=== PATIENT | female | born 1955 | race Caucasian/White ===

== ENCOUNTER 2016-06-11 08:56 | Inpatient (IN) | payer MEDICAID ==
[~2016-06-11] VITALS: Ht 165.1 cm; Wt 103.2 kg
[~2016-06-11 08:56] MED LIST: BENTYL10 MG PO; BIAXIN500 MG PO; BUTORPHANOL10 MG/M1 NAS; CALCIUM 500 +1 EAC3 PO; CELEXA20 MG; CELEXA20 MG PO; CELEXA40 MG PO; COPPERAS1 GRA PO; COUMADIN1 M1 PO; COUMADIN10 M1 PO; COUMADIN5 M1; COUMADIN5 M2 PO; COUMADIN6 M2 PO; Coumadin5 MG PO; DEPAKOTE250 MG PO; DILANTIN100 MG; DOCUSATE SODIU100 M3 PO; DOCUSATE SODIUM PO; DOXEPIN25 MG PO; DOXYCYCLINE HY100 M3 PO; FLOVENT DI50 MCG/ACT; FLUTICASON0.05 MG/AC NAS; FOSAMAX35 MG PO; FOSAMAX70 MG; IRON TABLETS325 MG; IRON325 M1 PO; KCL; KCL PO; LASIX40 MG; LASIX40 MG PO; LEVOTHYROXINE0.1 MG PO; MACROBID100 M1 PO; Mysoline50 MG; NADOLOL40 MG PO; NEBULIZER AEROS1 DEV; NEURONTIN800 MG PO; OSCAL/D,OYSTER250 MG; OXYCONTIN10 MG; OXYCONTIN20 MG PO; OYSTER CAL 500500 MG PO; OYSTER SHELL C1 EAC3 PO; PANTOPRAZOLE SO40 MG PO; POTASSIUM CHLO20 ME3 PO; PRED FORTE 10 M10 ML OP; PREVACID30 M1 PO; PRILOSEC20 M1; PROAIR HFA0.09 MG/AC; PROAIR HFA0.09 MG/AC INH; PROPRANOLOL1 MG/ML PO; REQUIP1 MG PO; RESTORIL15 MG PO; SENNA DOCUSATE1 TAB; SEROQUEL300 MG; SEROQUEL400 MG; SINGULAIR10 MG; SINGULAIR10 MG PO; STADOL NS10 MG/ML NS; SYNTHROID,LEVO50 MCG; SYNTHROID,LEVO50 MCG PO; TEMAZEPAM15 MG; TOPAMAX100 M1 PO; TOPAMAX100 MG; TOPAMAX100 MG PO; TRAZADONE HYDR100 MG; TRAZADONE HYDR100 MG PO; TRILEPTAL600 MG; TRILEPTAL600 MG PO; VALIUM10 MG; VALIUM5 MG PO; VICO75300 PO; VICODIN 5/500 505 MG; VICODIN 5/500 505 MG PO; VICODIN ES 7501 TA1 PO; VISTARIL50 MG; VITAMIN D50000 I2; XANAX2 MG; XANAX2 MG PO; ZOFRAN4 MG; ZOFRAN4 MG PO; [UNRECOGNIZED DRUG - OTHER]
[2016-06-11 09:19] LABS: BASO % 0.4 % (0.0-1.0); EOS # 0.2 10*3/uL (0.0-0.4); EOS % 2.2 % (1.0-4.0); HEMATOCRIT 36.3 % (37.0-47.0); HEMOGLOBIN 12.3 g/dl (12.0-16.0); LYMPH # 1.1 10*3/uL (1.3-4.4); LYMPH % 16.2 % (27.0-41.0); MEAN CELL VOLUME 87.1 fl (81.0-99.0); MEAN CORPUSCULAR HGB 29.5 pg (27.0-31.0); MEAN CORPUSCULAR HGB CONC 33.9 g/dl (33.0-37.0); MEAN PLATELET VOLUME 8.7 fl (9.6-12.3); MONO # 0.3 10*3/uL (0.1-1.0); MONO % 4.6 % (3.0-9.0); NEUT # 5.2 10*3/uL (2.3-7.9); NEUT % 76.3 % (47.0-73.0); PLATELET COUNT AUTOMATED 198 10*3/uL (130-400); RED BLOOD COUNT 4.17 10*6/uL (4.10-5.10); RED CELL DISTRI WIDTH 13.5 % (0-14.5); WHITE BLOOD COUNT 6.8 10*3/uL (4.8-10.8)
[2016-06-11 09:30] LABS: PROTHROMBIN TIME 11.1 SECONDS (9.0-12.4)
[2016-06-11 09:33] LABS: BUN 4 mg/dl (7-24); CARBON DIOXIDE 24 mmol/L (21-32); CHLORIDE 93 mmol/L (98-107); EST GLOM FILT AFRICAN AMERICAN > 60 ml/min; GLUCOSE 124 mg/dL (65-99); POTASSIUM 4.3 mmol/L (3.5-5.1); SODIUM 127 mmol/L (136-145)
[2016-06-11 18:12] LABS: CKMB 1.2 ng/ml (0.5-3.6)
[2016-06-11 18:18] LABS: TROPONIN I 0.052 ng/ml (<0.045)
[2016-06-12 01:23] LABS: CKMB 1.6 ng/ml (0.5-3.6); TROPONIN I 0.035 ng/ml (<0.045)
[2016-06-12 06:32] LABS: BASO % 0.2 % (0.0-1.0); EOS % 0.2 % (1.0-4.0); HEMATOCRIT 35.5 % (37.0-47.0); HEMOGLOBIN 12.1 g/dl (12.0-16.0); LYMPH # 1.2 10*3/uL (1.3-4.4); LYMPH % 28.6 % (27.0-41.0); MEAN CELL VOLUME 87.2 fl (81.0-99.0); MEAN CORPUSCULAR HGB 29.7 pg (27.0-31.0); MEAN CORPUSCULAR HGB CONC 34.1 g/dl (33.0-37.0); MEAN PLATELET VOLUME 8.7 fl (9.6-12.3); MONO # 0.4 10*3/uL (0.1-1.0); MONO % 9.1 % (3.0-9.0); NEUT # 2.6 10*3/uL (2.3-7.9); NEUT % 61.4 % (47.0-73.0); PLATELET COUNT AUTOMATED 205 10*3/uL (130-400); RED BLOOD COUNT 4.07 10*6/uL (4.10-5.10); RED CELL DISTRI WIDTH 13.8 % (0-14.5); WHITE BLOOD COUNT 4.3 10*3/uL (4.8-10.8)
[2016-06-12 06:49] LABS: CKMB 1.4 ng/ml (0.5-3.6); TROPONIN I 0.033 ng/ml (<0.045)
[2016-06-12 07:03] LABS: ALBUMIN 2.7 gm/dl (3.1-4.5); ALKALINE PHOSPHATASE 96 U/L (45-117); BILIRUBIN, TOTAL 0.4 mg/dl (0.2-1.0); BUN 3 mg/dl (7-24); CARBON DIOXIDE 25 mmol/L (21-32); CHLORIDE 102 mmol/L (98-107); CHOLESTEROL 131 mg/dL (<200); EST GLOM FILT AFRICAN AMERICAN > 60 ml/min; FREE T4 1.25 ng/dl (0.76-1.46); GLUCOSE 107 mg/dL (65-99); HDL CHOLESTEROL 61 mg/dl (40-60); LDL CHOLESTEROL 59 mg/dL (9-159); POTASSIUM 3.9 mmol/L (3.5-5.1); SGOT/AST 15 IU/L (3-35); SGPT/ALT 11 U/L (12-78); SODIUM 138 mmol/L (136-145); TOTAL PROTEIN 6.1 gm/dL (6.4-8.2); TRIGLYCERIDES 57 mg/dl (<150); VLDL CHOLESTEROL 11 mg/dL (6-40)
[2016-06-12 07:08] LABS: THYROID STIM HORMONE (HS) 0.008 uIU/ml (0.358-4.75)
[2016-06-12 07:09] LABS: INTERNATIONAL NORM RATIO 1.1 (2.0-3.5); PROTHROMBIN TIME 11.8 SECONDS (9.0-12.4)
[2016-06-12 07:44] LABS: HEMOGLOBIN A1c 5.1 % (4.8-5.6)
[2016-06-12 08:10] LABS: VITAMIN D, 25-HYDROXY 24.6 ng/mL (30-100)
[2016-06-12 08:11] LABS: FOLIC ACID 4.93 ng/mL (>5.38)
[2016-06-12] MEDS ORDERED: VESICARE5 MG PO (09:16)
[2016-06-12] MEDS ORDERED: PROAIR HFA8.5 GM INH (09:16)
[2016-06-12] MEDS ORDERED: AMBIEN10 M1 PO (09:18)
== END 2016-06-12 13:51 | disposition home or self-care (01) | DRG 304 ==
LOC: ED 08:56 → EDHOLD 12:34 → 4E 12:34
PROVIDERS: Emergency Medicine; Hospitalist
DX: I16.1 Hypertensive emergency (principal); E43 Unspecified severe protein-calorie malnutrition; N18.3 Chronic kidney disease, stage 3 (moderate); E87.1 Hypo-osmolality and hyponatremia; I12.9 Hypertensive chronic kidney disease with stage 1 through stage 4 chronic kidney disease, or unspecified chronic kidney disease; G43.101 Migraine with aura, not intractable, with status migrainosus; G89.29 Other chronic pain; E53.8 Deficiency of other specified B group vitamins; E03.9 Hypothyroidism, unspecified; G40.909 Epilepsy, unspecified, not intractable, without status epilepticus; J44.9 Chronic obstructive pulmonary disease, unspecified; E04.9 Nontoxic goiter, unspecified; D63.8 Anemia in other chronic diseases classified elsewhere; F17.200 Nicotine dependence, unspecified, uncomplicated; Z68.37 Body mass index [BMI] 37.0-37.9, adult; Z86.718 Personal history of other venous thrombosis and embolism; Z87.01 Personal history of pneumonia (recurrent); Z87.440 Personal history of urinary (tract) infections; Z83.3 Family history of diabetes mellitus; Z82.49 Family history of ischemic heart disease and other diseases of the circulatory system; Z82.3 Family history of stroke; Z79.899 Other long term (current) drug therapy; Z91.14 Patient's other noncompliance with medication regimen; Z71.6 Tobacco abuse counseling

== ENCOUNTER 2016-06-25 15:00 | Emergency (ER) | payer MEDICAID ==
[~2016-06-25] VITALS: Ht 170.1 cm; Wt 81.6 kg
--- NOTE | ~2016-06-25 | EKG ---
[place], [place] ELECTROCARDIOGRAM REPORT NAME: SCOTT KARIMI UNIT #: [id number] ROOM: DOCTOR: MAGDIEL SINGER MD BIRTHDATE: [birth year] DOS: 06/25/2016 TIME: 16:00. Sinus rhythm, probable left atrial enlargement, otherwise normal electrocardiogram. MAGDIEL SINGER MD CM:EKGRPT:ELECTROCARDIOGRAM REPORT [id number] MAGDIEL SINGER MD
[~2016-06-25 15:00] MED LIST changes: +AMBIEN10 M1 PO; +PROAIR HFA8.5 GM INH; +VESICARE5 MG PO
[2016-06-25 16:11] LABS: BASO # 0.1 10*3/uL (0.0-0.1); BASO % 0.5 % (0.0-1.0); EOS % 0.2 % (1.0-4.0); HEMATOCRIT 43.4 % (37.0-47.0); HEMOGLOBIN 14.7 g/dl (12.0-16.0); LYMPH # 1.9 10*3/uL (1.3-4.4); LYMPH % 20.4 % (27.0-41.0); MEAN CELL VOLUME 88.2 fl (81.0-99.0); MEAN CORPUSCULAR HGB 29.9 pg (27.0-31.0); MEAN CORPUSCULAR HGB CONC 33.9 g/dl (33.0-37.0); MEAN PLATELET VOLUME 8.8 fl (9.6-12.3); MONO # 0.7 10*3/uL (0.1-1.0); MONO % 7.6 % (3.0-9.0); NEUT # 6.5 10*3/uL (2.3-7.9); PLATELET COUNT AUTOMATED 258 10*3/uL (130-400); RED BLOOD COUNT 4.92 10*6/uL (4.10-5.10); RED CELL DISTRI WIDTH 14.5 % (0-14.5); WHITE BLOOD COUNT 9.1 10*3/uL (4.8-10.8)
[2016-06-25 16:27] LABS: ALBUMIN 3.2 gm/dl (3.1-4.5); ALKALINE PHOSPHATASE 116 U/L (45-117); BILIRUBIN, TOTAL 0.4 mg/dl (0.2-1.0); BUN 7 mg/dl (7-24); CARBON DIOXIDE 27 mmol/L (21-32); CHLORIDE 97 mmol/L (98-107); EST GLOM FILT AFRICAN AMERICAN > 60 ml/min; GLUCOSE 113 mg/dL (65-99); POTASSIUM 4.5 mmol/L (3.5-5.1); SGOT/AST 14 IU/L (3-35); SGPT/ALT 17 U/L (12-78); SODIUM 134 mmol/L (136-145); TOTAL PROTEIN 7.7 gm/dL (6.4-8.2)
[2016-06-25 16:29] LABS: TROPONIN I < 0.015 ng/ml (<0.045)
[2016-06-25 16:42] LABS: BILIRUBIN NEGATIVE (NEGATIVE); BLOOD 2+ (NEGATIVE); CLARITY CLEAR (CLEAR); COLOR YELLOW (YELLOW); GLUCOSE NEGATIVE (NEGATIVE); KETONE 1+ (NEGATIVE); LEUKO ESTERASE NEGATIVE (NEGATIVE); NITRITE NEGATIVE (NEGATIVE); PROTEIN 1+ (NEGATIVE); SPECIFIC GRAVITY 1.015 (1.005-1.030)
[2016-06-25 16:58] LABS: EPITHELIAL CELLS 30-35; MUCOUS 1+
[2016-06-25 16:58] LABS: INTERNATIONAL NORM RATIO 1.1 (2.0-3.5); PROTHROMBIN TIME 11.2 SECONDS (9.0-12.4)
[2016-06-25 16:59] LABS: BACTERIA TRACE; URINE REFLEX COMMENT YES (NO); YEAST TRACE
== END 2016-06-25 18:17 | disposition short-term general hospital (02) ==
LOC: ED 15:00
PROVIDERS: Family Medicine Adult Medicine
DX: R41.82 Altered mental status, unspecified (principal); F17.200 Nicotine dependence, unspecified, uncomplicated; D64.9 Anemia, unspecified; G89.29 Other chronic pain; J44.9 Chronic obstructive pulmonary disease, unspecified; I10 Essential (primary) hypertension; G43.909 Migraine, unspecified, not intractable, without status migrainosus; E03.9 Hypothyroidism, unspecified; F31.9 Bipolar disorder, unspecified; G40.909 Epilepsy, unspecified, not intractable, without status epilepticus; Z79.01 Long term (current) use of anticoagulants; Z90.49 Acquired absence of other specified parts of digestive tract; Z98.890 Other specified postprocedural states; Z86.718 Personal history of other venous thrombosis and embolism; Z79.899 Other long term (current) drug therapy

== ENCOUNTER 2016-07-06 15:54 | Emergency (ER) | payer MEDICAID ==
[~2016-07-06] VITALS: Ht 170.1 cm; Wt 117.0 kg
[2016-07-06 16:26] LABS: BASO % 0.3 % (0.0-1.0); EOS # 0.1 10*3/uL (0.0-0.4); EOS % 1.1 % (1.0-4.0); HEMATOCRIT 40.7 % (37.0-47.0); HEMOGLOBIN 13.3 g/dl (12.0-16.0); LYMPH # 1.5 10*3/uL (1.3-4.4); LYMPH % 15.9 % (27.0-41.0); MEAN CELL VOLUME 92.7 fl (81.0-99.0); MEAN CORPUSCULAR HGB 30.3 pg (27.0-31.0); MEAN CORPUSCULAR HGB CONC 32.7 g/dl (33.0-37.0); MEAN PLATELET VOLUME 8.8 fl (9.6-12.3); MONO # 0.7 10*3/uL (0.1-1.0); MONO % 7.4 % (3.0-9.0); NEUT # 6.9 10*3/uL (2.3-7.9); NEUT % 74.9 % (47.0-73.0); PLATELET COUNT AUTOMATED 289 10*3/uL (130-400); RED BLOOD COUNT 4.39 10*6/uL (4.10-5.10); RED CELL DISTRI WIDTH 14.9 % (0-14.5); WHITE BLOOD COUNT 9.2 10*3/uL (4.8-10.8)
[2016-07-06 16:45] LABS: ALBUMIN 3.3 gm/dl (3.1-4.5); BILIRUBIN, TOTAL 0.5 mg/dl (0.2-1.0); BUN 4 mg/dl (7-24); C-REACTIVE PROTEIN 1.68 MG/DL (0-0.3); CARBON DIOXIDE 26 mmol/L (21-32); CHLORIDE 105 mmol/L (98-107); EST GLOM FILT AFRICAN AMERICAN > 60 ml/min; GLUCOSE 135 mg/dL (65-99); MAGNESIUM 1.6 mg/dL (1.5-2.1); POTASSIUM 3.2 mmol/L (3.5-5.1); SGOT/AST 14 IU/L (3-35); SGPT/ALT 17 U/L (12-78); SODIUM 138 mmol/L (136-145); TOTAL PROTEIN 7.4 gm/dL (6.4-8.2)
[2016-07-06 16:46] LABS: ALKALINE PHOSPHATASE 103 U/L (45-117); CPK 50 U/L (26-192)
[2016-07-06 16:47] LABS: TROPONIN I < 0.015 ng/ml (<0.045)
[2016-07-06] MEDS ORDERED: MELATONIN1 M4 PO (17:47)
[2016-07-06 19:26] LABS: BILIRUBIN NEGATIVE (NEGATIVE); BLOOD 1+ (NEGATIVE); CLARITY CLOUDY (CLEAR); COLOR YELLOW (YELLOW); GLUCOSE NEGATIVE (NEGATIVE); KETONE NEGATIVE (NEGATIVE); LEUKO ESTERASE NEGATIVE (NEGATIVE); NITRITE NEGATIVE (NEGATIVE); PH 5.5 (5.0-9.0); PROTEIN TRACE (NEGATIVE); UROBILINOGEN 0.2 E.U./dl (0.2-1.0)
[2016-07-06 19:36] LABS: URINE AMPHETAMINES < 1000 (1000ng/ml); URINE BARBITURATES < 200 (200ng/ml); URINE COCAINE < 300 (300ng/ml)
[2016-07-06 19:38] LABS: BACTERIA 1+; EPITHELIAL CELLS TNTC; MUCOUS 1+; URINE REFLEX COMMENT YES (NO)
== END 2016-07-07 02:55 | disposition short-term general hospital (02) ==
LOC: ED 15:54
PROVIDERS: Student in an Organized Health Care Education/Training Program
DX: R56.9 Unspecified convulsions (principal); J44.9 Chronic obstructive pulmonary disease, unspecified; I10 Essential (primary) hypertension; E03.9 Hypothyroidism, unspecified; G89.29 Other chronic pain; G43.909 Migraine, unspecified, not intractable, without status migrainosus; G40.909 Epilepsy, unspecified, not intractable, without status epilepticus; F17.200 Nicotine dependence, unspecified, uncomplicated; Z79.899 Other long term (current) drug therapy

== ENCOUNTER → 2016-07-10 | Outpatient (CLI) | payer MEDICAID ==
[~2016-07-10] MED LIST changes: +MELATONIN1 M4 PO
== END | disposition home or self-care (01) ==
LOC: RAD 15:50
DX: M15.0 Primary generalized (osteo)arthritis (principal); M47.897 Other spondylosis, lumbosacral region

== ENCOUNTER 2016-07-31 03:12 | Inpatient (IN) | payer MEDICAID ==
[~2016-07-31] VITALS: Ht 165.1 cm; Wt 98.4 kg
--- NOTE | ~2016-07-31 | PR ---
[place], [place] PROGRESS NOTE NAME: SCOTT KARIMI UNIT #: [id number] ROOM: 310 DOCTOR: HANNAH SAVAGE MD BIRTHDATE: [birth year] DOS: 08/04/2016 INTERVAL NOTE CHIEF COMPLAINT: "Oh my goodness I slept so much better, I'm a new woman." SUMMARY OF THE VISIT: The patient was interviewed in the dining area as she walked down the chirinos into the dining area. She engaged readily in conversation and smiled and shook my hand. She reports that she slept well through the entire night and feels so much better from both a depression and anxiety standpoint. She reports no somnolence, lightheadedness or dizziness and is willing to maintain the current medication regimen to see if the symptom resolution persists. She is hopeful that if she has another good day today that she could be discharged then tomorrow. MENTAL STATUS: She is alert and oriented to person, place and very approximate to time. Mood is trending strongly towards euthymia. Affect is more appropriate. The anxiety level seems to have dissipated. There is no hypomania or greta. There are no overt auditory or visual hallucinations. No delusions, no paranoia. Memory is intact. PLAN: I will maintain the current psychotropic regimen, continue to engage in individual and arguelles milieu activity, monitor and support returning home when stable. HANNAH SAVAGE MD CM:PNTRANS [id number] HANNAH SAVAGE MD 08/05/16 0202 interface
--- NOTE | ~2016-07-31 | PR ---
[place], [place] PROGRESS NOTE NAME: SCOTT KARIMI UNIT #: [id number] ROOM: 309 DOCTOR: HANNAH SAVAGE MD BIRTHDATE: [birth year] DOS: 08/02/2016 CHIEF COMPLAINT: "I didn't sleep at all last night, it is because I am in pain and I don't have my Valium." SUMMARY OF THE VISIT: The patient was interviewed in her room. Prior to me entering the room, she was lying quietly in bed. As I approached, she began to sought hysterically stating that she did not sleep a wink last night. When questioned as to why she thought she did not sleep, she very quickly stated that she was taking Valium 10 mg 3 times a day at home as well as Vicodin. I did tell her that I would consider prescribing some form of Valium, but could not prescribe the pain meds and that I would not continue prescribing the benzodiazepines post-discharge. She did tell me that she had a prescription at home from Dr. Key already there. Nurses say that she is very medication seeking throughout the day and very attention seeking, overall the extreme psychotic behavior and mood lability does seem to have dissipated. MENTAL STATUS: She is alert and oriented to person, place and time. Mood does seem to be trending towards euthymia despite the tears this morning. There is no hypomania or greta. There are no auditory or visual hallucinations. Short term, long-term and intermediate memory is intact. PLAN: I will go ahead and start her on Valium 5 mg 3 times daily as a stopgap measure to prevent withdrawal if she truly was on this dosing at home. I will increase the trazodone to 150 mg at bedtime to further aid sleep. We will reach out to Ana Atkins, her outpatient counselor, for some insight on her behavior. We will engage in individual and arguelles milieu activity, returning home when stable. HANNAH SAVAGE MD CM:PNTRANS [id number] HANNAH SAVAGE MD 08/02/16 1554 interface
--- NOTE | ~2016-07-31 | PR ---
[place], [place] PROGRESS NOTE NAME: SCOTT KARIMI UNIT #: [id number] ROOM: 309 DOCTOR: HANNAH SAVAGE MD BIRTHDATE: [birth year] DOS: 08/03/2016 CHIEF COMPLAINT: "I need help. I did not sleep at all. I am so tired and depressed." SUMMARY OF THE VISIT: The patient was interviewed in the quiet room. 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 She reports that the anxiety also is very high, and that she is having a hard time functioning. She also focus somewhat on the pain, reporting multiple past injurious and issues that will lead to her having more pain. She convincingly denied any medication side effects and is willing to allow me to adjust the medicines accordingly. We did talk about her signing in and having this become a work together relationship, and she is willing to sign in, in order to attempt to get the help she needs. MENTAL STATUS: She is alert and oriented. Mood does still seem to be somewhat depressed with anxious overtones. There is no greta or hypomania. There are no voice delusions or paranoia. Memory is relatively intact. PLAN: I will go ahead and increase her trazodone from 150 mg at bedtime to 300 mg at bedtime in an effort to combat the depression as well as aiding sleep. I will increase Valium from 5 mg 3 times a day to 10 mg 3 times a day and augment it with Zanaflex 4 mg 3 times a day. I will also order Zostrix high potency cream to be given 3 times a day to see if this will help with some of the significant joint pain that she is having. We will engage her in individual and arguelles milieu activity. I have notified, Ana Atkins, her outpatient counselor of her admission and Ana as supposed to be by today to discuss her case, will return home when stable. HANNAH SAVAGE MD CM:PNTRANS 3 HANNAH SAVAGE MD 08/03/1625 interface
--- NOTE | ~2016-07-31 | WRIGHTHP ---
[place], [place] PATIENT HISTORY AND PHYSICAL EXAM NAME: SCOTT KARIMI UNIT #: [id number] ROOM: 309 DOCTOR: HANNAH SAVAGE MD BIRTHDATE: [birth year] DOS: 07/31/2016 CHIEF COMPLAINT: "I am here because a miracle happened that does not make sense to me." HISTORY OF PRESENT ILLNESS: This is a 61-year-old white female who was brought into the Emergency Room at [facility] by her daughter due to significant alteration in mental status. Apparently, the patient has a lengthy history of bipolar or schizoaffective disorder and has had multiple admissions in her life many, recently due to extreme mood lability. Daughter reported to the Emergency Room physicians that her mom woke her up in the middle of the night, screaming and yelling reporting that a miracle had happened and that Michael had come to her, she was very volatile and agitated and verbally and physically threatening upon admission into the Emergency Room. The patient continued these behaviors. She was religiously preoccupied, grossly manic and psychotic and verbally and physically aggressive. She required p.r.n. intervention in order to settle down. Given the severity of her mental status decline, it was felt that an inpatient stabilization was warranted and she was admitted to the [facility] to rule out further organic factors and to stabilize on medication. MENTAL STATUS: Upon admission, the patient is alert and oriented. She is grossly manic and psychotic. Thoughts are disjointed and fragmented and she jumps from topic to topic, oftentimes not completing a sentence. At times, she is nearly pressured, but she is interruptible at the present time. She is very religiously preoccupied and very delusional. She does believe that she has been visited by Michael and that everybody else who has not been baptized or evil and are on the side of the devil and needs to be punished. She stopped sort of saying that she will punish them and hurt anybody. After a short conversation with me, she became very guarded and suspicious and would not talk to me stating that she wanted to have breakfast lay down and would talk to me further later in the day. Memory for what I was able to test seems to be relatively intact. DIAGNOSIS: Schizoaffective disorder. PLAN: I will go ahead and start her on Invega 6 mg in the morning in case, I need to utilize Invega Sustenna to improve compliance. I will attempt to load her with Depakote 1750 mg orally now in an effort to break the greta, followed by 500 mg t.i.d. I have ordered both Geodon p.r.n. and Ativan p.r.n. in case if it is required to prevent harm to self and others. We will attempt to engage her in individual and arguelles milieu activity. Of note, the patient had an exceptionally low TSH of 0.007. I have ordered a T3U and a free T4 and will defer further evaluation and management to the hospitalist. [place], [place] PATIENT HISTORY AND PHYSICAL EXAM NAME: SCOTT KARIMI UNIT #: [id number] ROOM: 309 DOCTOR: HANNAH SAVAGE MD BIRTHDATE: [birth year] HANNAH SAVAGE MD CM:HISPHYS:PATIENT HISTORY AND PHYSICAL EXAMINATION [id number] HANNAH SAVAGE MD 07/31/16 0841 interface
--- NOTE | ~2016-07-31 | DS ---
[place], [place] DISCHARGE SUMMARY NAME: SCOTT KARIMI UNIT #: [id number] ROOM: 310 DOCTOR: LIBORIO WEAVER BIRTHDATE: [birth year] DOS: 08/05/2016 HISTORY OF PRESENT ILLNESS: A 61-year-old female brought to the Emergency Room at [facility] by her daughter due to significant altered mental status. The patient has a lengthy history of bipolar or schizoaffective disorder and has had multiple admissions in her life recently due to extreme mood lability. Daughter reported that her mother woke up in the middle of the night, screaming and yelling reporting that a miracle had happened and Michael had come to her. She was very volatile, agitated, verbally and physically threatening. In the Emergency Room, she continue these behaviors throughout her stay. Allegedly preoccupied, but grossly manic, psychotic, verbally and physically aggressive. Given her severity of her mental status decline, it was felt that inpatient stabilization was warranted. She was admitted to rule out organic factors and stabilize on medication. PAST MEDICAL HISTORY: Hypertension, brain aneurysm, chronic anemia, chronic pain, COPD, goiter, headaches, DVT, hypothyroidism, metabolic encephalopathy, seizures. DIAGNOSES: Acute psychosis secondary to bipolar and schizoaffective disorder. MENTAL STATUS: The patient is alert and oriented to person, place, approximate time. Mood euthymic. Affect is appropriate. There are no overt signs of auditory or visual hallucinations, delusions, paranoia, greta or hypomania. PLAN: The patient is being discharged to home in stable condition. She will be on Valium 10 mg t.i.d. She does get this from Dr. Key and has had it recently filled we will not be prescribing a script for this vitamin D. She is on Zanaflex, this will help with some of her anxiety. Trileptal helps with her depression and her migraines. Depakote for her mood lability, impulsivity, and Invega to help break her psychosis and keep her hallucinations away. The patient should follow up with her primary care doctor and psychiatrist for further management and stabilization. [place], [place] DISCHARGE SUMMARY NAME: SCOTT KARIMI UNIT #: [id number] ROOM: 310 DOCTOR: LIBORIO WEAVER BIRTHDATE: [birth year] MIKAEL WEAVER CNP CM:LATA 0 57 LIBORIO WEAVER 08/05/161957 interface
--- NOTE | ~2016-07-31 | PR ---
[place], [place] PROGRESS NOTE NAME: SCOTT KARIMI UNIT #: [id number] ROOM: 309 DOCTOR: HANNAH SAVAGE MD BIRTHDATE: [birth year] DOS: 08/01/2016 CHIEF COMPLAINT: "I feel so much better. All I need is my Trileptal." SUMMARY OF THE VISIT: The patient was interviewed as she rested in bed. She did seem to be more goal oriented in her thinking. She, however, did report she did not want to continue taking some of the meds that I prescribed, instead she wanted to be on Valium, Trileptal and she needed her pain meds back. There does seem to be some med seeking going on. She is as I stated earlier more goal directed in her thinking, still somewhat fragmented at times, but she arranged herself in. Nurses report she has at least taken her medicines and does seem to be tolerating them well and they do seem already to be benefiting her. MENTAL STATUS: She is alert and oriented to person, place, and approximate to time. Mood does seem to be more euthymic. Affect more appropriate. There is no hypomania or greta. There is no overt auditory or visual hallucinations. No delusions are voiced. Memory is intact. PLAN: Her vitamin D level is low at 24.2. The hospitalists have already started her on vitamin D supplementation. I will check a Trileptal level in the a.m. to ensure that it is therapeutic. I will have nursing notify, Ana Atkins as the patient requests to see her plus Ana can help enlist her into being more compliant with her current medications being ordered for her now. We will continue to engage her in individual and arguelles milieu activity with the plan to return home when stable. HANNAH SAVAGE MD CM:PNTRANS [id number] HANNAH SAVAGE MD 08/01/16 2333 interface
[2016-07-31 03:38] VITALS: BP 142/92
[2016-07-31] MEDS ORDERED: PRINIVIL20 M1 PO (03:40)
[2016-07-31] MEDS ORDERED: GEODON20 MG PO (03:49)
[2016-07-31] MEDS ORDERED: TRAZODONE100 MG PO (03:50)
[2016-07-31] MEDS ORDERED: AVPAK PRIMIDONE50 M1 PO (03:50)
[2016-07-31] MEDS ORDERED: PROTONIX40 MG PO (03:50)
[2016-07-31] MEDS ORDERED: SYNTHROID RP0.088 MG PO (03:50)
[2016-07-31 03:51] LABS: BASO % 0.7 % (0.0-1.0); EOS # 0.1 10*3/uL (0.0-0.4); EOS % 1.7 % (1.0-4.0); HEMATOCRIT 38.3 % (37.0-47.0); HEMOGLOBIN 12.9 g/dl (12.0-16.0); LYMPH # 1.4 10*3/uL (1.3-4.4); LYMPH % 23.3 % (27.0-41.0); MEAN CORPUSCULAR HGB 30.6 pg (27.0-31.0); MEAN CORPUSCULAR HGB CONC 33.7 g/dl (33.0-37.0); MEAN PLATELET VOLUME 8.3 fl (9.6-12.3); MONO # 0.6 10*3/uL (0.1-1.0); MONO % 9.6 % (3.0-9.0); NEUT # 3.9 10*3/uL (2.3-7.9); NEUT % 64.5 % (47.0-73.0); PLATELET COUNT AUTOMATED 253 10*3/uL (130-400); RED BLOOD COUNT 4.21 10*6/uL (4.10-5.10); RED CELL DISTRI WIDTH 14.5 % (0-14.5); WHITE BLOOD COUNT 6.1 10*3/uL (4.8-10.8)
[2016-07-31] MEDS ORDERED: VALIUM10 MG PO (03:51)
[2016-07-31] MEDS ORDERED: PEPCID20 MG PO (03:51)
[2016-07-31] MEDS ORDERED: LISINOPRIL20 MG PO (03:51)
[2016-07-31] MEDS ORDERED: CARDIZEM30 MG PO (03:51)
[2016-07-31] MEDS ORDERED: Fioricet 325 MG1 TAB PO (03:52)
[2016-07-31] MEDS ORDERED: MELATONIN1 M3 SL (03:52)
[2016-07-31] MEDS ORDERED: TRILEPTAL PO (03:52)
[2016-07-31 04:07] LABS: ALBUMIN 3.5 gm/dl (3.1-4.5); ALKALINE PHOSPHATASE 122 U/L (45-117); BILIRUBIN, TOTAL 0.4 mg/dl (0.2-1.0); BUN 4 mg/dl (7-24); CARBON DIOXIDE 24 mmol/L (21-32); CHLORIDE 98 mmol/L (98-107); EST GLOM FILT AFRICAN AMERICAN > 60 ml/min; GLUCOSE 113 mg/dL (65-99); POTASSIUM 4.8 mmol/L (3.5-5.1); SGOT/AST 22 IU/L (3-35); SGPT/ALT 16 U/L (12-78); SODIUM 132 mmol/L (136-145); TOTAL PROTEIN 7.6 gm/dL (6.4-8.2)
[2016-07-31 04:15] LABS: THYROID STIM HORMONE (HS) 0.007 uIU/ml (0.358-4.75)
[2016-07-31 05:12] LABS: BILIRUBIN NEGATIVE (NEGATIVE); BLOOD TRACE-INTACT (NEGATIVE); CLARITY CLEAR (CLEAR); COLOR YELLOW (YELLOW); GLUCOSE NEGATIVE (NEGATIVE); KETONE NEGATIVE (NEGATIVE); LEUKO ESTERASE NEGATIVE (NEGATIVE); NITRITE NEGATIVE (NEGATIVE); PROTEIN NEGATIVE (NEGATIVE)
[2016-07-31 05:13] LABS: URINE AMPHETAMINES < 1000 (1000ng/ml); URINE BARBITURATES > 200 (200ng/ml); URINE COCAINE < 300 (300ng/ml)
[2016-07-31 05:26] LABS: URINE REFLEX COMMENT NO (NO); WBC 0-2 wbc/hpf (0-5)
[2016-07-31 07:34] VITALS: BP 131/86
[2016-07-31 09:16] LABS: HEMOGLOBIN A1c 4.7 % (4.8-5.6)
[2016-07-31 09:29] LABS: FREE T4 1.19 ng/dl (0.76-1.46)
[2016-07-31 20:00] VITALS: BP 110/60
[2016-08-01 07:43] VITALS: BP 118/56
[2016-08-01 19:29] VITALS: BP 152/91
[2016-08-02 08:03] VITALS: BP 128/82
[2016-08-02 20:28] VITALS: BP 141/84
[2016-08-03 07:47] VITALS: BP 140/86
[2016-08-03 20:39] VITALS: BP 131/78
[2016-08-04 07:53] VITALS: BP 126/66
[2016-08-04 20:32] VITALS: BP 128/56
[2016-08-05 07:49] VITALS: BP 143/74
[2016-08-05] MEDS ORDERED: PALIPERIDONE ER6 MG PO (08:18)
[2016-08-05] MEDS ORDERED: TRAZODONE150 MG PO (08:18)
[2016-08-05] MEDS ORDERED: DIAZEPAM5 MG PO (08:18)
[2016-08-05] MEDS ORDERED: DIVALPROEX SOD500 MG PO (08:18)
[2016-08-05] MEDS ORDERED: TIZANIDINE HCL4 MG PO (08:18)
[2016-08-05] MEDS ORDERED: D-1000 185 MG-11 TAB PO (10:10)
== END 2016-08-05 17:58 | disposition home health service (06) | DRG 885 ==
LOC: ED 03:12 → 3N 05:45
PROVIDERS: Emergency Medicine; Psychiatry & Neurology Psychiatry
DX: F25.0 Schizoaffective disorder, bipolar type (principal); E43 Unspecified severe protein-calorie malnutrition; D64.9 Anemia, unspecified; J44.9 Chronic obstructive pulmonary disease, unspecified; G89.29 Other chronic pain; Z86.718 Personal history of other venous thrombosis and embolism; G43.909 Migraine, unspecified, not intractable, without status migrainosus; Z71.6 Tobacco abuse counseling; Z82.49 Family history of ischemic heart disease and other diseases of the circulatory system; Z68.36 Body mass index [BMI] 36.0-36.9, adult; G40.909 Epilepsy, unspecified, not intractable, without status epilepticus; E03.9 Hypothyroidism, unspecified; E55.9 Vitamin D deficiency, unspecified; E05.80 Other thyrotoxicosis without thyrotoxic crisis or storm

== ENCOUNTER 2016-08-21 16:17 | Emergency (ER) | payer MEDICAID ==
[~2016-08-21] VITALS: Ht 167.6 cm; Wt 98.4 kg
[~2016-08-21 16:17] MED LIST changes: +AVPAK PRIMIDONE50 M1 PO; +CARDIZEM30 MG PO; +D-1000 185 MG-11 TAB PO; +DIAZEPAM5 MG PO; +DIVALPROEX SOD500 MG PO; +Fioricet 325 MG1 TAB PO; +GEODON20 MG PO; +LISINOPRIL20 MG PO; +MELATONIN1 M3 SL; +PALIPERIDONE ER6 MG PO; +PEPCID20 MG PO; +PRINIVIL20 M1 PO; +PROTONIX40 MG PO; +SYNTHROID RP0.088 MG PO; +TIZANIDINE HCL4 MG PO; +TRAZODONE100 MG PO; +TRAZODONE150 MG PO; +TRILEPTAL PO; +VALIUM10 MG PO
[2016-08-21 17:56] LABS: BASO % 0.2 % (0.0-1.0); EOS % 0.5 % (1.0-4.0); HEMATOCRIT 37.3 % (37.0-47.0); HEMOGLOBIN 12.3 g/dl (12.0-16.0); IG # 0.1 10*3/uL (0.0-0.1); LYMPH % 11.3 % (27.0-41.0); MEAN CELL VOLUME 92.3 fl (81.0-99.0); MEAN CORPUSCULAR HGB 30.4 pg (27.0-31.0); MEAN PLATELET VOLUME 9.2 fl (9.6-12.3); MONO # 1.3 10*3/uL (0.1-1.0); MONO % 14.5 % (3.0-9.0); NEUT # 6.4 10*3/uL (2.3-7.9); NEUT % 72.9 % (47.0-73.0); PLATELET COUNT AUTOMATED 163 10*3/uL (130-400); RED BLOOD COUNT 4.04 10*6/uL (4.10-5.10); WHITE BLOOD COUNT 8.7 10*3/uL (4.8-10.8)
[2016-08-21 18:08] LABS: INTERNATIONAL NORM RATIO 1.1 (2.0-3.5); PROTHROMBIN TIME 11.5 SECONDS (9.0-12.4)
[2016-08-21 18:12] LABS: ALBUMIN 2.9 gm/dl (3.1-4.5); ALKALINE PHOSPHATASE 72 U/L (45-117); BILIRUBIN, TOTAL 0.3 mg/dl (0.2-1.0); BUN 9 mg/dl (7-24); CARBON DIOXIDE 22 mmol/L (21-32); CHLORIDE 99 mmol/L (98-107); EST GLOM FILT AFRICAN AMERICAN > 60 ml/min; GLUCOSE 107 mg/dL (65-99); POTASSIUM 3.9 mmol/L (3.5-5.1); SGOT/AST 9 IU/L (3-35); SGPT/ALT 10 U/L (12-78); SODIUM 135 mmol/L (136-145); TOTAL PROTEIN 7.1 gm/dL (6.4-8.2)
== END 2016-08-21 19:02 | disposition short-term general hospital (02) ==
LOC: ED 16:17
PROVIDERS: Nurse Practitioner Family
DX: S72.142A Displaced intertrochanteric fracture of left femur, initial encounter for closed fracture (principal); F17.200 Nicotine dependence, unspecified, uncomplicated; G89.29 Other chronic pain; J44.9 Chronic obstructive pulmonary disease, unspecified; I10 Essential (primary) hypertension; E03.9 Hypothyroidism, unspecified; G43.909 Migraine, unspecified, not intractable, without status migrainosus; G40.909 Epilepsy, unspecified, not intractable, without status epilepticus; E55.9 Vitamin D deficiency, unspecified; Z90.49 Acquired absence of other specified parts of digestive tract; Z98.890 Other specified postprocedural states; Z79.899 Other long term (current) drug therapy; X58.XXXA Exposure to other specified factors, initial encounter; Y93.89 Activity, other specified; Y92.89 Other specified places as the place of occurrence of the external cause; Y99.9 Unspecified external cause status

== ENCOUNTER 2016-09-06 16:02 | Emergency (ER) | payer MEDICAID ==
[~2016-09-06] VITALS: Wt 86.2 kg
== END 2016-09-06 17:01 | disposition home or self-care (01) ==
LOC: ED 16:02
DX: F31.9 Bipolar disorder, unspecified (principal); F17.200 Nicotine dependence, unspecified, uncomplicated; Z90.49 Acquired absence of other specified parts of digestive tract; I10 Essential (primary) hypertension; E03.9 Hypothyroidism, unspecified; Z86.718 Personal history of other venous thrombosis and embolism; J44.9 Chronic obstructive pulmonary disease, unspecified; Z79.899 Other long term (current) drug therapy

== ENCOUNTER → 2016-09-11 | Outpatient (CLI) | payer MEDICAID ==
[2016-09-11 10:30] LABS: BASO % 0.4 % (0.0-1.0); EOS # 0.2 10*3/uL (0.0-0.4); EOS % 4.4 % (1.0-4.0); HEMATOCRIT 32.2 % (37.0-47.0); HEMOGLOBIN 10.5 g/dl (12.0-16.0); LYMPH # 1.4 10*3/uL (1.3-4.4); LYMPH % 28.6 % (27.0-41.0); MEAN CELL VOLUME 93.3 fl (81.0-99.0); MEAN CORPUSCULAR HGB 30.4 pg (27.0-31.0); MEAN CORPUSCULAR HGB CONC 32.6 g/dl (33.0-37.0); MEAN PLATELET VOLUME 8.6 fl (9.6-12.3); MONO # 0.6 10*3/uL (0.1-1.0); MONO % 11.7 % (3.0-9.0); NEUT # 2.7 10*3/uL (2.3-7.9); NEUT % 54.5 % (47.0-73.0); PLATELET COUNT AUTOMATED 228 10*3/uL (130-400); RED BLOOD COUNT 3.45 10*6/uL (4.10-5.10); RED CELL DISTRI WIDTH 14.4 % (0-14.5)
[2016-09-11 11:00] LABS: ALBUMIN 2.7 gm/dl (3.1-4.5); ALKALINE PHOSPHATASE 83 U/L (45-117); BILIRUBIN, TOTAL 0.3 mg/dl (0.2-1.0); BUN 7 mg/dl (7-24); CARBON DIOXIDE 26 mmol/L (21-32); CHLORIDE 97 mmol/L (98-107); EST GLOM FILT AFRICAN AMERICAN > 60 ml/min; GLUCOSE 87 mg/dL (65-99); POTASSIUM 4.5 mmol/L (3.5-5.1); SGOT/AST 12 IU/L (3-35); SGPT/ALT 9 U/L (12-78); SODIUM 133 mmol/L (136-145); TOTAL PROTEIN 6.4 gm/dL (6.4-8.2)
[2016-09-11 11:10] LABS: THYROID STIM HORMONE (HS) 0.011 uIU/ml (0.358-4.75)
== END | disposition home or self-care (01) ==
LOC: LAB 10:13
PROVIDERS: Physician Assistant
DX: M79.89 Other specified soft tissue disorders (principal); S72.002D Fracture of unspecified part of neck of left femur, subsequent encounter for closed fracture with routine healing; Z79.899 Other long term (current) drug therapy; X58.XXXD Exposure to other specified factors, subsequent encounter

== ENCOUNTER → 2016-12-11 | Outpatient (CLI) | payer MEDICAID | END | disposition home or self-care (01) | LOC: ORTHO 02:49 | DX: M17.12 Unilateral primary osteoarthritis, left knee (principal); M25.762 Osteophyte, left knee; M81.0 Age-related osteoporosis without current pathological fracture ==

== ENCOUNTER → 2017-01-06 | Outpatient (CLI) | payer MEDICAID | END | disposition home or self-care (01) | LOC: RAD 13:00 | DX: M85.80 Other specified disorders of bone density and structure, unspecified site (principal); E55.9 Vitamin D deficiency, unspecified; E03.9 Hypothyroidism, unspecified; R29.890 Loss of height; Z78.0 Asymptomatic menopausal state; Z47.89 Encounter for other orthopedic aftercare ==

== ENCOUNTER → 2017-02-26 | Outpatient (CLI) | payer MEDICAID | END | disposition home or self-care (01) | LOC: CT 00:41 | DX: M19.072 Primary osteoarthritis, left ankle and foot (principal); M21.962 Unspecified acquired deformity of left lower leg; M25.472 Effusion, left ankle ==

== ENCOUNTER → 2017-03-17 | Outpatient (CLI) | payer MEDICAID ==
[2017-03-17 14:25] LABS: BASO # 0.1 10*3/uL (0.0-0.1); BASO % 0.9 % (0.0-1.0); EOS # 0.1 10*3/uL (0.0-0.4); EOS % 1.7 % (1.0-4.0); HEMATOCRIT 37.1 % (37.0-47.0); HEMOGLOBIN 12.9 g/dl (12.0-16.0); LYMPH # 2.1 10*3/uL (1.3-4.4); LYMPH % 36.9 % (27.0-41.0); MEAN CELL VOLUME 91.6 fl (81.0-99.0); MEAN CORPUSCULAR HGB 31.9 pg (27.0-31.0); MEAN CORPUSCULAR HGB CONC 34.8 g/dl (33.0-37.0); MEAN PLATELET VOLUME 8.7 fl (9.6-12.3); MONO # 0.5 10*3/uL (0.1-1.0); MONO % 8.9 % (3.0-9.0); NEUT # 2.9 10*3/uL (2.3-7.9); NEUT % 51.1 % (47.0-73.0); PLATELET COUNT AUTOMATED 203 10*3/uL (130-400); RED BLOOD COUNT 4.05 10*6/uL (4.10-5.10); RED CELL DISTRI WIDTH 12.7 % (0-14.5); WHITE BLOOD COUNT 5.7 10*3/uL (4.8-10.8)
[2017-03-17 14:56] LABS: ALKALINE PHOSPHATASE 82 U/L (45-117); BUN 8 mg/dl (7-24); CHLORIDE 91 mmol/L (98-107); CHOLESTEROL 135 mg/dL (<200); CREATININE 0.56 mg/dL (0.55-1.02); HDL CHOLESTEROL 48 mg/dl (40-60); LDL CHOLESTEROL 70 mg/dL (9-159); POTASSIUM 4.1 mmol/L (3.5-5.1); SGOT/AST 10 IU/L (3-35); SGPT/ALT 12 U/L (12-78); SODIUM 124 mmol/L (136-145); TOTAL PROTEIN 7.1 gm/dL (6.4-8.2); TRIGLYCERIDES 86 mg/dl (<150); VLDL CHOLESTEROL 17 mg/dL (6-40)
[2017-03-17 15:10] LABS: THYROID STIM HORMONE (HS) < 0.005 uIU/ml (0.358-4.75)
== END | disposition home or self-care (01) ==
LOC: LAB 01:12
PROVIDERS: Orthopaedic Surgery
DX: I10 Essential (primary) hypertension (principal); E03.9 Hypothyroidism, unspecified; N32.81 Overactive bladder; E66.01 Morbid (severe) obesity due to excess calories

== ENCOUNTER → 2017-05-04 | Outpatient (CLI) | payer MEDICAID ==
[2017-05-04 14:23] LABS: BASO % 0.5 % (0.0-1.0); EOS # 0.1 10*3/uL (0.0-0.4); EOS % 2.6 % (1.0-4.0); HEMATOCRIT 34.9 % (37.0-47.0); HEMOGLOBIN 12.1 g/dl (12.0-16.0); LYMPH # 1.6 10*3/uL (1.3-4.4); LYMPH % 37.4 % (27.0-41.0); MEAN CELL VOLUME 91.4 fl (81.0-99.0); MEAN CORPUSCULAR HGB 31.7 pg (27.0-31.0); MEAN CORPUSCULAR HGB CONC 34.7 g/dl (33.0-37.0); MEAN PLATELET VOLUME 8.2 fl (9.6-12.3); MONO # 0.5 10*3/uL (0.1-1.0); MONO % 12.6 % (3.0-9.0); NEUT % 46.4 % (47.0-73.0); PLATELET COUNT AUTOMATED 218 10*3/uL (130-400); RED BLOOD COUNT 3.82 10*6/uL (4.10-5.10); RED CELL DISTRI WIDTH 12.7 % (0-14.5); WHITE BLOOD COUNT 4.3 10*3/uL (4.8-10.8)
[2017-05-04 14:52] LABS: ALKALINE PHOSPHATASE 75 U/L (45-117); BUN 10 mg/dl (7-24); CHLORIDE 92 mmol/L (98-107); CREATININE 0.57 mg/dL (0.55-1.02); POTASSIUM 4.3 mmol/L (3.5-5.1); SGOT/AST 10 IU/L (3-35); SGPT/ALT 13 U/L (12-78); SODIUM 125 mmol/L (136-145); VALPROIC ACID (DEPAKENE) 57.6 ug/ml (50-100)
[2017-05-04 15:04] LABS: THYROID STIM HORMONE (HS) < 0.005 uIU/ml (0.358-4.75)
== END | disposition home or self-care (01) ==
LOC: LAB 00:30
PROVIDERS: Physician Assistant
DX: Z51.81 Encounter for therapeutic drug level monitoring (principal); Z79.899 Other long term (current) drug therapy

== ENCOUNTER 2017-05-06 14:36 | Emergency (ER) | payer MEDICAID ==
[~2017-05-06] VITALS: Ht 167.6 cm; Wt 104.3 kg
[2017-05-06 15:55] LABS: BASO % 0.5 % (0.0-1.0); EOS # 0.1 10*3/uL (0.0-0.4); EOS % 2.1 % (1.0-4.0); HEMATOCRIT 35.2 % (37.0-47.0); HEMOGLOBIN 12.1 g/dl (12.0-16.0); LYMPH % 35.1 % (27.0-41.0); MEAN CORPUSCULAR HGB 31.3 pg (27.0-31.0); MEAN CORPUSCULAR HGB CONC 34.4 g/dl (33.0-37.0); MEAN PLATELET VOLUME 8.3 fl (9.6-12.3); MONO # 0.6 10*3/uL (0.1-1.0); MONO % 9.5 % (3.0-9.0); NEUT % 52.3 % (47.0-73.0); PLATELET COUNT AUTOMATED 213 10*3/uL (130-400); RED BLOOD COUNT 3.87 10*6/uL (4.10-5.10); RED CELL DISTRI WIDTH 12.6 % (0-14.5); WHITE BLOOD COUNT 5.8 10*3/uL (4.8-10.8)
[2017-05-06 16:10] LABS: ALKALINE PHOSPHATASE 70 U/L (45-117); BUN 10 mg/dl (7-24); CHLORIDE 91 mmol/L (98-107); CREATININE 0.51 mg/dL (0.55-1.02); POTASSIUM 4.7 mmol/L (3.5-5.1); SGOT/AST 10 IU/L (3-35); SGPT/ALT 14 U/L (12-78); SODIUM 127 mmol/L (136-145); TOTAL PROTEIN 6.8 gm/dL (6.4-8.2)
== END 2017-05-06 18:45 | disposition home or self-care (01) ==
LOC: ED 14:36
PROVIDERS: Emergency Medicine
DX: R60.0 Localized edema (principal); F17.200 Nicotine dependence, unspecified, uncomplicated; G89.29 Other chronic pain; J44.9 Chronic obstructive pulmonary disease, unspecified; I10 Essential (primary) hypertension; E03.9 Hypothyroidism, unspecified; G43.909 Migraine, unspecified, not intractable, without status migrainosus; G40.909 Epilepsy, unspecified, not intractable, without status epilepticus; Z90.49 Acquired absence of other specified parts of digestive tract; Z98.890 Other specified postprocedural states; Z86.718 Personal history of other venous thrombosis and embolism; Z79.899 Other long term (current) drug therapy

== ENCOUNTER → 2017-05-18 | Outpatient (CLI) | payer MEDICAID ==
[2017-05-18 16:04] LABS: BUN 14 mg/dl (7-24); CHLORIDE 92 mmol/L (98-107); CREATININE 0.68 mg/dL (0.55-1.02); POTASSIUM 3.7 mmol/L (3.5-5.1); SODIUM 128 mmol/L (136-145)
== END | disposition home or self-care (01) ==
LOC: LAB 13:38
PROVIDERS: Internal Medicine
DX: E03.9 Hypothyroidism, unspecified (principal); I72.9 Aneurysm of unspecified site

== ENCOUNTER → 2017-05-21 | Outpatient (CLI) | payer MEDICAID | END | disposition home or self-care (01) | LOC: CARD 05-20 14:00 | DX: I07.1 Rheumatic tricuspid insufficiency (principal); M17.12 Unilateral primary osteoarthritis, left knee; I10 Essential (primary) hypertension ==

== ENCOUNTER → 2017-05-25 | Outpatient (CLI) | payer MEDICAID ==
[~2017-05-25] MED LIST changes: +ALENDRONATE SOD70 M1 PO; +CYMBALTA60 MG PO; +DEPAKOTE ER500 MG PO; +DIAZEPAM10 M1 PO; +Ipratropium Brom3 ML INH; +LEVOTHYROXINE50 MCG PO; +OXYBUTYNIN5 MG PO; +Oscal,Oyster S500 MG PO; +TESSALON PERLE100 MG PO; +TRAMADOL HCL50 MG PO
[2017-05-25 16:43] LABS: BUN 6 mg/dl (7-24); CHLORIDE 83 mmol/L (98-107); CREATININE 0.62 mg/dL (0.55-1.02); POTASSIUM 3.9 mmol/L (3.5-5.1)
[2017-05-25 17:01] LABS: SODIUM 118 mmol/L (136-145); THYROID STIM HORMONE (HS) < 0.005 uIU/ml (0.358-4.75)
== END | disposition home or self-care (01) ==
LOC: LAB 15:47
PROVIDERS: Internal Medicine
DX: J45.909 Unspecified asthma, uncomplicated (principal); R09.89 Other specified symptoms and signs involving the circulatory and respiratory systems; M81.0 Age-related osteoporosis without current pathological fracture; I50.33 Acute on chronic diastolic (congestive) heart failure; E03.9 Hypothyroidism, unspecified; J43.9 Emphysema, unspecified

== ENCOUNTER 2017-05-26 11:24 | Inpatient (IN) | payer MEDICAID ==
[~2017-05-26] VITALS: Ht 167.6 cm; Wt 116.6 kg
[2017-05-26] VITALS (7 sets, daily range): BP systolic 106–128; BP diastolic 46–90
--- NOTE | ~2017-05-26 | CON ---
[place], [place] REPORT OF CONSULTATION NAME: SCOTT KARIMI UNIT #: [id number] ROOM: 408 DOCTOR: WILLIAM LUNSFORD MD BIRTHDATE: [birth year] DOS: 05/27/2017 REASON FOR CONSULTATION: Hyponatremia. HISTORY OF PRESENT ILLNESS: The patient is a 62-year-old female that is seen in renal consultation for hyponatremia. Upon review of laboratories, it looks like she has had acute on chronic hyponatremia for quite some time with levels as low as the 120 range. She came to the Emergency Department after outpatient labs showed a sodium level of 118 yesterday. She had been previously taken off of her Lasix after a long hospitalization and rehabilitation after postoperative pelvic fracture and hip replacement and subsequent recuperative therapy. She states that she was inadvertently taken off of Lasix during that period of time and was restarted on this on 05/11/2017 at 40 mg daily. In the interim, at that time when that lab had been done, May 06 labs showed sodium of 127 and May 18 labs showed a sodium of 128. Then May 25 labs showed the level of 118 and she came to the Emergency Department and subsequent labs yesterday and today showed an improvement to 123 and then 130. She was initially diuresed with IV Lasix because of increased fluid overload symptoms. She did not report use of thiazides. She had been prescribed metolazone per her report, but has not picked it up. Upon review of laboratories, she has also had what appears to be persistent primary hypothyroidism. It is as yet unclear as to what the diagnosis is. It appears back in 2007, she had some MRI testing of the brain as well as pituitary by Dr. Green. Her most recent free T4 levels are low at 0.74. She does report otherwise being compliant with her medications. Her prolactin levels when checked were within normal range as was her FSH and LH. Her cortisol and ACTH were normal this year. She has normal serum creatinine level at 0.71. Her A1c is normal. She has normal white count, no significant anemia and her urinalysis was done on the after being on Lasix. Electrolytes were not checked. She has been changed to a lower dose of Lasix, now 20 mg. She continues on lisinopril as well as tizanidine. She is not on opioids, but does take Ultram. She is on trazodone, Mysoline, oxybutynin, Cymbalta, Trileptal, carbamazepine, doxepin, Depakote, Zofran among others. She is reporting some exertional dyspnea, but no chest pains. She has been followed by the Cardiology team and it is felt that she is not in a state of significant cardiac dysfunction. She had a lower extremity Doppler done, which was negative for a DVT and a chest radiograph on the was unremarkable. REVIEW OF SYSTEMS: As per the HPI, otherwise all systems reviewed and negative. PAST MEDICAL, FAMILY AND SOCIAL HISTORY: Reviewed from the H and P, and otherwise unchanged. PHYSICAL EXAMINATION: VITAL SIGNS: Blood pressures in the 80s to the 100s/50s to 70s, afebrile, pulse in the 80s-90s, respiratory rate 18-24, pulse ox 92% on room air. GENERAL: The patient is age appropriate, obese female. She does use traditional cigarettes, has not done it recently when in the hospital. She is well developed and well-nourished otherwise. HEENT: In regard to her aneurysm clipping, she does not recall any history of hypothalamus or pituitary resection. Otherwise, normocephalic and atraumatic. [place], [place] REPORT OF CONSULTATION NAME: SCOTT KARIMI UNIT #: [id number] ROOM: [facility] DOCTOR: WILLIAM LUNSFORD MD BIRTHDATE: [birth year] NECK: Supple, without JVD or lymphadenopathy or bruit. CARDIOVASCULAR: Rate is controlled. No audible rub. No palpable lift or heave. LUNGS: Decreased bilaterally and distant secondary to habitus as well as air entry. No audible wheezing. Mild crackles, perhaps in the mid to lower lung miller. ABDOMEN: Obese, soft, nontender, no rebound, no guarding. SKIN: Without diffuse rashes or breakdowns or nodules. NEUROLOGIC: Without asterixis. Normal gross sensation and motor function. LABORATORIES AND DIAGNOSTICS: White blood cell count 5.1, hemoglobin 12.5, platelet count 256. INR normal. Coags normal. Sodium 130, up from 123 and 118; potassium 4.4; chloride 92; bicarbonate 31; BUN 10; creatinine 0.71; glucose 123. A1c 5, calcium 8.4, phosphorus 4.5, magnesium 2.3. LFTs unremarkable. TSH 0.007 and low, free T4 0.74 and low. Again recent ACTH and cortisol levels were unremarkable. Imaging was reviewed as above. ASSESSMENT AND PLAN: Hyponatremia. The etiology is unclear. The patient certainly had some mild polydipsia. She is on multiple medications, which may induce elevated inappropriate antidiuretic hormone levels in addition to recent pelvic fracture and surgery, which can induce inappropriate antidiuretic hormone level secondary to pain. For now, she seems to be improving with a loop diuretic as well as fluid restriction. Continue to monitor her on a moderate sodium intake and regular diet for now, but keep her the as noted 1500 mL fluid restriction. I would be interested to know what history of endocrinological workup she has had done for her pituitary and her what appears to be secondary hypothyroidism and low TSH. Continue replacement and continue low-dose loop diuretic for edema and continue to follow serial chemistries. The rate of change while somewhat abrupt is still within acceptable limits over the last 48 hours. Thank you very much for the kind consultation. WILLIAM LUNSFORD MD CM:CONSTR:REPORT OF CONSULTATION 01 05/27/172143 interface
--- NOTE | ~2017-05-26 | CON ---
[place], [place] REPORT OF CONSULTATION NAME: SCOTT KARIMI UNIT #: [id number] ROOM: 408 DOCTOR: MAGDIEL SINGER MD BIRTHDATE: [birth year] DOS: 05/26/2017 REASON FOR CONSULTATION: Dyspnea and fluid retention. HISTORY OF PRESENT ILLNESS: The patient is a 62-year-old woman who has a history of anxiety, bipolar disorder and chronic pain as well as ongoing cigarette abuse and obstructive lung disease. She states that recently she has noticed an increase in her fluid retention. She believes that she is gaining weight and that she is developing swelling of her hands and feet. In addition, laboratory studies done as an outpatient by her primary physician, Dr. Ortiz, indicated hyponatremia with a sodium level of 118. She presented to the Emergency Room where repeat sodium level was 123. She was admitted to the hospital for further evaluation. The patient does note that she had recently had her furosemide increased. Previously, she had been taking 20 mg daily, but it was recently increased to 40. She also admits that she consumes a large amount of fluid and even brings water to [facility] with her, so she can drink during the service. She denies lightheadedness or syncope. She denies orthopnea. She has not had any seizures. PAST MEDICAL HISTORY: Includes 1. Bipolar disorder with anxiety and depression. 2. History of "brain aneurysm," details not available. 3. Chronic pain syndrome. 4. Cigarette abuse with COPD. 5. History of goiter with hypothyroidism, on replacement. 6. History of left lower extremity deep venous thrombosis. 7. Essential hypertension. 8. Morbid obesity with BMI over 40. 9. History of cholecystectomy. 10. Left hip replacement. 11. Pelvic surgery. 12. Appendectomy. 13. Foot surgery. 14. Cerebral aneurysm repair. MEDICATIONS: Prior to admission included albuterol by metered dose inhaler p.r.n., DuoNeb q.i.d. p.r.n., alendronate 70 mg weekly, Tessalon Perles 100 mg t.i.d., calcium carbonate b.i.d., cholecalciferol 2000 units daily, diazepam 10 mg t.i.d. p.r.n., diltiazem 30 mg q.i.d., divalproex 500 mg t.i.d., doxepin 25 mg at bedtime, duloxetine 60 mg at bedtime, famotidine 20 mg daily, levothyroxine 50 mcg daily, lisinopril 20 mg daily, Trileptal 600 mg b.i.d., oxybutynin 5 mg b.i.d., paliperidone ER 6 mg daily, pantoprazole 40 mg daily, primidone 50 mg b.i.d., tizanidine 4 mg t.i.d., tramadol 50 mg q. 6 hours and trazodone 150 mg 2 tablets at bedtime. ALLERGIES: The patient has no known drug allergies. FAMILY HISTORY: Both the parents had heart attacks in their mid 50s. [place], [place] REPORT OF CONSULTATION NAME: SCOTT KARIMI UNIT #: [id number] ROOM: [facility] DOCTOR: MAGDIEL SINGER MD BIRTHDATE: [birth year] REVIEW OF SYSTEMS: The patient denies diplopia or loss of vision. She denies focal weakness. She denies lightheadedness or syncope. She does have dyspnea with exertion and fatigue. She denies nausea or vomiting. She denies hemoptysis or hematemesis. She denies orthopnea or PND. She denies chest pain, but she has been dyspneic. She denies change in bowel or bladder habits. She denies blood in her urine or stools. She states that her legs have been swollen, especially on the left. Remainder of the review of systems is negative except as noted above. SOCIAL HISTORY: The patient does not consume alcohol or illicit drugs, but she does smoke a half pack of cigarettes a day. PHYSICAL EXAMINATION: GENERAL: Reveals an overweight white female who is awake, alert and oriented. VITAL SIGNS: Pulse is 101 and regular, blood pressure is 106/54. She is afebrile. She weighs 116.6 kg and has a body mass index of 41.5. HEENT: Normocephalic and atraumatic. Extraocular muscles are intact. Sclerae are clear. Pupils are equal, round and react to light. The oral mucosa is moist. Tongue is midline. NECK: Supple. She had no jugular distention or hepatojugular reflux. Carotids were full. I heard no bruits. She had no neck or supraclavicular masses and no thyromegaly. LUNGS: Respirations are unlabored. She has decreased breath sounds at the bases, but no wheezes or rales. She has no presacral edema or chest wall tenderness. CARDIOVASCULAR: Her heart has a regular rhythm. She has no murmurs, rubs or gallops. The PMI is not displaced. There is no precordial heave, lift or thrill. ABDOMEN: Obese, but otherwise benign, without masses, organomegaly or bruits. EXTREMITIES: Showed trace edema on the right, 1+ edema on the left. Pedal pulses are easily palpated bilaterally. LABORATORY DATA: The patient's electrocardiogram showed sinus rhythm and was a normal tracing. Chest x-ray showed no acute pulmonary disease or cardiomegaly. A lower extremity venous ultrasound showed no evidence for DVT in either lower extremity. Hemoglobin is 12.2, hematocrit 35.0. There are 6400 white cells and 226,000 platelets present. Sodium is 123, potassium 4.3, chloride 89, CO2 of 27, BUN 9, creatinine 0.55, sugar is 109. Serial troponin levels have been negative. ProBNP level is minimally elevated at 308. Her urine specific gravity is less than 1.005. She does have evidence for urinary tract infection. An echocardiogram was done on 05/21/2017 and showed normal left ventricular size, wall thickness, regional wall motion and systolic function with an estimated ejection fraction of 65%. There was evidence for delayed left ventricular relaxation (stage 1 diastolic dysfunction). The right ventricular size and function were normal. The atrial dimensions were normal. No abnormality of valve structure or function was seen. IMPRESSION: [place], [place] REPORT OF CONSULTATION NAME: SCOTT KARIMI UNIT #: [id number] ROOM: 408 DOCTOR: MAGDIEL SINGER MD BIRTHDATE: [birth year] 1. Total body fluid overload with hyponatremia. Differential diagnosis includes drug induced syndrome of inappropriate antidiuretic hormone or psychogenic water drinking. 2. No evidence for significant cardiac dysfunction. 3. Bipolar disorder. 4. History of hypertension. 5. History of deep venous thrombosis. The patient shows no signs of deep venous thrombosis at this time. 6. Hypothyroidism, under replacement. 7. long-term and ongoing tobacco abuse. PLAN: At this point, no other cardiac workup is planned. I will initiate a fluid restriction until the patient has been seen by Nephrology. I think in the long run that will be most beneficial. I would rather not diurese her further at this time, but restrict how much fluid is going in the first place. We will continue to follow the patient with her other physicians and I thank the hospitalist physicians for asking our advice regarding her care. MAGDIEL SINGER MD CM:CONSTR:REPORT OF CONSULTATION 1846 05/26/17 2233 interface
[~2017-05-26 11:24] MED LIST changes: -ALENDRONATE SOD70 M1 PO; -CYMBALTA60 MG PO; -DEPAKOTE ER500 MG PO; -DIAZEPAM10 M1 PO; -Ipratropium Brom3 ML INH; -LEVOTHYROXINE50 MCG PO; -OXYBUTYNIN5 MG PO; -Oscal,Oyster S500 MG PO; -TESSALON PERLE100 MG PO; -TRAMADOL HCL50 MG PO
[2017-05-26] MEDS ORDERED: Ipratropium Brom3 ML INH (11:36)
[2017-05-26] MEDS ORDERED: LEVOTHYROXINE50 MCG PO ×2 (11:37→20:07)
[2017-05-26] MEDS ORDERED: PROAIR HFA8.5 GM INH (11:38)
[2017-05-26] MEDS ORDERED: Oscal,Oyster S500 MG PO (11:40)
[2017-05-26] MEDS ORDERED: ALENDRONATE SOD70 M1 PO (11:41)
[2017-05-26] MEDS ORDERED: OXYBUTYNIN5 MG PO (11:42)
[2017-05-26] MEDS ORDERED: TESSALON PERLE100 MG PO (11:45)
[2017-05-26] MEDS ORDERED: TRAMADOL HCL50 MG PO (11:46)
[2017-05-26 12:18] LABS: BASO % 0.3 % (0.0-1.0); EOS # 0.1 10*3/uL (0.0-0.4); EOS % 1.9 % (1.0-4.0); HEMOGLOBIN 12.2 g/dl (12.0-16.0); LYMPH # 1.2 10*3/uL (1.3-4.4); LYMPH % 18.8 % (27.0-41.0); MEAN CELL VOLUME 88.8 fl (81.0-99.0); MEAN CORPUSCULAR HGB CONC 34.9 g/dl (33.0-37.0); MEAN PLATELET VOLUME 8.1 fl (9.6-12.3); MONO # 0.7 10*3/uL (0.1-1.0); MONO % 10.6 % (3.0-9.0); NEUT # 4.4 10*3/uL (2.3-7.9); NEUT % 67.9 % (47.0-73.0); PLATELET COUNT AUTOMATED 226 10*3/uL (130-400); RED BLOOD COUNT 3.94 10*6/uL (4.10-5.10); RED CELL DISTRI WIDTH 12.5 % (0-14.5); WHITE BLOOD COUNT 6.4 10*3/uL (4.8-10.8)
[2017-05-26 12:32] LABS: ACT PARTIAL THROMBO TIME 26.1 SECONDS (20.8-31.5)
[2017-05-26 12:37] LABS: ALBUMIN 3.1 gm/dl (3.1-4.5); ALKALINE PHOSPHATASE 81 U/L (45-117); BUN 9 mg/dl (7-24); CHLORIDE 89 mmol/L (98-107); CREATININE 0.55 mg/dL (0.55-1.02); LIPASE 214 U/L (73-393); POTASSIUM 4.3 mmol/L (3.5-5.1); SGOT/AST 13 IU/L (3-35); SGPT/ALT 15 U/L (12-78); SODIUM 123 mmol/L (136-145); TOTAL PROTEIN 7.3 gm/dL (6.4-8.2); TROPONIN I < 0.015 ng/ml (<0.045); VALPROIC ACID (DEPAKENE) 28.9 ug/ml (50-100)
[2017-05-26 12:38] LABS: BILIRUBIN NEGATIVE (NEGATIVE); BLOOD 1+ (NEGATIVE); CLARITY CLOUDY (CLEAR); COLOR YELLOW (YELLOW); GLUCOSE NEGATIVE (NEGATIVE); KETONE NEGATIVE (NEGATIVE); LEUKO ESTERASE 3+ (NEGATIVE); NITRITE POSITIVE (NEGATIVE); PH 5.5 (5.0-9.0); SPECIFIC GRAVITY <= 1.005 (1.005-1.030)
[2017-05-26 12:49] LABS: BACTERIA 3+; EPITHELIAL CELLS 16-20; RBC 0-2 rbc/hpf (0-2); WBC TNTC wbc/hpf (0-5)
[2017-05-26] MEDS ORDERED: DOXEPIN25 MG PO (15:27)
[2017-05-26] MEDS ORDERED: CYMBALTA60 MG PO (15:29)
[2017-05-26] MEDS ORDERED: VALIUM10 MG PO (20:06)
[2017-05-26] MEDS ORDERED: DEPAKOTE ER500 MG PO (20:06)
[2017-05-26] MEDS ORDERED: DIAZEPAM10 M1 PO (20:12)
[2017-05-27 00:01] VITALS: BP 107/60
[2017-05-27 07:24] LABS: BASO % 0.6 % (0.0-1.0); EOS # 0.1 10*3/uL (0.0-0.4); EOS % 2.4 % (1.0-4.0); HEMATOCRIT 36.8 % (37.0-47.0); HEMOGLOBIN 12.5 g/dl (12.0-16.0); LYMPH # 1.5 10*3/uL (1.3-4.4); LYMPH % 29.5 % (27.0-41.0); MEAN CORPUSCULAR HGB 31.4 pg (27.0-31.0); MEAN PLATELET VOLUME 8.6 fl (9.6-12.3); MONO # 0.7 10*3/uL (0.1-1.0); MONO % 13.1 % (3.0-9.0); NEUT # 2.7 10*3/uL (2.3-7.9); NEUT % 53.8 % (47.0-73.0); PLATELET COUNT AUTOMATED 256 10*3/uL (130-400); RED BLOOD COUNT 3.98 10*6/uL (4.10-5.10); RED CELL DISTRI WIDTH 12.9 % (0-14.5); WHITE BLOOD COUNT 5.1 10*3/uL (4.8-10.8)
[2017-05-27 07:26] LABS: MEAN CELL VOLUME 92.5 fl (81.0-99.0)
[2017-05-27 07:27] LABS: ACT PARTIAL THROMBO TIME 25.9 SECONDS (20.8-31.5)
[2017-05-27 07:49] LABS: ALBUMIN 3.3 gm/dl (3.1-4.5); ALKALINE PHOSPHATASE 77 U/L (45-117); BUN 10 mg/dl (7-24); CHLORIDE 92 mmol/L (98-107); CREATININE 0.71 mg/dL (0.55-1.02); FREE T4 0.74 ng/dl (0.76-1.46); PHOSPHOROUS 4.5 mg/dL (2.5-4.9); POTASSIUM 4.4 mmol/L (3.5-5.1); SGOT/AST 12 IU/L (3-35); SGPT/ALT 14 U/L (12-78); SODIUM 130 mmol/L (136-145); TOTAL PROTEIN 7.3 gm/dL (6.4-8.2)
[2017-05-27 07:53] LABS: THYROID STIM HORMONE (HS) 0.007 uIU/ml (0.358-4.75)
[2017-05-27 08:00] VITALS: BP 115/78
[2017-05-27 12:00] VITALS: BP 90/58
[2017-05-27 16:00] VITALS: BP 88/52
[2017-05-27 20:00] VITALS: BP 100/49
[2017-05-28] VITALS: BP 100/52
[2017-05-28 07:02] LABS: BASO # 0.1 10*3/uL (0.0-0.1); BASO % 1.1 % (0.0-1.0); EOS # 0.2 10*3/uL (0.0-0.4); EOS % 3.8 % (1.0-4.0); HEMATOCRIT 35.6 % (37.0-47.0); HEMOGLOBIN 12.1 g/dl (12.0-16.0); LYMPH # 1.8 10*3/uL (1.3-4.4); LYMPH % 37.2 % (27.0-41.0); MEAN CELL VOLUME 92.2 fl (81.0-99.0); MEAN CORPUSCULAR HGB 31.3 pg (27.0-31.0); MEAN PLATELET VOLUME 8.8 fl (9.6-12.3); MONO # 0.8 10*3/uL (0.1-1.0); NEUT % 41.3 % (47.0-73.0); PLATELET COUNT AUTOMATED 237 10*3/uL (130-400); RED BLOOD COUNT 3.86 10*6/uL (4.10-5.10); WHITE BLOOD COUNT 4.8 10*3/uL (4.8-10.8)
[2017-05-28 07:19] LABS: BUN 14 mg/dl (7-24); CHLORIDE 95 mmol/L (98-107); POTASSIUM 4.4 mmol/L (3.5-5.1); SODIUM 129 mmol/L (136-145)
[2017-05-28 08:00] VITALS: BP 100/50
[2017-05-28 12:00] VITALS: BP 112/59
[2017-05-28 16:00] VITALS: BP 123/65
[2017-05-28 20:00] VITALS: BP 113/59
[2017-05-29] VITALS: BP 103/58
[2017-05-29 05:55] LABS: ALKALINE PHOSPHATASE 68 U/L (45-117); BUN 16 mg/dl (7-24); CHLORIDE 94 mmol/L (98-107); CREATININE 0.67 mg/dL (0.55-1.02); POTASSIUM 4.5 mmol/L (3.5-5.1); SGOT/AST 8 IU/L (3-35); SGPT/ALT 14 U/L (12-78); SODIUM 130 mmol/L (136-145)
[2017-05-29 06:13] LABS: BASO % 0.3 % (0.0-1.0); EOS % 0.3 % (1.0-4.0); HEMATOCRIT 35.7 % (37.0-47.0); LYMPH % 30.3 % (27.0-41.0); MEAN CORPUSCULAR HGB 30.9 pg (27.0-31.0); MEAN CORPUSCULAR HGB CONC 33.6 g/dl (33.0-37.0); MEAN PLATELET VOLUME 8.4 fl (9.6-12.3); MONO # 0.7 10*3/uL (0.1-1.0); MONO % 10.3 % (3.0-9.0); NEUT # 3.8 10*3/uL (2.3-7.9); NEUT % 58.3 % (47.0-73.0); PLATELET COUNT AUTOMATED 269 10*3/uL (130-400); RED BLOOD COUNT 3.88 10*6/uL (4.10-5.10); RED CELL DISTRI WIDTH 12.7 % (0-14.5); WHITE BLOOD COUNT 6.5 10*3/uL (4.8-10.8)
[2017-05-29 08:00] VITALS: BP 108/60
[2017-05-29 12:00] VITALS: BP 108/60
[2017-05-29] MEDS ORDERED: LISINOPRIL10 M1 PO (12:45)
[2017-05-29] MEDS ORDERED: PREDNISONE10 MG PO (12:45)
[2017-05-29] MEDS ORDERED: FUROSEMIDE40 MG PO (12:47)
== END 2017-05-29 13:45 | disposition home health service (06) | DRG 292 ==
LOC: ED 11:24 → EDHOLD 13:14 → 4E 13:14
PROVIDERS: Emergency Medicine; Internal Medicine
DX: I50.33 Acute on chronic diastolic (congestive) heart failure (principal); E87.1 Hypo-osmolality and hyponatremia; E44.0 Moderate protein-calorie malnutrition; E66.01 Morbid (severe) obesity due to excess calories; E87.8 Other disorders of electrolyte and fluid balance, not elsewhere classified; N39.0 Urinary tract infection, site not specified; Z68.41 Body mass index [BMI] 40.0-44.9, adult; I11.0 Hypertensive heart disease with heart failure; E87.70 Fluid overload, unspecified; R73.9 Hyperglycemia, unspecified; J44.9 Chronic obstructive pulmonary disease, unspecified; G40.909 Epilepsy, unspecified, not intractable, without status epilepticus; F41.9 Anxiety disorder, unspecified; F31.9 Bipolar disorder, unspecified; R32 Unspecified urinary incontinence; D64.9 Anemia, unspecified; Z96.642 Presence of left artificial hip joint; E53.8 Deficiency of other specified B group vitamins; E55.9 Vitamin D deficiency, unspecified; G89.4 Chronic pain syndrome; F17.210 Nicotine dependence, cigarettes, uncomplicated; R82.71 Bacteriuria; E03.9 Hypothyroidism, unspecified; G43.909 Migraine, unspecified, not intractable, without status migrainosus; Z90.49 Acquired absence of other specified parts of digestive tract; Z90.89 Acquired absence of other organs; Z86.718 Personal history of other venous thrombosis and embolism; Z82.49 Family history of ischemic heart disease and other diseases of the circulatory system; Z79.899 Other long term (current) drug therapy; Z83.3 Family history of diabetes mellitus; Z82.3 Family history of stroke; Z71.6 Tobacco abuse counseling

== ENCOUNTER 2017-06-07 12:23 | Inpatient (IN) | payer MEDICAID ==
[~2017-06-07] VITALS: Ht 167.6 cm; Wt 114.3 kg
--- NOTE | ~2017-06-07 | PR ---
[place], [place] PROGRESS NOTE NAME: SCOTT KARIMI UNIT #: [id number] ROOM: 511 DOCTOR: LAUREN URENA MD,COLTON BIRTHDATE: [birth year] DOS: 06/11/2017 PULMONARY PROGRESS NOTE SUBJECTIVE: The patient was noted comfortable at this time, resting on the bed without any acute distress. She has not been noted any symptoms of chest pain. There was no cough noted. OBJECTIVE: VITAL SIGNS: Normal temperature, respiratory rate 18, heart rate 87, blood pressure 112/71. Pulse oxygen saturation recorded on room air 92% saturation at rest. HEENT: Chronic obesity. NECK: Supple. CARDIOVASCULAR: S1, S2 is audible. LUNGS: Noted without any wheeze or crackles. ABDOMEN: Soft, nontender. LABORATORY DATA: BMP today, sodium 121, chloride of 83. Normal BUN and creatinine. IMPRESSION: 1. Persistent severe hyponatremia. 2. The patient with resolving chronic obstructive pulmonary disease. PLAN OF THERAPY: No changes in the plan of management at this time. Continue the patient's current plan of management and care, other therapies. Usual medical management. COLTON AGUILAR MD CM:JN [id number] COLTON URENA MD 06/21/17 0843 interface
--- NOTE | ~2017-06-07 | PR ---
[place], [place] PROGRESS NOTE NAME: SCOTT AKRIMI UNIT #: [id number] ROOM: 511 DOCTOR: LAUREN URENA MD,COLTON BIRTHDATE: [birth year] DOS: 06/13/2017 SUBJECTIVE: The patient was noted comfortably resting, still noted general weakness and fatigue. Denies symptoms of chest pain, coughing or sputum expectoration, ____ of abdominal pain. The patient does have mild cough, but there was no sputum expectoration. OBJECTIVE: VITAL SIGNS: Normal temperature, respiratory rate 18, heart rate 77, blood pressure 105/77. Pulse oxygen saturation on room air 95% saturation. HEENT: Shows head was atraumatic. Eyes nonicterus. NECK: Supple. CARDIOVASCULAR: S1, S2 audible. LUNGS: Noted with [id number]-[id number] decreased breath sounds bilaterally. ABDOMEN: Soft, nontender. EXTREMITIES: Without any acute edema. LABORATORY DATA: The blood culture shows no bacterial growth. The BMP this morning was noted with normal BUN and creatinine. Sodium is improving gradually to 126 today noted. CBC of the patient this morning, hemoglobin 11.8, WBC count and platelet count normal. Culture of the sputum was noted as light growth of Klebsiella pneumoniae. IMPRESSION: Acute bronchitis with exacerbation of chronic obstructive pulmonary disease, hyponatremia. Chronic obesity. SIADH. PLAN OF MANAGEMENT: Current plan of management as in progress. Usual care, other supportive care. COLTON AGUILAR MD CM:PNTRANS [id number] COLTON URENA MD 06/14/17 0342 interface
--- NOTE | ~2017-06-07 | CON ---
[place], [place] REPORT OF CONSULTATION NAME: SCOTT KARIMI UNIT #: [id number] ROOM: 511 DOCTOR: COLTON ARITA MD BIRTHDATE: [birth year] DOS: 06/08/2017 PULMONARY CONSULTATION EVALUATION. REASON FOR CONSULTATION: Assessment of COPD. HISTORY OF PRESENT ILLNESS: This is a 62-year-old white female who has been admitted to the hospital under the care of the hospitalist service on 06/07/2017. The patient has been known with history of chronic tobacco use. The patient came into the Emergency Room complaining of pain in the lower back. The patient was also noted with a past history of recent hospitalization with hyponatremia as well as diastolic congestive heart failure at that time and discharged from the hospital. Coughing has been noted increasingly worse and for this patient to remain nonproductive excessive chest congestion. Denies symptoms of hemoptysis or any chest pain. Shortness of breath was noted occurring with exertion. The wheezing was also reported intermittently. REVIEW OF SYSTEMS: CONSTITUTIONAL: She does complain of fatigue and tiredness. Denies symptoms of fever or chills. EYES: Denies burning, redness, tenderness, discharge. EAR, NOSE, THROAT SYMPTOMS: Denies sore throat, hoarseness, otalgia, postnasal drainage, or epistaxis. CARDIOVASCULAR: Denies angina pain, edema, pain in lower extremities or palpitations. GASTROINTESTINAL: The patient reported upper abdominal pain on this admission, mild to moderate this time without radiation. On admission as well, she seemed to be better this morning. She denies symptoms of hematemesis, melena, hematochezia, nausea, vomiting or diarrhea. Denies symptoms of dysphagia. GENITOURINARY: No dysuria, suprapubic pain, or hematuria. MUSCULOSKELETAL: No acute joint pain, redness, or tenderness. The patient did fell at home complaining of some pain in the tailbone after that. SKIN: Denies abnormal lesions or rashes. CENTRAL NERVOUS SYSTEM: Generalized weakness reported. The patient without any symptoms of dizziness, headache, diplopia, syncopal episodes. Remaining systems were reviewed with the patient, they were noted all negative. PAST MEDICAL HISTORY: 1. The patient was noted with a history of chronic back pain. The patient with intervertebral disk disease. 2. COPD. 3. Depression. 4. History of congestive heart failure, diastolic dysfunction. 5. Hypothyroidism. 6. Migrainous headache. 7. Obesity. 8. Vitamin D deficiency. PAST SURGICAL HISTORY: [place], [place] REPORT OF CONSULTATION NAME: SCOTT KARIMI UNIT #: [id number] ROOM: [facility] DOCTOR: COLTON ARITA MD BIRTHDATE: [birth year] 1. Cerebral aneurysm repair for this patient. 2. Cholecystectomy. 3. Left hip replacement. 4. Pelvic surgery. 5. Appendectomy. 6. Surgery of the foot. SOCIAL HISTORY: The patient is , has 2 children lived at home. Denies any history of alcohol use or any illicit drug. Tobacco use noted for the patient since early teens for this patient and smoking a pack of cigarettes per day. Denies history of illicit drug use. FAMILY HISTORY: The patient's father at 56 of myocardial infarction. Mother at the age of 56 of myocardial infarction as well. HOME MEDICATIONS: Listed as use of ProAir HFA inhaler, Fosamax, Tessalon Perles, calcium with vitamin D, diazepam, Cardizem, Depakote, doxepin, Cymbalta, famotidine, Lasix, gabapentin, DuoNeb, levothyroxine, lisinopril, Zaroxolyn, Invega, Protonix, primidone, tizanidine, trazodone, tramadol, and other p.r.n. medications administration. DRUG ALLERGIES: The patient reported as no known drug allergies. PHYSICAL EXAMINATION: GENERAL: This is a 62-year-old white female currently comfortably resting. The patient lying in the bed. VITAL SIGNS: Height of 5 feet 6 inches, weight of 246 pounds, BMI of 39.7. Vital signs as a normal temperature noted since admission, respiratory rate range between 28-18, heart rate 81-85, blood pressure 100/46-102/54. Pulse oxygen saturation on 2 liters nasal cannula 93% saturation recorded. HEENT: Examination shows head was atraumatic. Eyes nonicterus. Decreased posterior pharyngeal space. CARDIOVASCULAR: S1, S2 was audible. LUNGS: The patient was noted with general reduction in breath sounds. There were no crackles. Scattered expiratory wheezing. ABDOMEN: Noted with severe obesity. Bowel sounds present without tenderness. EXTREMITIES: The patient was noted chronic obesity without any edema. MUSCULOSKELETAL: Noted without any acute deformities. Visible skin, no lesions or rashes. MUSCULOSKELETAL: Without any acute deformities. LABORATORY DATA: Which were reviewed for this consultation, BMP of 06/02/2017, sodium 126, otherwise normal. CBC of 06/07/2017, for patient was noted essentially normal CBC. Lactic acid 2.2 on admission. Followup lactic acid 2.0. Arterial blood gas for the patient that was done yesterday at 1.5 liter nasal cannula, pH of 7.49, pCO2 of 37, pO2 of 82. CBC of this morning for the patient essentially remains the same. CMP for the patient that was done this morning shows sodium 120, CO2 of 30. Chloride of 82. Albumin 2.9. Remaining LFTs normal. Review of the 1 view chest x-ray of the patient that was done on this admission was noted with COPD changes without any acute visible cross [place], [place] REPORT OF CONSULTATION NAME: SCOTT KARIMI UNIT #: [id number] ROOM: [facility] DOCTOR: LAUREN URENA MD,[facility] BIRTHDATE: [birth year] pulmonary infiltration or pulmonary nodules. Changes of COPD and emphysema noted in the upper lung. The radiologist stated in the report as finding of UIP. I do not see any findings consistent with UIP in this patient on the current chest CT scan. IMPRESSION: 1. The patient will be admitted to the hospital noted with recurrence of acute exacerbation of chronic obstructive pulmonary disease at the present time with recurrent Hyponatremia. 2. The patient with chronic nicotine dependence. 3. Severe obesity. Suspicion of obstructive sleep apnea disorder. 4. Etiology of hyponatremia remains unclear. Reported with past history of congestive heart failure, diastolic dysfunction, but other etiologies of the hyponatremia should be assessed for the patient including for SIADH for this patient. Intravascular volume depletion or other salt losing nephropathies. The patient was also noted with multiple psychiatric medications use that could also result in SIADH secondarily because of those as well. PLAN OF TREATMENT: Addition of Solu-Medrol 40 mg b.i.d. dosing. The patient's medical and acute exacerbation of COPD. Bronchodilators to be continued every 4 hours. Continue current antibiotics. The patient is also getting multiple diuretic, which has been assessed by the Cardiology Services as well for adjustment of the medication because of hyponatremia, etiology for this patient and assessment would be advised from the Nephrology services for comprehensive assessment to exclude other etiologies of hyponatremia for this patient, which may not be related to diuretics and others. Other supportive therapy, plan of management and care. Usual treatment. Nicotine replacement patches will be ordered. Any additional treatment changes necessary will be ordered based on progression of the illness. Obtain a sputum for Gram stain and culture as well. COLTON AGUILAR MD CM:CONSTR:REPORT OF CONSULTATION 1250 06/08/17 1943 interface
--- NOTE | ~2017-06-07 | PR ---
[place], [place] PROGRESS NOTE NAME: SCOTT KARIMI UNIT #: [id number] ROOM: 511 DOCTOR: LAUREN URENA MD,COLTON BIRTHDATE: [birth year] DOS: 06/14/2017 SUBJECTIVE: The patient seen and examined on 06/14/2017. She has been noted comfortable at this time, resting on the bed, sleeping at this time, has not reported any symptoms of cough. Shortness of breath for the patient was described to be improving by the nursing staff. She continued fluid restriction as well. OBJECTIVE: VITAL SIGNS: Normal temperature, respiratory rate 18, heart rate 71, blood pressure 118/57-114/70. Pulse oxygen saturation of the patient recorded, room air 96% saturation. HEENT: Examination shows head was atraumatic. Eyes nonicterus. NECK: Supple. CARDIOVASCULAR: S1, S2 audible. LUNGS: Mild to moderate decreased breath sounds bilaterally. There are no wheezes or crackles. ABDOMEN: Noted soft and obese. EXTREMITIES: Without any acute edema. LABORATORY DATA: The culture of the sputum of the patient noted light growth of Klebsiella pneumoniae. IMPRESSION: 1. Resolving acute exacerbation of chronic obstructive pulmonary disease, gradual improvement of the hyponatremia noted, sodium today was noted as 125. 2. Syndrome of inappropriate antidiuretic hormone secretion. PLAN OF THERAPY: No changes in the plan for this patient at this time. Continuation of the current plan of the patient at the present time. Usual care, other supportive plan of care and management. COLTON AGUILAR MD CM:PNTRANS [phone] COLTON URENA MD 06/15/17 1430 interface
--- NOTE | ~2017-06-07 | PR ---
[place], [place] PROGRESS NOTE NAME: SCOTT KARIMI UNIT #: [id number] ROOM: 511 DOCTOR: LAUREN URENA MD,COLTON BIRTHDATE: [birth year] DOS: 06/15/2017 PULMONARY PROGRESS NOTE SUBJECTIVE: The patient was noted comfortable at this time, resting on the bed. She was denying any symptoms of chest pain. Coughing has been noted, almost improved. There was no shortness of breath at rest reported. General weakness persisted. The patient mostly noted bedbound. OBJECTIVE: VITAL SIGNS: This morning, normal temperature, respiratory rate 20, heart rate 80, blood pressure of 104/60 to 116/56. Intake of 940, outputs were not documented. The pulse oxygen saturation on room air at rest 97% saturation. HEENT: Head was atraumatic. Eyes nonicterus. NECK: Supple. CARDIOVASCULAR: S1, S2 is audible. LUNGS: Without any wheeze or crackles. ABDOMEN: Soft, nontender with chronic obesity. Bowel sounds are present. EXTREMITIES: Without any acute edema. LABORATORY DATA: Renal function panel today, sodium 128, chloride 94. IMPRESSION: 1. Gradual improvement of the syndrome of inappropriate antidiuretic hormone secretion with hyponatremia, currently treated with fluid restriction, salt tablets. 2. The patient with chronic obesity. 3. Resolving acute bronchitis and chronic obstructive pulmonary disease. PLAN OF MANAGEMENT: No changes from the pulmonary standpoint for the patient at this time. Continuation of current therapy and plan of management. Usual care. Other supportive plan of treatment as previously. COLTON AGUILAR MD CM:PNTRANS [id number] COLTON URENA MD 06/15/17 1404 interface
--- NOTE | ~2017-06-07 | PR ---
[place], [place] PROGRESS NOTE NAME: SCOTT KARIMI UNIT #: [id number] ROOM: 511 DOCTOR: LAUREN URENA MD,COLTON BIRTHDATE: [birth year] DOS: 06/09/2017 SUBJECTIVE: The patient was still noted cough that was thought to be moderate to severe, nonproductive. Denies symptoms of chest pain. Denies symptoms of wheezing. Denies symptoms of hemoptysis. Denies any nausea, vomiting, diarrhea, or any abdominal pain. OBJECTIVE: VITAL SIGNS: Showed normal temperature, respiratory rate 16, heart rate 78, blood pressure 150/50-118/69. Pulse oxygen saturation on 2 liters nasal cannula is 98% saturation. HEENT: No acute change. NECK: Supple. CARDIOVASCULAR: S1, S2 audible. LUNGS: The patient was noted without any wheezing or crackle. Breaths are noted mildly decreased bilaterally. ABDOMEN: Soft and obese. EXTREMITIES: Without edema. LABORATORY DATA: BMP today, sodium was decreased at 115, chloride of 78. IMPRESSION: 1. The patient with severe hyponatremia, which is worse in the last 24 hours with possibility of syndrome of inappropriate antidiuretic hormone secretion, currently being assessed and managed by the nephrology services. 2. Exacerbation of chronic obstructive pulmonary disease with nonproductive cough, suspected mucus impaction. PLAN OF TREATMENT: The patient was suggested fiberoptic bronchoscopy, but the patient does not wish to do that. In the meantime, continue conservative treatment, bronchodilators, oxygen and other therapies. Usual care. COLTON AGULIAR MD CM:PNTRANS [id number] COLTON URENA MD 06/09/17 1300 interface
--- NOTE | ~2017-06-07 | PR ---
[place], [place] PROGRESS NOTE NAME: SCOTT KARIMI UNIT #: [id number] ROOM: 511 DOCTOR: ELI CAPONEJUNE BIRTHDATE: [birth year] DOS: 06/12/2017 SUBJECTIVE: The patient is a 62-year-old female we are following for urine culture that had 25,000 colonies of ESBL E. coli. Her blood cultures are negative. Sputum culture only had oral corrine. Her Merrem was stopped yesterday. She is alert, fairly oriented. Denies any nausea, vomiting or diarrhea. No cough or shortness of breath. Denies any pain. No dysuria or frequency. LABORATORY DATA: Shows her last WBCs were normal 2 days ago. Labs show BUN 22, creatinine 0.73, albumin 2.9. She has good appetite. CURRENT MEDICATIONS: Include Dulcolax, Sinequan, Fosamax, Zostrix, Synthroid, Lasix, Nicoderm, vitamin D, Pepcid, Lovenox, Os-Rishabh, Protonix, Mysoline, Trileptal, Depakote, Desyrel, Zanaflex, Ditropan, Cardizem, DuoNeb, Tylenol, Valium and Ultram. PHYSICAL EXAMINATION: VITAL SIGNS: Temperature 98.0, pulse 78, respirations 18, BP 96/58. She has had no fevers overnight. GENERAL: A 62-year-old female with flat affect. HEAD, EYES, EARS, NOSE AND THROAT: Normocephalic. No thrush. LUNGS: Few rales in the bilateral bases. Respirations even and unlabored. HEART: Regular rhythm. No murmur appreciated. ABDOMEN: Soft, nontender. EXTREMITIES: +1 to 2 edema, bilateral lower extremities. SKIN: Warm, dry, free of rashes. ASSESSMENT: Asymptomatic bacteriuria with extended-spectrum beta-lactamase Escherichia coli. PLAN: No antibiotics are indicated. She is to remain in contact isolation while she is hospitalized despite the fact that the urine culture reflects colonization. At this point in time, we will see her in followup p.r.n. Case discussed with Dr. Eliseo Mueller. JUNE LIBORIO BENITEZ [place], [place] PROGRESS NOTE NAME: SCOTT KARIMI UNIT #: [id number] ROOM: 511 DOCTOR: ELI CAPONEJUNE BIRTHDATE: [birth year] ELISEO MUELLER MD CM:PNBETSY [id number] [phone] ELI CAPONE 06/12/17 8288 interface
--- NOTE | ~2017-06-07 | EKG ---
[place], [place] ELECTROCARDIOGRAM REPORT NAME: SCOTT KAIRMI UNIT #: [id number] ROOM: 511 DOCTOR: LAUREN URENA MD,COLTON BIRTHDATE: [birth year] DOS: 06/07/2017 Electrocardiogram done for the patient on 06/07/2017, at 01:12 p.m. Sinus tachycardia noted, heart rate 100 beats per minute. No other abnormalities noted on the electrocardiogram. COLTON AGUILAR MD CM:EKGRPT:ELECTROCARDIOGRAM REPORT [id number] COLTON URENA MD
--- NOTE | ~2017-06-07 | PR ---
[place], [place] PROGRESS NOTE NAME: SCOTT KARIMI UNIT #: [id number] ROOM: 511 DOCTOR: LAUREN URENA MD,COLTON BIRTHDATE: [birth year] DOS: 06/10/2017 SUBJECTIVE: The patient stated reduction of the symptoms of cough. Denies any sputum expectoration. Shortness of breath of the patient has been decreasing. There were no symptoms of chest pain reported by the patient. OBJECTIVE: VITAL SIGNS: For the patient which has been recorded shows the temperature patient noted as normal, respiratory rate 18, heart rate 95, blood pressure 90/50-102/62. The pulse oxygen saturation of the patient noted as 98% saturation of oxygen. HEENT: Showed no acute change. NECK: Supple. CARDIOVASCULAR: S1, S2 audible. LUNGS: Noted with scattered wheezing. No crackles. ABDOMEN: Soft, nontender. LABORATORY DATA: Sodium still noted decreased at 121. IMPRESSION: 1. The patient with resolving respiratory symptoms. The patient with exacerbation of chronic obstructive pulmonary disease gradually. 2. Hyponatremia, still treated for this patient and remains low with slow improvement. PLAN OF MANAGEMENT: Continuation of the current plan of therapy. The patient is in progress with conservative therapies. Usual care and other supportive plan of management and care. COTLON AGUILAR MD CM:PNTRANS [phone] COLTON URENA MD 06/10/17 2158 interface
--- NOTE | ~2017-06-07 | CON ---
[place], [place] REPORT OF CONSULTATION NAME: SCOTT KARIMI UNIT #: [id number] ROOM: 511 DOCTOR: HANNAH SAVAGE MD BIRTHDATE: [birth year] DOS: 06/10/2017 CHIEF COMPLAINT: "I have a lot of pain and depression." HISTORY OF PRESENT ILLNESS: This is a 62-year-old white female who was admitted due to complaints of significant back pain after a recent fall. The patient had previously been hospitalized at [facility] for similar issues on May 29 when she was diagnosed with hyponatremia and diastolic heart failure. Upon readmission now for these complaints, the patient was found to be hyponatremic again and she was admitted to rule out further organic factors. Of note, psychiatrically is the patient is prescribed Cymbalta 60 mg a day along with doxepin 25 mg at bedtime. The patient reports seeing Dr. Key for depression and pain. The pain is significant for her and oftentimes keeps her up. She has been on these medicines for sometime and is willing, however, to consider adjusting her medications. PAST MEDICAL HISTORY: Remarkable for COPD; major depression, recurrent; history of a brain aneurysm; hyponatremia and chronic pain issues. MENTAL STATUS: Currently, the patient is alert and oriented. Mood does seem to be somewhat depressed and despondent, although she interacts quite well and was somewhat spontaneous at times. There was no symptom suggestive of hypomania or greta. Likewise, there were no psychotic symptoms such as auditory or visual hallucinations, delusions or paranoia. For the most part, her memory is intact. DIAGNOSIS: Major depression, recurrent. PLAN: I have discussed with her discontinuation of her Cymbalta as that is more than likely one of the culprits behind her hyponatremia. Instead, I will go ahead and push the doxepin, up from 25 mg at bedtime to 75 mg at bedtime that should combat depression, aid sleep and also help with chronic pain. I will also order Zostrix high potency cream local application to the affected area t.i.d. to also attack the pain without using opiates or other analgesics. Should you require further intervention, please feel free to contact me at any time. HANNAH SAVAGE MD CM:CONSTR:REPORT OF CONSULTATION 1014 06/10/17 1026 interface
--- NOTE | ~2017-06-07 | PR ---
[place], [place] PROGRESS NOTE NAME: SCOTT KARIMI UNIT #: [id number] ROOM: 511 DOCTOR: LAUREN URENA MD,COLTON BIRTHDATE: [birth year] DOS: 06/07/2017 SUBJECTIVE: The patient was noted comfortable at this time, resting on the bed. She has not been noted any acute new complaints. The coughing has been improving significantly. Denies symptoms of chest pain. Acute shortness of breath was reported by the patient. OBJECTIVE: VITAL SIGNS: Normal temperature, respiratory rate 18, heart rate 72, blood pressure 114/70. The pulse oxygen saturation on room air 94% saturation. HEENT: Mild to moderate obese. Head was atraumatic. CARDIOVASCULAR: S1, S2 is audible. LUNGS: Noted without any wheeze or crackles. ABDOMEN: Noted moderate obesity, bowel sounds present. EXTREMITIES: Without any new changes. LABORATORY DATA: BMP today, sodium was 125, chloride of 91. IMPRESSION: 1. Syndrome of inappropriate antidiuretic hormone secretion with the patient's severe hyponatremia, gradual improvement. 2. Acute tracheobronchitis. 3. Chronic obstructive pulmonary disease. PLAN OF TREATMENT: Continuation of the bronchodilators, oxygen supplement, medical management of hyponatremia, antibiotic for acute bronchitis management. Supportive therapy, plan of management and care. COLTON AGUILAR MD CM:PNTRANS [phone] COLTON URENA MD 06/14/17 1824 interface
--- NOTE | ~2017-06-07 | PR ---
[place], [place] PROGRESS NOTE NAME: SCOTT KARIMI UNIT #: [id number] ROOM: 511 DOCTOR: AMI MCKEON,ELISEO Ramey BIRTHDATE: [birth year] DOS: ADDENDUM After reviewing the chart, labs and radiographs, I agree with the above plans as described. We will follow patient up clinically and adjust accordingly. ELISEO MUELLER MD CM:PNTRANS [phone] ELISEO MUELLER MD 06/14/17 0904 interface
--- NOTE | ~2017-06-07 | PR ---
[place], [place] PROGRESS NOTE NAME: SCOTT KARIMI UNIT #: [id number] ROOM: 511 DOCTOR: AMI MCKEON,ELISEO Ramey BIRTHDATE: [birth year] DOS: ADDENDUM I agree with the above plans as described. We will follow the patient up clinically and adjust accordingly. ELISEO MUELLER MD CM:PNTRANS [phone] ELISEO MUELLER MD 06/14/17 0904 interface
--- NOTE | ~2017-06-07 | PR ---
[place], [place] PROGRESS NOTE NAME: SCOTT KARIMI UNIT #: [id number] ROOM: 511 DOCTOR: LAUREN URENA MD,COLTON BIRTHDATE: [birth year] DOS: 06/12/2017 SUBJECTIVE: She has been noted comfortable at this time, remains on fluid restriction. The patient for SIADH management. The patient getting 1000 mL of fluid. The cough has been noted intermittent small amount of expectoration. The sputum sample was sent to the lab on 06/10/2016 with a showing normal corrine isolation. The final culture results were pending. OBJECTIVE: VITAL SIGNS: Showed normal temperature, respiratory rate 20, heart rate 82, blood pressure 108/72-103/63, pulse oxygen saturation on room air 98% saturation. HEENT: No acute change. NECK: Supple. CARDIOVASCULAR: S1, S2 audible. LUNGS: Noted without any . IMPRESSION: 1. The patient who has been noted with resolving exacerbation of chronic obstructive pulmonary disease, acute tracheobronchitis. 2. Syndrome of inappropriate antidiuretic hormone as well. PLAN OF TREATMENT: No changes in the management plan from the pulmonary standpoint, the patient will be continued on current plan of therapy, bronchodilators, oxygen supplementation. Continue medical management with hyponatremia and SIADH management as well. Monitor cultures of the sputum. COLTON AGUILAR MD CM:PNTRANS [phone] COLTON URENA MD 06/12/17 2219 interface
[~2017-06-07 12:23] MED LIST changes: +ALENDRONATE SOD70 M1 PO; +CYMBALTA60 MG PO; +DEPAKOTE ER500 MG PO; +DIAZEPAM10 M1 PO; +FUROSEMIDE40 MG PO; +Ipratropium Brom3 ML INH; +LEVOTHYROXINE50 MCG PO; +LISINOPRIL10 M1 PO; +OXYBUTYNIN5 MG PO; +Oscal,Oyster S500 MG PO; +PREDNISONE10 MG PO; +TESSALON PERLE100 MG PO; +TRAMADOL HCL50 MG PO
[2017-06-07 12:35] VITALS: BP 100/46
[2017-06-07 13:24] LABS: BASO # 0.1 10*3/uL (0.0-0.1); BASO % 0.7 % (0.0-1.0); EOS # 0.2 10*3/uL (0.0-0.4); EOS % 2.5 % (1.0-4.0); HEMATOCRIT 36.1 % (37.0-47.0); HEMOGLOBIN 12.4 g/dl (12.0-16.0); LYMPH # 1.3 10*3/uL (1.3-4.4); LYMPH % 18.6 % (27.0-41.0); MEAN CELL VOLUME 90.9 fl (81.0-99.0); MEAN CORPUSCULAR HGB 31.2 pg (27.0-31.0); MEAN CORPUSCULAR HGB CONC 34.3 g/dl (33.0-37.0); MEAN PLATELET VOLUME 8.1 fl (9.6-12.3); MONO # 0.9 10*3/uL (0.1-1.0); MONO % 12.8 % (3.0-9.0); NEUT # 4.4 10*3/uL (2.3-7.9); NEUT % 64.7 % (47.0-73.0); PLATELET COUNT AUTOMATED 176 10*3/uL (130-400); RED BLOOD COUNT 3.97 10*6/uL (4.10-5.10); WHITE BLOOD COUNT 6.8 10*3/uL (4.8-10.8)
[2017-06-07 13:33] LABS: ACT PARTIAL THROMBO TIME 23.2 SECONDS (20.8-31.5)
[2017-06-07 13:41] LABS: ALBUMIN 3.1 gm/dl (3.1-4.5); ALKALINE PHOSPHATASE 71 U/L (45-117); BUN 16 mg/dl (7-24); CHLORIDE 85 mmol/L (98-107); CREATININE 0.96 mg/dL (0.55-1.02); POTASSIUM 3.7 mmol/L (3.5-5.1); SGOT/AST 11 IU/L (3-35); SGPT/ALT 17 U/L (12-78); SODIUM 123 mmol/L (136-145); TOTAL PROTEIN 6.9 gm/dL (6.4-8.2)
[2017-06-07 13:43] LABS: TROPONIN I < 0.015 ng/ml (<0.045)
[2017-06-07 13:52] VITALS: BP 106/63
[2017-06-07 14:00] VITALS: BP 107/54
[2017-06-07 14:14] LABS: BILIRUBIN NEGATIVE (NEGATIVE); BLOOD TRACE-INTACT (NEGATIVE); CLARITY SL CLOUDY (CLEAR); COLOR YELLOW (YELLOW); GLUCOSE NEGATIVE (NEGATIVE); KETONE NEGATIVE (NEGATIVE); LEUKO ESTERASE NEGATIVE (NEGATIVE); NITRITE NEGATIVE (NEGATIVE)
[2017-06-07 14:24] LABS: BACTERIA 3+; EPITHELIAL CELLS 16-20
[2017-06-07 15:17] LABS: ABG BASE EXCESS 5.1 mmol/L (-2.0-2.0); ABG HCO3 28.4 mmol/l (22-26); ABG O2 SATURATION 96.6 % (95-97); ARTERIAL BLOOD GAS PCO2 37.4 mmHg (35-45); ARTERIAL BLOOD GAS PH 7.491 (7.35-7.45)
[2017-06-07] MEDS ORDERED: LEVOTHYROXINE75 MCG PO (15:26)
[2017-06-07] MEDS ORDERED: OYSTER SHELL 51 EACH PO (15:27)
[2017-06-07] MEDS ORDERED: NEURONTIN100 MG PO (15:27)
[2017-06-07] MEDS ORDERED: LISINOPRIL20 MG PO (15:30)
[2017-06-07] MEDS ORDERED: DIAZEPAM5 MG PO (15:32)
[2017-06-07] MEDS ORDERED: TESSALON PERLE100 MG PO (15:32)
[2017-06-07] MEDS ORDERED: TRAMADOL HCL50 MG PO (15:35)
[2017-06-07] MEDS ORDERED: INVEGA SUSTENN234 MG IM (15:36)
[2017-06-07] MEDS ORDERED: Kenalog 0.5% Oi15 GM T (15:38)
[2017-06-07] MEDS ORDERED: METOLAZONE2.5 MG PO (15:39)
[2017-06-07 16:00] VITALS: BP 112/65
[2017-06-07 20:00] VITALS: BP 104/58
[2017-06-08] VITALS: BP 90/48
[2017-06-08 06:50] LABS: BASO % 0.5 % (0.0-1.0); EOS # 0.2 10*3/uL (0.0-0.4); EOS % 2.6 % (1.0-4.0); HEMATOCRIT 34.7 % (37.0-47.0); HEMOGLOBIN 12.4 g/dl (12.0-16.0); MEAN CELL VOLUME 89.7 fl (81.0-99.0); MEAN CORPUSCULAR HGB CONC 35.7 g/dl (33.0-37.0); MEAN PLATELET VOLUME 8.7 fl (9.6-12.3); MONO # 1.1 10*3/uL (0.1-1.0); MONO % 14.8 % (3.0-9.0); NEUT # 4.2 10*3/uL (2.3-7.9); NEUT % 55.1 % (47.0-73.0); PLATELET COUNT AUTOMATED 190 10*3/uL (130-400); RED BLOOD COUNT 3.87 10*6/uL (4.10-5.10); WHITE BLOOD COUNT 7.7 10*3/uL (4.8-10.8)
[2017-06-08 07:09] LABS: ALBUMIN 2.9 gm/dl (3.1-4.5); BUN 17 mg/dl (7-24); CHLORIDE 82 mmol/L (98-107); POTASSIUM 4.1 mmol/L (3.5-5.1); SGOT/AST 10 IU/L (3-35); SGPT/ALT 16 U/L (12-78); SODIUM 120 mmol/L (136-145)
[2017-06-08 07:10] LABS: ALKALINE PHOSPHATASE 66 U/L (45-117); CREATININE 0.73 mg/dL (0.55-1.02); PHOSPHOROUS 3.3 mg/dL (2.5-4.9); TOTAL PROTEIN 6.9 gm/dL (6.4-8.2); VALPROIC ACID (DEPAKENE) 57.1 ug/ml (50-100)
[2017-06-08 08:00] VITALS: BP 102/54
[2017-06-08 12:00] VITALS: BP 90/50
[2017-06-08 16:00] VITALS: BP 85/57
[2017-06-08 20:00] VITALS: BP 120/62
[2017-06-09] VITALS: BP 118/69
[2017-06-09 07:27] LABS: ALBUMIN 2.9 gm/dl (3.1-4.5); BUN 22 mg/dl (7-24); CHLORIDE 78 mmol/L (98-107); CREATININE 0.87 mg/dL (0.55-1.02); POTASSIUM 4.4 mmol/L (3.5-5.1)
[2017-06-09 07:31] LABS: SODIUM 115 mmol/L (136-145)
[2017-06-09 08:00] VITALS: BP 150/50
[2017-06-09 12:00] VITALS: BP 105/67
[2017-06-09 12:21] LABS: BUN 25 mg/dl (7-24); CHLORIDE 76 mmol/L (98-107); CREATININE 0.86 mg/dL (0.55-1.02); POTASSIUM 4.4 mmol/L (3.5-5.1)
[2017-06-09 12:27] LABS: SODIUM 114 mmol/L (136-145)
[2017-06-09 16:00] VITALS: BP 77/47
[2017-06-09 20:00] VITALS: BP 90/50
[2017-06-10] VITALS: BP 102/62; BP 97/43
[2017-06-10 06:55] LABS: BASO % 0.5 % (0.0-1.0); EOS # 0.1 10*3/uL (0.0-0.4); EOS % 1.1 % (1.0-4.0); HEMATOCRIT 33.8 % (37.0-47.0); HEMOGLOBIN 12.2 g/dl (12.0-16.0); LYMPH # 2.3 10*3/uL (1.3-4.4); LYMPH % 25.6 % (27.0-41.0); MEAN CORPUSCULAR HGB 31.8 pg (27.0-31.0); MEAN CORPUSCULAR HGB CONC 36.1 g/dl (33.0-37.0); MEAN PLATELET VOLUME 8.2 fl (9.6-12.3); MONO # 1.2 10*3/uL (0.1-1.0); MONO % 13.7 % (3.0-9.0); NEUT # 5.1 10*3/uL (2.3-7.9); PLATELET COUNT AUTOMATED 200 10*3/uL (130-400); RED BLOOD COUNT 3.84 10*6/uL (4.10-5.10); RED CELL DISTRI WIDTH 12.9 % (0-14.5); WHITE BLOOD COUNT 8.9 10*3/uL (4.8-10.8)
[2017-06-10 07:11] LABS: ALBUMIN 3.1 gm/dl (3.1-4.5); BUN 29 mg/dl (7-24); CHLORIDE 79 mmol/L (98-107); CREATININE 0.74 mg/dL (0.55-1.02); FREE T4 0.87 ng/dl (0.76-1.46); PHOSPHOROUS 4.3 mg/dL (2.5-4.9); SODIUM 121 mmol/L (136-145)
[2017-06-10 08:00] VITALS: BP 90/50
[2017-06-10 12:00] VITALS: BP 91/52
[2017-06-10 16:00] VITALS: BP 86/46
[2017-06-10 18:13] VITALS: BP 94/56
[2017-06-11] VITALS: BP 103/58
[2017-06-11 07:12] LABS: ALBUMIN 2.9 gm/dl (3.1-4.5); BUN 27 mg/dl (7-24); CHLORIDE 83 mmol/L (98-107); CREATININE 0.72 mg/dL (0.55-1.02); PHOSPHOROUS 3.4 mg/dL (2.5-4.9); POTASSIUM 4.1 mmol/L (3.5-5.1); SODIUM 121 mmol/L (136-145)
[2017-06-11 08:00] VITALS: BP 112/70
[2017-06-11 12:00] VITALS: BP 100/55
[2017-06-11 16:00] VITALS: BP 89/61
[2017-06-11 20:00] VITALS: BP 88/57
[2017-06-11 21:30] VITALS: BP 90/60
[2017-06-12] VITALS: BP 94/62
[2017-06-12 03:55] VITALS: BP 103/63
[2017-06-12 06:51] LABS: ALBUMIN 2.9 gm/dl (3.1-4.5); BUN 22 mg/dl (7-24); CHLORIDE 84 mmol/L (98-107); CREATININE 0.73 mg/dL (0.55-1.02); POTASSIUM 3.4 mmol/L (3.5-5.1); SODIUM 124 mmol/L (136-145)
[2017-06-12 08:00] VITALS: BP 108/72
[2017-06-12 12:00] VITALS: BP 93/52
[2017-06-12 16:00] VITALS: BP 96/58
[2017-06-12 20:00] VITALS: BP 105/51
[2017-06-13] VITALS (7 sets, daily range): BP systolic 93–117; BP diastolic 42–77
[2017-06-13 06:42] LABS: BASO # 0.1 10*3/uL (0.0-0.1); BASO % 0.9 % (0.0-1.0); EOS # 0.2 10*3/uL (0.0-0.4); HEMATOCRIT 32.8 % (37.0-47.0); HEMOGLOBIN 11.8 g/dl (12.0-16.0); LYMPH # 1.6 10*3/uL (1.3-4.4); LYMPH % 28.8 % (27.0-41.0); MEAN CELL VOLUME 89.9 fl (81.0-99.0); MEAN CORPUSCULAR HGB 32.3 pg (27.0-31.0); MEAN PLATELET VOLUME 8.5 fl (9.6-12.3); MONO # 0.9 10*3/uL (0.1-1.0); MONO % 16.1 % (3.0-9.0); NEUT # 2.7 10*3/uL (2.3-7.9); NEUT % 49.3 % (47.0-73.0); PLATELET COUNT AUTOMATED 203 10*3/uL (130-400); RED BLOOD COUNT 3.65 10*6/uL (4.10-5.10); RED CELL DISTRI WIDTH 12.9 % (0-14.5); WHITE BLOOD COUNT 5.5 10*3/uL (4.8-10.8)
[2017-06-13 07:03] LABS: ALBUMIN 2.8 gm/dl (3.1-4.5); BUN 18 mg/dl (7-24); CHLORIDE 89 mmol/L (98-107); CREATININE 0.67 mg/dL (0.55-1.02); POTASSIUM 3.7 mmol/L (3.5-5.1); SODIUM 126 mmol/L (136-145)
[2017-06-14] VITALS: BP 104/56
[2017-06-14 06:24] LABS: ALBUMIN 2.8 gm/dl (3.1-4.5); BUN 18 mg/dl (7-24); CHLORIDE 91 mmol/L (98-107); CREATININE 0.62 mg/dL (0.55-1.02); PHOSPHOROUS 2.9 mg/dL (2.5-4.9); POTASSIUM 3.9 mmol/L (3.5-5.1); SODIUM 125 mmol/L (136-145)
[2017-06-14 08:00] VITALS: BP 114/70
[2017-06-14 12:00] VITALS: BP 92/53
[2017-06-14 16:00] VITALS: BP 118/57
[2017-06-14 20:00] VITALS: BP 109/60
[2017-06-15] VITALS: BP 108/78; BP 133/68
[2017-06-15 05:58] VITALS: BP 116/56
[2017-06-15 07:00] LABS: ALBUMIN 2.8 gm/dl (3.1-4.5); BUN 15 mg/dl (7-24); CHLORIDE 94 mmol/L (98-107); CREATININE 0.66 mg/dL (0.55-1.02); PHOSPHOROUS 2.8 mg/dL (2.5-4.9); POTASSIUM 3.8 mmol/L (3.5-5.1); SODIUM 128 mmol/L (136-145)
[2017-06-15 08:00] VITALS: BP 104/60
[2017-06-15 12:00] VITALS: BP 110/71
[2017-06-15] MEDS ORDERED: SODIUM CHLORIDE1 GM PO (14:37)
== END 2017-06-15 15:50 | disposition home health service (06) | DRG 871 ==
LOC: ED 12:23 → 5E 13:54 → EDHOLD 13:54 → 5E 14:11
PROVIDERS: Emergency Medicine; Hospitalist; Internal Medicine; Internal Medicine Hospice and Palliative Medicine; Internal Medicine Nephrology; Registered Nurse; Student in an Organized Health Care Education/Training Program
DX: A41.9 Sepsis, unspecified organism (principal); I50.33 Acute on chronic diastolic (congestive) heart failure; J96.01 Acute respiratory failure with hypoxia; E44.0 Moderate protein-calorie malnutrition; J18.9 Pneumonia, unspecified organism; E87.2 Acidosis; E22.2 Syndrome of inappropriate secretion of antidiuretic hormone; E87.8 Other disorders of electrolyte and fluid balance, not elsewhere classified; I11.0 Hypertensive heart disease with heart failure; E66.01 Morbid (severe) obesity due to excess calories; I95.9 Hypotension, unspecified; J44.1 Chronic obstructive pulmonary disease with (acute) exacerbation; J44.0 Chronic obstructive pulmonary disease with (acute) lower respiratory infection; F33.9 Major depressive disorder, recurrent, unspecified; J84.10 Pulmonary fibrosis, unspecified; R26.2 Difficulty in walking, not elsewhere classified; E83.51 Hypocalcemia; R65.20 Severe sepsis without septic shock; R73.9 Hyperglycemia, unspecified; M54.9 Dorsalgia, unspecified; R82.71 Bacteriuria; Z16.12 Extended spectrum beta lactamase (ESBL) resistance; F41.9 Anxiety disorder, unspecified; G89.29 Other chronic pain; G40.909 Epilepsy, unspecified, not intractable, without status epilepticus; G43.909 Migraine, unspecified, not intractable, without status migrainosus; E03.9 Hypothyroidism, unspecified; Z96.642 Presence of left artificial hip joint; F17.200 Nicotine dependence, unspecified, uncomplicated; D64.9 Anemia, unspecified; J20.9 Acute bronchitis, unspecified; B96.20 Unspecified Escherichia coli [E. coli] as the cause of diseases classified elsewhere; G47.33 Obstructive sleep apnea (adult) (pediatric); W18.39XA Other fall on same level, initial encounter; Y93.89 Activity, other specified; Y92.89 Other specified places as the place of occurrence of the external cause; Y99.8 Other external cause status; Z79.899 Other long term (current) drug therapy; Z86.718 Personal history of other venous thrombosis and embolism; Z90.49 Acquired absence of other specified parts of digestive tract; Z82.49 Family history of ischemic heart disease and other diseases of the circulatory system; Z83.3 Family history of diabetes mellitus; Z82.3 Family history of stroke; Z71.6 Tobacco abuse counseling; Z68.39 Body mass index [BMI] 39.0-39.9, adult

== ENCOUNTER 2017-08-10 14:33 | Inpatient (IN) | payer MEDICAID ==
[2017-08-10] VITALS (7 sets, daily range): BP systolic 110–128; BP diastolic 62–75
[~2017-08-10] VITALS: Ht 165.1 cm; Wt 116.6 kg
--- NOTE | ~2017-08-10 | PR ---
[place], [place] PROGRESS NOTE NAME: SCOTT KARIMI UNIT #: [id number] ROOM: 508 DOCTOR: BRIDGETTE DIEHL DO BIRTHDATE: [birth year] DOS: 08/13/2017 SUBJECTIVE. The patient states she is feeling well today. She notes her appetite is good. Denies nausea, vomiting. Denies orthopnea, PND or dyspnea. PHYSICAL EXAMINATION: VITAL SIGNS: Blood pressure is 121/57, pulse 65, respirations 18, temperature 98.5 degrees Fahrenheit. GENERAL APPEARANCE: A well-appearing female, awake, alert and oriented x 3. HEENT AND NECK: There is no JVD appreciated. LUNGS: Clear to auscultation and percussion. HEART: Regular rhythm without an S4, S3 gallop, rub, murmur or heave noted. ABDOMEN: Soft, positive bowel sounds x 4. EXTREMITIES: No clubbing, cyanosis, no edema noted. LABORATORY DATA: Today, WBC is 4.0, hemoglobin 13.5, hematocrit 39.4, platelets are 227,000. Cortrosyn stimulation test is pending. Renal panel was not obtained as of yet. ASSESSMENT AND PLAN: 1. Hyponatremia, improving today with a sodium of 127 last evening and felt to be most likely due to SIADH. Evaluation for her underlying adrenal insufficiency is in progress. a.m. labs are pending. She is being managed with fluid restrictions and sodium chloride tablets. 2. Hypokalemia, again a.m. labs are pending. 3. Question urinary tract infection. Repeat urine cultures are pending. Yesterday's urinalysis showed too numerous to count wbc's. It was a clean catch specimen. The patient await today's a.m. chemistries as well as results of Cortrosyn stimulation test. Further management pending above studies. BRIDGETTE DIEHL DO CM:PNTRANS [id number] BRIDGETTE DIEHL DO 08/13/17 1435 interface
--- NOTE | ~2017-08-10 | PR ---
[place], [place] PROGRESS NOTE NAME: SCOTT KARIMI UNIT #: [id number] ROOM: 508 DOCTOR: SHANITA DURANDBRIDGETTE BIRTHDATE: [birth year] DOS: 08/12/2017 SUBJECTIVE: The patient offers no complaints. She notes her appetite is good. Denies any nausea or vomiting. She does have a water picture at the bedside as well as 2 kavitha, but states she is compliant with her fluid restrictions. PHYSICAL EXAMINATION: VITAL SIGNS: Blood pressure is 112/57, pulse 71, respiration 20, temperature 97.3 degrees Fahrenheit. GENERAL APPEARANCE: A well-appearing female, awake, alert and oriented x 3. HEAD AND NECK: There is no JVD appreciated. LUNGS: Clear to auscultation and percussion. HEART: Regular, without S4, S3 gallop, rub, murmur or heave noted. ABDOMEN: Soft, positive bowel sounds x 4. EXTREMITIES: No clubbing, cyanosis or edema noted. Pulses +2 bilateral radial. LABORATORY DATA: Today, sodium is , potassium 3.4, chloride 84, CO2 29, BUN 6, creatinine 0.56, glucose 95, phosphorus 3.3, magnesium is 1.7, calcium is 8.1, albumin of 2.9, corrected calcium is 9.1. A.m. cortisol level today is 5.05. From 08/11, urine sodium is 45, urine potassium is 20.4, urine osmolality is 202. Urine culture from 08/10 is growing ESBL. Corresponding urinalysis had many epithelial cells. ASSESSMENT AND PLAN: 1. Hyponatremia, slow improvement in her symptoms. Her workup is suggestive of SIADH. I do note a low a.m. cortisol level. It does suggest that there could be an underlying adrenal insufficiency present. Volume status is satisfactory. Electrolytes with the exception of the low potassium is satisfactory. Her potassium has been supplemented already by the house staff despite my request that all electrolytes be handled through the Nephrology service. 2. Hypokalemia, may be more reflection of her poor oral intake. Previous admission, magnesium satisfactory and this has been supplemented. 3. Question urinary tract infection. However, the specimen was contaminated. Repeat urinalysis and culture is pending, but she has been started on empiric antibiotic therapy. RECOMMENDATIONS: A repeat BMP is pending. Await these results with further adjustment to therapy pending the above. She does remain on normal saline IV and if the sodium is unchanged, normal improved, would discontinue her saline, especially in light of the fact that she is eating well. Will increase of sodium chloride tablets to t.i.d. Given the question underlying adrenal insufficiency, we will order cortisol stimulation test. Again, I requested all electrolytes be corrected through the Nephrology service only. [place], [place] PROGRESS NOTE NAME: SCOTT KARIMI UNIT #: [id number] ROOM: 508 DOCTOR: BRIDGETTE DIEHL DO BIRTHDATE: [birth year] BRIDGETTE DIEHL DO CM:JN [phone] BRIDGETTE DIEHL DO 08/12/17 2336 interface
--- NOTE | ~2017-08-10 | CON ---
[place], [place] REPORT OF CONSULTATION NAME: SCOTT KARIMI UNIT #: [id number] ROOM: 508 DOCTOR: BRIDGETTE DIEHL DO BIRTHDATE: [birth year] DOS: 08/11/2017 REASON FOR CONSULTATION: Hyponatremia. HISTORY OF PRESENT ILLNESS: The patient is a 62-year-old female who has a prior history of COPD, depression, reported diastolic heart failure, goiter with thyroid disease being closely monitored by endocrinology, hypertension, migraine headaches, history of anxiety, bipolar disorder, a previous brain aneurysm for which she has undergone repair, details on this are not clear to me at present. She does have a history of hyponatremia for which she has been evaluated by our service in the past and most recently she has been seen in the office by Dr. Uribe for the above, at which time she was noted to have a sodium of 137, which has improved considerably from when she had been evaluated by our service earlier in the month of May, at which time she was thought to have SIADH in the setting of pneumonia with thiazide-type diuretics also felt to be contributing as well as untreated hypothyroidism. Reviewing past evaluations of this patient I note that she did have a cortisol checked when admitted to the hospital in 04/2017, it was a p.m. cortisol level; however, thought it was at a satisfactory level of 11.6. It was noted when she was recently seen by Dr. Uribe that she had 2+ edema, had recently been placed back on metolazone, reporting a dose of 2.5 mg b.i.d., was continued on her sodium chloride tablets 2 grams b.i.d. and was also using Lasix 40 mg every day. The patient herself is unaware of her medications, states her daughter administers all of her medications to her. She underwent routine lab work yesterday as a followup to her labs that were performed on 07/06/2017. Labs that were performed yesterday showed her sodium has once again dropped down to 117. Labs were also notable for potassium of 3.4, calcium was 8.3 that corrected to normal value based upon albumin of 3.2. She was thus referred to the hospital for further evaluation of the above. Had a urinalysis performed yesterday. It showed specific gravity 1.015 with too numerous to count wbc's, but with also many epithelial cells. She had urine chemistries performed with her outpatient labs on the that showed a sodium of 153, potassium of ____ and urine osmolality of 487. She had given a history of poor oral intake recently though without any additional GI complaints, was thought to be potentially volume depleted and was started on normal saline at 40 mL an hour. Her outpatient dosage of diuretics were not reordered on admission, appears sodium chloride tablets were reordered, but this did not occur until today. She was also given a liter bolus of saline yesterday. Apparently, she was somewhat weak and lethargic yesterday. Mentation apparently has improved considerably as of today. Fortunately, followup lab work from this morning shows her sodium was improved normally with a sodium now of 118, potassium is now increased to 3.2, which has been supplemented. Magnesium was noted to be low at 1.4. It does not appear that this has been supplemented as of yet. She has been afebrile and hemodynamically stable, unfortunately, appetite remains suboptimal. She denies use of NSAIDs. Again, is otherwise not familiar with her medications. Denies orthopnea, PND, dyspnea, nausea, vomiting, diarrhea, fever, chills, rigors, diaphoresis or difficulties voiding. She notes edema, which is chronic, has considerably improved. PAST MEDICAL HISTORY: As above. [place], [place] REPORT OF CONSULTATION NAME: SCOTT KARIMI UNIT #: [id number] ROOM: 508 DOCTOR: BRIDGETTE DIEHL DO BIRTHDATE: [birth year] ALLERGIES: She is unaware of allergies. CURRENT MEDICATIONS: Sinequan 25 mg at bedtime, trazodone 300 mg at bedtime, diltiazem 30 mg q. 6 hours, sodium chloride tablets 1 gram b.i.d., vitamin D 2000 IU every day, triamcinolone cream topically b.i.d., primidone 50 mg b.i.d., oxybutynin 5 mg b.i.d., Trileptal 400 mg q. 12 hours, levothyroxine 25 mcg every day, gabapentin 100 mg q.i.d., Pepcid 20 mg daily, Lovenox 40 mg subcutaneously every day, Depakote 500 mg b.i.d., calcium carbonate 500 mg b.i.d., Colace 100 mg b.i.d. p.r.n., Rocephin 1 gram IV every day and normal saline IV at 40 mL an hour, now discontinued. SOCIAL HISTORY: She resides at home. FAMILY HISTORY: Noncontributory. REVIEW OF SYSTEMS: Please see HPI. A full 10-point review of system was performed and was unremarkable except as noted in HPI. PHYSICAL EXAMINATION: VITAL SIGNS: Blood pressure is 120/70, pulse 70, respiration 14, temperature is 98 degrees Fahrenheit. GENERAL APPEARANCE: An obese female, awake, oriented x 3, currently in no apparent distress, was ____. HEENT: Conjunctivae pink and moist. Oral mucosa pink and moist. NECK: There is no carotid bruit, thyromegaly, adenopathy or JVD appreciated. LUNGS: Clear to auscultation and percussion. HEART: Regular, without S4, S3 gallop, rub, murmur or heave. ABDOMEN: Soft, positive bowel sounds x 4, nontender, without CVA tenderness. No rebound, guarding, or rigidity noted. No flank bruits. NEUROLOGIC: The patient was anxious, grossly nonfocal. EXTREMITIES: No clubbing, cyanosis or edema. Pulses +2 ____. SKIN: Dry without rash, ulcers, lesions, or petechiae appreciated. LABORATORY DATA: From today, WBC is 4.5, hemoglobin 12.6, hematocrit 35.2, platelets [id number]. Sodium is 119, potassium 3.2, chloride of 83, CO2 25, BUN of 5, creatinine 0.47, glucose of 90, albumin is 2.8, calcium 7.5. Corrected calcium was 9.5, phosphorus 3.7, magnesium 1.4. ALT is 11, AST is 11, alkaline phosphatase is 59, total protein is 6.6, total bilirubin 0.4 and ____ 0.01. IMPRESSION: 1. Hyponatremia, recurrent in nature, current etiology is not clear but this may be more related to volume depletion given the lack of edema and recent addition of metolazone, comes in with poor oral intake. However, she has been consistent with overall fluid intake, but then she is only ingesting 1000 mL per day. Her urine chemistries from admission, which seems to suggest that may be fluid excess contributing to her hyponatremia. Given the urine to serum creatinine ratio greater than 1; however, and as such fluid restriction seemed to be unlikely to help; however, these may have been affected by her having received a bolus of saline yesterday as well as having been on diuretics, all of [place], [place] REPORT OF CONSULTATION NAME: SCOTT KARIMI UNIT #: [id number] ROOM: 508 DOCTOR: BRIDGETTE DIEHL DO BIRTHDATE: [birth year] which as noted have since been held. 2. Hypokalemia, presumably as a consequence of poor oral intake, use of diuretics as well as hypomagnesemia. This has been supplemented. 3. Hypomagnesemia, mild in nature. RECOMMENDATIONS: We will recheck chemistries now to reassess her sodium balance in response to current therapy. We will recheck urine chemistries as well now and we will adjust therapy accordingly. We requested all laboratory corrections be done through the Nephrology service only. Thank you for allowing us to participate in the care of this patient. BRIDGETTE DIEHL DO CM:LEONRO:REPORT OF CONSULTATION 1210 08/12/17 6066 interface
[~2017-08-10 14:33] MED LIST changes: -CYCLOBENZAPRINE5 M3 PO; -DULCOLAX STOOL100 M1 PO; -HYDROCODONE-AC1 EAC1 PO
[2017-08-10] MEDS ORDERED: HYDROCODONE-AC1 EAC1 PO (14:50)
[2017-08-10 16:47] LABS: BILIRUBIN NEGATIVE (NEGATIVE); BLOOD 2+ (NEGATIVE); CLARITY CLOUDY (CLEAR); COLOR YELLOW (YELLOW); GLUCOSE NEGATIVE (NEGATIVE); KETONE NEGATIVE (NEGATIVE); LEUKO ESTERASE 3+ (NEGATIVE); NITRITE POSITIVE (NEGATIVE); PH 6.5 (5.0-9.0); SPECIFIC GRAVITY 1.015 (1.005-1.030); UROBILINOGEN 0.2 E.U./dl (0.2-1.0)
[2017-08-10 17:30] LABS: BACTERIA 4+; WBC TNTC wbc/hpf (0-5)
[2017-08-11] VITALS: BP 104/57
[2017-08-11 05:55] LABS: BASO % 0.7 % (0.0-1.0); EOS # 0.2 10*3/uL (0.0-0.4); EOS % 4.3 % (1.0-4.0); HEMATOCRIT 35.2 % (37.0-47.0); HEMOGLOBIN 12.6 g/dl (12.0-16.0); LYMPH # 1.9 10*3/uL (1.3-4.4); LYMPH % 42.4 % (27.0-41.0); MEAN CELL VOLUME 85.2 fl (81.0-99.0); MEAN CORPUSCULAR HGB 30.5 pg (27.0-31.0); MEAN CORPUSCULAR HGB CONC 35.8 g/dl (33.0-37.0); MEAN PLATELET VOLUME 8.7 fl (9.6-12.3); MONO # 0.7 10*3/uL (0.1-1.0); MONO % 14.6 % (3.0-9.0); NEUT # 1.7 10*3/uL (2.3-7.9); NEUT % 37.3 % (47.0-73.0); PLATELET COUNT AUTOMATED 219 10*3/uL (130-400); RED BLOOD COUNT 4.13 10*6/uL (4.10-5.10); RED CELL DISTRI WIDTH 12.3 % (0-14.5); WHITE BLOOD COUNT 4.5 10*3/uL (4.8-10.8)
[2017-08-11 06:02] LABS: ALBUMIN 2.8 gm/dl (3.1-4.5); BUN 5 mg/dl (7-24); CHLORIDE 83 mmol/L (98-107); CHOLESTEROL 135 mg/dL (<200); CREATININE 0.47 mg/dL (0.55-1.02); PHOSPHOROUS 3.7 mg/dL (2.5-4.9); POTASSIUM 3.2 mmol/L (3.5-5.1); SGOT/AST 11 IU/L (3-35); SGPT/ALT 11 U/L (12-78); TOTAL PROTEIN 6.6 gm/dL (6.4-8.2)
[2017-08-11 06:09] LABS: ALKALINE PHOSPHATASE 59 U/L (45-117); HDL CHOLESTEROL 41 mg/dl (40-60); LDL CHOLESTEROL 73 mg/dL (9-159); THYROID STIM HORMONE (HS) 0.008 uIU/ml (0.358-4.75); TRIGLYCERIDES 105 mg/dl (<150); VLDL CHOLESTEROL 21 mg/dL (6-40)
[2017-08-11 06:36] LABS: SODIUM 118 mmol/L (136-145)
[2017-08-11] MEDS ORDERED: DULCOLAX STOOL100 M1 PO (06:48)
[2017-08-11] MEDS ORDERED: METOLAZONE2.5 MG PO (06:50)
[2017-08-11 08:00] VITALS: BP 120/70
[2017-08-11 09:37] LABS: VITAMIN D, 25-HYDROXY 18.8 ng/mL (30-100)
[2017-08-11 12:00] VITALS: BP 113/53
[2017-08-11 12:50] LABS: BUN 6 mg/dl (7-24); CHLORIDE 80 mmol/L (98-107); CREATININE 0.61 mg/dL (0.55-1.02); POTASSIUM 3.5 mmol/L (3.5-5.1); SODIUM 121 mmol/L (136-145)
[2017-08-11 16:00] VITALS: BP 116/70
[2017-08-11 18:20] LABS: BUN 6 mg/dl (7-24); CHLORIDE 84 mmol/L (98-107); CREATININE 0.68 mg/dL (0.55-1.02); POTASSIUM 3.8 mmol/L (3.5-5.1); SODIUM 121 mmol/L (136-145)
[2017-08-11] MEDS ORDERED: CYCLOBENZAPRINE5 M3 PO (19:45)
[2017-08-11 20:00] VITALS: BP 114/66
[2017-08-12] VITALS: BP 122/63
[2017-08-12 06:04] LABS: ALBUMIN 2.9 gm/dl (3.1-4.5); BUN 6 mg/dl (7-24); CHLORIDE 84 mmol/L (98-107); CREATININE 0.56 mg/dL (0.55-1.02); PHOSPHOROUS 3.3 mg/dL (2.5-4.9); POTASSIUM 3.4 mmol/L (3.5-5.1); SODIUM 123 mmol/L (136-145)
[2017-08-12 08:00] VITALS: BP 108/66
[2017-08-12 12:00] VITALS: BP 112/57
[2017-08-12 13:43] LABS: BUN 4 mg/dl (7-24); CHLORIDE 89 mmol/L (98-107); CREATININE 0.69 mg/dL (0.55-1.02); POTASSIUM 3.4 mmol/L (3.5-5.1); SODIUM 125 mmol/L (136-145)
[2017-08-12 16:00] VITALS: BP 109/56
[2017-08-12 17:42] LABS: BILIRUBIN NEGATIVE (NEGATIVE); BLOOD 2+ (NEGATIVE); CLARITY CLOUDY (CLEAR); COLOR YELLOW (YELLOW); GLUCOSE NEGATIVE (NEGATIVE); KETONE NEGATIVE (NEGATIVE); PH 6.5 (5.0-9.0)
[2017-08-12 17:43] LABS: LEUKO ESTERASE 3+ (NEGATIVE); NITRITE POSITIVE (NEGATIVE); UROBILINOGEN 0.2 E.U./dl (0.2-1.0); WBC TNTC wbc/hpf (0-5)
[2017-08-12 20:00] VITALS: BP 102/49
[2017-08-12 20:45] LABS: BUN 7 mg/dl (7-24); CHLORIDE 93 mmol/L (98-107); CREATININE 0.71 mg/dL (0.55-1.02); SODIUM 127 mmol/L (136-145)
[2017-08-12 20:46] LABS: POTASSIUM 4.4 mmol/L (3.5-5.1)
[2017-08-13] VITALS: BP 116/56
[2017-08-13 08:00] VITALS: BP 121/57
[2017-08-13 10:15] LABS: EOS # 0.1 10*3/uL (0.0-0.4); EOS % 2.5 % (1.0-4.0); HEMATOCRIT 39.4 % (37.0-47.0); HEMOGLOBIN 13.5 g/dl (12.0-16.0); LYMPH # 1.6 10*3/uL (1.3-4.4); LYMPH % 39.1 % (27.0-41.0); MEAN CELL VOLUME 90.2 fl (81.0-99.0); MEAN CORPUSCULAR HGB 30.9 pg (27.0-31.0); MEAN CORPUSCULAR HGB CONC 34.3 g/dl (33.0-37.0); MEAN PLATELET VOLUME 8.7 fl (9.6-12.3); MONO # 0.5 10*3/uL (0.1-1.0); MONO % 13.6 % (3.0-9.0); NEUT # 1.7 10*3/uL (2.3-7.9); PLATELET COUNT AUTOMATED 227 10*3/uL (130-400); RED BLOOD COUNT 4.37 10*6/uL (4.10-5.10); RED CELL DISTRI WIDTH 12.5 % (0-14.5)
[2017-08-13 11:25] LABS: ALBUMIN 2.9 gm/dl (3.1-4.5); BUN 8 mg/dl (7-24); CHLORIDE 96 mmol/L (98-107); CREATININE 0.66 mg/dL (0.55-1.02); PHOSPHOROUS 3.1 mg/dL (2.5-4.9); POTASSIUM 4.1 mmol/L (3.5-5.1); SODIUM 129 mmol/L (136-145)
[2017-08-13 12:00] VITALS: BP 122/64
[2017-08-13] MEDS ORDERED: SODIUM CHLORIDE1 GM PO (13:25)
[2017-08-14 19:05] LABS: CORTISOL #2 23.8 ug/dL (Not Estab.); CORTISOL #3 26.1 ug/dL (Not Estab.); CORTISOL BASELINE 18.7 ug/dL (.)
== END 2017-08-13 15:30 | disposition home or self-care (01) | DRG 643 ==
LOC: ED 14:33 → EDHOLD 16:09 → 5E 16:09
PROVIDERS: Internal Medicine; Internal Medicine Nephrology; Nurse Practitioner Family
DX: E22.2 Syndrome of inappropriate secretion of antidiuretic hormone (principal); G93.41 Metabolic encephalopathy; I50.30 Unspecified diastolic (congestive) heart failure; I11.0 Hypertensive heart disease with heart failure; E44.1 Mild protein-calorie malnutrition; E27.40 Unspecified adrenocortical insufficiency; E87.8 Other disorders of electrolyte and fluid balance, not elsewhere classified; N39.0 Urinary tract infection, site not specified; Z68.41 Body mass index [BMI] 40.0-44.9, adult; J84.10 Pulmonary fibrosis, unspecified; E66.01 Morbid (severe) obesity due to excess calories; E87.6 Hypokalemia; E03.9 Hypothyroidism, unspecified; E04.9 Nontoxic goiter, unspecified; J44.9 Chronic obstructive pulmonary disease, unspecified; I10 Essential (primary) hypertension; F31.9 Bipolar disorder, unspecified; F41.9 Anxiety disorder, unspecified; D64.9 Anemia, unspecified; B96.20 Unspecified Escherichia coli [E. coli] as the cause of diseases classified elsewhere; Z16.30 Resistance to unspecified antimicrobial drugs; Z96.642 Presence of left artificial hip joint; G40.909 Epilepsy, unspecified, not intractable, without status epilepticus; E83.42 Hypomagnesemia; R82.71 Bacteriuria; B96.1 Klebsiella pneumoniae [K. pneumoniae] as the cause of diseases classified elsewhere; G43.909 Migraine, unspecified, not intractable, without status migrainosus; Z90.49 Acquired absence of other specified parts of digestive tract; Z90.89 Acquired absence of other organs; Z82.49 Family history of ischemic heart disease and other diseases of the circulatory system; Z79.899 Other long term (current) drug therapy; Z87.01 Personal history of pneumonia (recurrent); Z83.3 Family history of diabetes mellitus; Z72.0 Tobacco use; Z91.81 History of falling; Z86.718 Personal history of other venous thrombosis and embolism; Z82.3 Family history of stroke

== ENCOUNTER → 2017-08-10 | Outpatient (CLI) | payer MEDICAID ==
[~2017-08-10] MED LIST changes: +CYCLOBENZAPRINE5 M3 PO; +DULCOLAX STOOL100 M1 PO; +HYDROCODONE-AC1 EAC1 PO; +INVEGA SUSTENN234 MG IM; +Kenalog 0.5% Oi15 GM T; +LEVOTHYROXINE75 MCG PO; +METOLAZONE2.5 MG PO; +NEURONTIN100 MG PO; +OYSTER SHELL 51 EACH PO; +SODIUM CHLORIDE1 GM PO; +SYNTHROID,LEVO88 MCG PO; -TRILEPTAL PO; +TRILEPTAL300 MG PO
[2017-08-10 12:59] LABS: ALBUMIN 3.2 gm/dl (3.1-4.5); BUN 5 mg/dl (7-24); CHLORIDE 78 mmol/L (98-107); POTASSIUM 3.4 mmol/L (3.5-5.1)
[2017-08-10 13:01] LABS: CREATININE 0.62 mg/dL (0.55-1.02); PHOSPHOROUS 3.3 mg/dL (2.5-4.9)
[2017-08-10 13:09] LABS: FREE T4 1.09 ng/dl (0.76-1.46); THYROID STIM HORMONE (HS) 0.013 uIU/ml (0.358-4.75)
[2017-08-10 13:16] LABS: SODIUM 117 mmol/L (136-145)
== END | disposition home or self-care (01) ==
LOC: LAB 11:59
PROVIDERS: Internal Medicine Endocrinology, Diabetes & Metabolism; Internal Medicine Nephrology
DX: E03.8 Other specified hypothyroidism (principal); E04.2 Nontoxic multinodular goiter; E87.1 Hypo-osmolality and hyponatremia

== ENCOUNTER 2017-09-01 12:29 | Inpatient (IN) | payer MEDICAID ==
[~2017-09-01] VITALS: Ht 165.1 cm; Wt 67.6 kg
[~2017-09-01 12:29] MED LIST changes: +CYCLOBENZAPRINE5 M3 PO; +DULCOLAX STOOL100 M1 PO; +HYDROCODONE-AC1 EAC1 PO
[2017-09-01 12:31] VITALS: BP 121/79
[2017-09-01 12:57] LABS: BASO % 0.9 % (0.0-1.0); EOS # 0.1 10*3/uL (0.0-0.4); EOS % 2.3 % (1.0-4.0); HEMATOCRIT 39.7 % (37.0-47.0); HEMOGLOBIN 14.3 g/dl (12.0-16.0); LYMPH # 1.6 10*3/uL (1.3-4.4); MEAN CELL VOLUME 86.1 fl (81.0-99.0); MEAN PLATELET VOLUME 8.9 fl (9.6-12.3); MONO # 0.6 10*3/uL (0.1-1.0); MONO % 13.7 % (3.0-9.0); NEUT % 46.9 % (47.0-73.0); PLATELET COUNT AUTOMATED 199 10*3/uL (130-400); RED BLOOD COUNT 4.61 10*6/uL (4.10-5.10); WHITE BLOOD COUNT 4.3 10*3/uL (4.8-10.8)
[2017-09-01 13:05] LABS: ACT PARTIAL THROMBO TIME 25.1 SECONDS (20.8-31.5)
[2017-09-01 13:14] LABS: CHLORIDE 80 mmol/L (98-107); POTASSIUM 2.8 mmol/L (3.5-5.1); SODIUM 123 mmol/L (136-145)
[2017-09-01 13:21] LABS: BUN 7 mg/dl (7-24); CREATININE 0.75 mg/dL (0.55-1.02)
[2017-09-01 13:30] VITALS: BP 103/67
[2017-09-01 13:34] LABS: VALPROIC ACID (DEPAKENE) 99.2 ug/ml (50-100)
[2017-09-01 13:45] VITALS: BP 111/72
[2017-09-01] MEDS ORDERED: NICODERM CQ1 EAC2 TD (14:03)
[2017-09-01] MEDS ORDERED: OYSTER SHELL 51 EACH PO (14:05)
[2017-09-01] MEDS ORDERED: GLYCOLAX119 GM PO (14:08)
[2017-09-01 14:34] LABS: BILIRUBIN NEGATIVE (NEGATIVE); BLOOD 1+ (NEGATIVE); CLARITY SL CLOUDY (CLEAR); COLOR YELLOW (YELLOW); GLUCOSE NEGATIVE (NEGATIVE); KETONE NEGATIVE (NEGATIVE); LEUKO ESTERASE 3+ (NEGATIVE); NITRITE NEGATIVE (NEGATIVE); PH 6.5 (5.0-9.0)
[2017-09-01 14:46] LABS: BACTERIA 3+; EPITHELIAL CELLS 0-2; WBC 41-50 wbc/hpf (0-5)
[2017-09-01 16:00] VITALS: BP 116/68
[2017-09-01] MEDS ORDERED: NORCO 5-325 TA1 EACH PO (17:05)
[2017-09-01 20:00] VITALS: BP 112/62
[2017-09-02] VITALS: BP 119/72
[2017-09-02 06:04] LABS: ALKALINE PHOSPHATASE 64 U/L (45-117); BUN 9 mg/dl (7-24); CHLORIDE 85 mmol/L (98-107); CHOLESTEROL 143 mg/dL (<200); CREATININE 0.62 mg/dL (0.55-1.02); HDL CHOLESTEROL 53 mg/dl (40-60); LDL CHOLESTEROL 75 mg/dL (9-159); PHOSPHOROUS 3.1 mg/dL (2.5-4.9); POTASSIUM 3.3 mmol/L (3.5-5.1); SGOT/AST 11 IU/L (3-35); SGPT/ALT 10 U/L (12-78); SODIUM 126 mmol/L (136-145); TOTAL PROTEIN 6.7 gm/dL (6.4-8.2); TRIGLYCERIDES 77 mg/dl (<150); VLDL CHOLESTEROL 15 mg/dL (6-40)
[2017-09-02 06:09] LABS: FREE T4 0.93 ng/dl (0.76-1.46); THYROID STIM HORMONE (HS) 0.021 uIU/ml (0.358-4.75)
[2017-09-02 06:14] LABS: BASO % 0.9 % (0.0-1.0); EOS # 0.1 10*3/uL (0.0-0.4); EOS % 3.2 % (1.0-4.0); HEMATOCRIT 38.5 % (37.0-47.0); HEMOGLOBIN 13.1 g/dl (12.0-16.0); LYMPH # 2.1 10*3/uL (1.3-4.4); LYMPH % 46.7 % (27.0-41.0); MEAN CELL VOLUME 88.3 fl (81.0-99.0); MEAN PLATELET VOLUME 9.3 fl (9.6-12.3); MONO # 0.6 10*3/uL (0.1-1.0); MONO % 14.5 % (3.0-9.0); NEUT # 1.5 10*3/uL (2.3-7.9); NEUT % 34.2 % (47.0-73.0); PLATELET COUNT AUTOMATED 196 10*3/uL (130-400); RED BLOOD COUNT 4.36 10*6/uL (4.10-5.10); RED CELL DISTRI WIDTH 12.2 % (0-14.5); WHITE BLOOD COUNT 4.4 10*3/uL (4.8-10.8)
[2017-09-02 07:25] LABS: VITAMIN D, 25-HYDROXY 27.1 ng/mL (30-100)
[2017-09-02 08:00] VITALS: BP 112/63
[2017-09-02 12:00] VITALS: BP 117/74
[2017-09-02 16:00] VITALS: BP 111/73
[2017-09-02 19:02] LABS: BUN 10 mg/dl (7-24); CHLORIDE 85 mmol/L (98-107); CREATININE 0.75 mg/dL (0.55-1.02); POTASSIUM 3.7 mmol/L (3.5-5.1); SODIUM 125 mmol/L (136-145)
[2017-09-02 20:00] VITALS: BP 102/63
[2017-09-03] VITALS: BP 122/69
[2017-09-03 08:00] VITALS: BP 116/73
[2017-09-03 08:35] LABS: ALBUMIN 3.3 gm/dl (3.1-4.5); BUN 13 mg/dl (7-24); CHLORIDE 89 mmol/L (98-107); CREATININE 0.81 mg/dL (0.55-1.02); POTASSIUM 3.8 mmol/L (3.5-5.1); SODIUM 128 mmol/L (136-145)
[2017-09-03 08:36] LABS: PHOSPHOROUS 3.7 mg/dL (2.5-4.9)
[2017-09-03 12:00] VITALS: BP 119/80
[2017-09-03] MEDS ORDERED: SODIUM CHLORIDE1 GM PO (15:00)
[2017-09-03] MEDS ORDERED: FUROSEMIDE40 MG PO (15:01)
[2017-09-03] MEDS ORDERED: KLOR-CON M2020 ME1 PO (15:07)
== END 2017-09-03 15:30 | disposition home or self-care (01) | DRG 641 ==
LOC: ED 12:29 → EDHOLD 12:50 → 5E 12:50
PROVIDERS: Emergency Medicine; Internal Medicine; Registered Nurse
DX: E87.1 Hypo-osmolality and hyponatremia (principal); I50.32 Chronic diastolic (congestive) heart failure; E66.01 Morbid (severe) obesity due to excess calories; J84.10 Pulmonary fibrosis, unspecified; I11.0 Hypertensive heart disease with heart failure; J44.9 Chronic obstructive pulmonary disease, unspecified; E87.8 Other disorders of electrolyte and fluid balance, not elsewhere classified; E87.6 Hypokalemia; F41.9 Anxiety disorder, unspecified; G40.909 Epilepsy, unspecified, not intractable, without status epilepticus; Z96.642 Presence of left artificial hip joint; G43.909 Migraine, unspecified, not intractable, without status migrainosus; G89.29 Other chronic pain; E03.9 Hypothyroidism, unspecified; R32 Unspecified urinary incontinence; F31.9 Bipolar disorder, unspecified; R82.71 Bacteriuria; Z79.899 Other long term (current) drug therapy; Z86.718 Personal history of other venous thrombosis and embolism; Z72.0 Tobacco use; Z90.49 Acquired absence of other specified parts of digestive tract; Z82.49 Family history of ischemic heart disease and other diseases of the circulatory system; Z83.3 Family history of diabetes mellitus; Z82.3 Family history of stroke; Z68.24 Body mass index [BMI] 24.0-24.9, adult

== ENCOUNTER → 2017-09-13 | Outpatient (CLI) | payer MEDICAID ==
[~2017-09-13] MED LIST changes: +GLYCOLAX119 GM PO; +KLOR-CON M2020 ME1 PO; +NICODERM CQ1 EAC2 TD; +NORCO 5-325 TA1 EACH PO
[2017-09-13 12:46] LABS: ALBUMIN 3.4 gm/dl (3.1-4.5); BUN 10 mg/dl (7-24); CHLORIDE 94 mmol/L (98-107); CREATININE 0.62 mg/dL (0.55-1.02); PHOSPHOROUS 3.7 mg/dL (2.5-4.9); POTASSIUM 4.8 mmol/L (3.5-5.1); SODIUM 130 mmol/L (136-145)
[2017-09-13 12:51] LABS: FREE T4 1.06 ng/dl (0.76-1.46)
[2017-09-13 12:57] LABS: THYROID STIM HORMONE (HS) 0.006 uIU/ml (0.358-4.75)
== END | disposition home or self-care (01) ==
LOC: LAB 11:53
PROVIDERS: Internal Medicine Endocrinology, Diabetes & Metabolism; Internal Medicine Nephrology
DX: E03.9 Hypothyroidism, unspecified (principal); E04.2 Nontoxic multinodular goiter; E87.1 Hypo-osmolality and hyponatremia

== ENCOUNTER → 2017-11-03 | Outpatient (CLI) | payer MEDICAID ==
[2017-11-03 16:11] LABS: HEMATOCRIT 40.2 % (37.0-47.0); HEMOGLOBIN 13.7 g/dl (12.0-16.0); MEAN CELL VOLUME 90.5 fl (81.0-99.0); MEAN CORPUSCULAR HGB 30.9 pg (27.0-31.0); MEAN CORPUSCULAR HGB CONC 34.1 g/dl (33.0-37.0); MEAN PLATELET VOLUME 8.8 fl (9.6-12.3); RED BLOOD COUNT 4.44 10*6/uL (4.10-5.10); RED CELL DISTRI WIDTH 13.7 % (0-14.5); WHITE BLOOD COUNT 5.3 10*3/uL (4.8-10.8)
[2017-11-03 16:27] LABS: ALBUMIN 3.2 gm/dl (3.1-4.5); ALKALINE PHOSPHATASE 73 U/L (45-117); BUN 12 mg/dl (7-24); CHLORIDE 94 mmol/L (98-107); CHOLESTEROL 142 mg/dL (<200); CREATININE 0.77 mg/dL (0.55-1.02); HDL CHOLESTEROL 48 mg/dl (40-60); LDL CHOLESTEROL 69 mg/dL (9-159); SGOT/AST 9 IU/L (3-35); SGPT/ALT 11 U/L (12-78); SODIUM 129 mmol/L (136-145); TOTAL PROTEIN 7.4 gm/dL (6.4-8.2); TRIGLYCERIDES 124 mg/dl (<150); VLDL CHOLESTEROL 25 mg/dL (6-40)
[2017-11-03 16:29] LABS: FREE T4 0.93 ng/dl (0.76-1.46)
[2017-11-03 16:33] LABS: THYROID STIM HORMONE (HS) 0.008 uIU/ml (0.358-4.75)
[2017-11-04 07:04] LABS: FREE T3 010389 2.8 pg/mL (2.0-4.4)
[2017-11-04 09:05] LABS: RHEUMATOID ARTHRITIS FACTOR 10.2 IU/mL (0.0-13.9)
== END | disposition home or self-care (01) ==
LOC: LAB 15:55
PROVIDERS: Family Medicine
DX: E78.00 Pure hypercholesterolemia, unspecified (principal); E55.9 Vitamin D deficiency, unspecified; E03.9 Hypothyroidism, unspecified; M19.90 Unspecified osteoarthritis, unspecified site

== ENCOUNTER → 2017-12-13 | Outpatient (CLI) | payer MEDICAID ==
[2017-12-13 16:39] LABS: ALBUMIN 3.4 gm/dl (3.1-4.5); BUN 15 mg/dl (7-24); CHLORIDE 98 mmol/L (98-107); CREATININE 0.82 mg/dL (0.55-1.02); POTASSIUM 4.4 mmol/L (3.5-5.1); SODIUM 133 mmol/L (136-145); URIC ACID 5.6 mg/dL (2.6-6.0)
[2017-12-13 17:02] LABS: FREE T4 1.16 ng/dl (0.76-1.46)
== END | disposition home or self-care (01) ==
LOC: LAB 15:29
PROVIDERS: Internal Medicine Nephrology
DX: E87.1 Hypo-osmolality and hyponatremia (principal)

== ENCOUNTER → 2018-01-07 | Outpatient (CLI) | payer MEDICAID | END | disposition home or self-care (01) | LOC: RAD 15:30 | DX: J44.9 Chronic obstructive pulmonary disease, unspecified (principal); I50.9 Heart failure, unspecified ==

== ENCOUNTER → 2018-03-11 | Outpatient (CLI) | payer MEDICAID ==
[2018-03-11 13:43] LABS: ALKALINE PHOSPHATASE 72 U/L (45-117); BUN 11 mg/dl (7-24); CHLORIDE 99 mmol/L (98-107); CHOLESTEROL 128 mg/dL (<200); FREE T4 1.22 ng/dl (0.76-1.46); HDL CHOLESTEROL 39 mg/dl (40-60); LDL CHOLESTEROL 66 mg/dL (9-159); POTASSIUM 3.8 mmol/L (3.5-5.1); SGOT/AST 6 IU/L (3-35); SGPT/ALT 10 U/L (12-78); SODIUM 133 mmol/L (136-145); TOTAL PROTEIN 7.6 gm/dL (6.4-8.2); TRIGLYCERIDES 115 mg/dl (<150); VLDL CHOLESTEROL 23 mg/dL (6-40)
[2018-03-11 13:45] LABS: HEMATOCRIT 42.6 % (37.0-47.0); HEMOGLOBIN 13.9 g/dl (12.0-16.0); MEAN CELL VOLUME 91.6 fl (81.0-99.0); MEAN CORPUSCULAR HGB 29.9 pg (27.0-31.0); MEAN CORPUSCULAR HGB CONC 32.6 g/dl (33.0-37.0); MEAN PLATELET VOLUME 9.6 fl (9.6-12.3); RED BLOOD COUNT 4.65 10*6/uL (4.10-5.10); RED CELL DISTRI WIDTH 12.7 % (0-14.5); WHITE BLOOD COUNT 5.8 10*3/uL (4.8-10.8)
[2018-03-11 13:48] LABS: THYROID STIM HORMONE (HS) 0.006 uIU/ml (0.358-4.75)
[2018-03-11 17:15] LABS: VITAMIN D, 25-HYDROXY 34.8 ng/mL (30-100)
== END | disposition home or self-care (01) ==
LOC: LAB 12:47
PROVIDERS: Family Medicine; Internal Medicine Endocrinology, Diabetes & Metabolism
DX: E03.8 Other specified hypothyroidism (principal); R53.83 Other fatigue; R25.2 Cramp and spasm; E74.00 Glycogen storage disease, unspecified; F41.1 Generalized anxiety disorder

== ENCOUNTER → 2018-05-02 | Outpatient (CLI) | payer MEDICAID ==
[2018-05-02 09:24] LABS: BASO # 0.1 10*3/uL (0.0-0.1); EOS # 0.2 10*3/uL (0.0-0.4); EOS % 3.3 % (1.0-4.0); HEMATOCRIT 42.9 % (37.0-47.0); HEMOGLOBIN 14.6 g/dl (12.0-16.0); LYMPH # 2.2 10*3/uL (1.3-4.4); LYMPH % 42.1 % (27.0-41.0); MEAN CELL VOLUME 89.9 fl (81.0-99.0); MEAN CORPUSCULAR HGB 30.6 pg (27.0-31.0); MEAN PLATELET VOLUME 9.2 fl (9.6-12.3); MONO # 0.6 10*3/uL (0.1-1.0); NEUT # 2.1 10*3/uL (2.3-7.9); NEUT % 41.2 % (47.0-73.0); PLATELET COUNT AUTOMATED 217 10*3/uL (130-400); RED BLOOD COUNT 4.77 10*6/uL (4.10-5.10); RED CELL DISTRI WIDTH 13.4 % (0-14.5); WHITE BLOOD COUNT 5.2 10*3/uL (4.8-10.8)
[2018-05-02 09:27] LABS: ALBUMIN 3.2 gm/dl (3.1-4.5); BUN 15 mg/dl (7-24); CHLORIDE 93 mmol/L (98-107); CREATININE 0.86 mg/dL (0.55-1.02); POTASSIUM 3.6 mmol/L (3.5-5.1); SGOT/AST 6 IU/L (3-35); SGPT/ALT 11 U/L (12-78); SODIUM 129 mmol/L (136-145)
[2018-05-02 09:36] LABS: ALKALINE PHOSPHATASE 76 U/L (45-117); TOTAL PROTEIN 7.7 gm/dL (6.4-8.2); VALPROIC ACID (DEPAKENE) 56.4 ug/ml (50-100)
[2018-05-02 09:39] LABS: THYROID STIM HORMONE (HS) < 0.005 uIU/ml (0.358-4.75)
[2018-05-02 10:31] LABS: VITAMIN D, 25-HYDROXY 41.2 ng/mL (30-100)
[2018-05-03 08:11] LABS: PROLACTIN 004465 85.9 ng/mL (4.8-23.3)
== END | disposition home or self-care (01) ==
LOC: LAB 08:17
PROVIDERS: Registered Nurse
DX: Z79.899 Other long term (current) drug therapy (principal)

== ENCOUNTER → 2018-05-11 | Outpatient (CLI) | payer MEDICAID ==
[2018-05-11 12:14] LABS: HEMATOCRIT 43.8 % (37.0-47.0); HEMOGLOBIN 14.3 g/dl (12.0-16.0); MEAN CELL VOLUME 92.6 fl (81.0-99.0); MEAN CORPUSCULAR HGB 30.2 pg (27.0-31.0); MEAN CORPUSCULAR HGB CONC 32.6 g/dl (33.0-37.0); MEAN PLATELET VOLUME 8.8 fl (9.6-12.3); RED BLOOD COUNT 4.73 10*6/uL (4.10-5.10); RED CELL DISTRI WIDTH 13.5 % (0-14.5); WHITE BLOOD COUNT 6.2 10*3/uL (4.8-10.8)
[2018-05-11 12:48] LABS: ALBUMIN 3.3 gm/dl (3.1-4.5); ALKALINE PHOSPHATASE 80 U/L (45-117); BUN 12 mg/dl (7-24); CHLORIDE 100 mmol/L (98-107); CREATININE 0.85 mg/dL (0.55-1.02); SGOT/AST 6 IU/L (3-35); SGPT/ALT 11 U/L (12-78); SODIUM 134 mmol/L (136-145)
[2018-05-11 12:58] LABS: THYROID STIM HORMONE (HS) < 0.005 uIU/ml (0.358-4.75)
== END | disposition home or self-care (01) ==
LOC: LAB 11:50
PROVIDERS: Family Medicine
DX: E03.9 Hypothyroidism, unspecified (principal); F41.1 Generalized anxiety disorder; E74.00 Glycogen storage disease, unspecified; R53.83 Other fatigue; E87.6 Hypokalemia

== ENCOUNTER → 2018-06-03 | Outpatient (CLI) | payer MEDICAID ==
[2018-06-03 15:20] LABS: FREE T4 1.05 ng/dl (0.76-1.46)
[2018-06-03 15:26] LABS: THYROID STIM HORMONE (HS) 0.006 uIU/ml (0.358-4.75)
[2018-06-04 07:06] LABS: RHEUMATOID ARTHRITIS FACTOR 12.9 IU/mL (0.0-13.9)
== END | disposition home or self-care (01) ==
LOC: LAB 14:11
PROVIDERS: Family Medicine
DX: E03.9 Hypothyroidism, unspecified (principal); M79.10 Myalgia, unspecified site; M25.50 Pain in unspecified joint

== ENCOUNTER → 2018-06-16 | Outpatient (CLI) | payer MEDICAID ==
[2018-06-16 16:05] LABS: ALBUMIN 3.5 gm/dl (3.1-4.5); BUN 9 mg/dl (7-24); CHLORIDE 98 mmol/L (98-107); CREATININE 0.88 mg/dL (0.55-1.02); PHOSPHOROUS 3.6 mg/dL (2.5-4.9); POTASSIUM 3.9 mmol/L (3.5-5.1); SODIUM 136 mmol/L (136-145)
== END | disposition home or self-care (01) ==
LOC: LAB 14:52
PROVIDERS: Internal Medicine Nephrology
DX: E87.1 Hypo-osmolality and hyponatremia (principal); R25.2 Cramp and spasm; R76.0 Raised antibody titer

== ENCOUNTER → 2018-08-03 | Outpatient (CLI) | payer MEDICAID ==
[2018-08-03 10:27] LABS: ALBUMIN 3.6 gm/dl (3.1-4.5); ALKALINE PHOSPHATASE 78 U/L (45-117); BUN 11 mg/dl (7-24); CHLORIDE 99 mmol/L (98-107); CREATININE 0.97 mg/dL (0.55-1.02); POTASSIUM 3.6 mmol/L (3.5-5.1); SGOT/AST 8 IU/L (3-35); SGPT/ALT 10 U/L (12-78); SODIUM 137 mmol/L (136-145)
== END | disposition home or self-care (01) ==
LOC: LAB 09:07
PROVIDERS: Family Medicine
DX: R60.0 Localized edema (principal)

== ENCOUNTER → 2018-09-06 | Outpatient (CLI) | payer MEDICAID ==
[2018-09-06 09:06] LABS: FREE T4 1.33 ng/dl (0.76-1.46)
[2018-09-06 09:11] LABS: THYROID STIM HORMONE (HS) < 0.005 uIU/ml (0.358-4.75)
== END | disposition home or self-care (01) ==
LOC: LAB 08:02
PROVIDERS: Internal Medicine Endocrinology, Diabetes & Metabolism
DX: E03.8 Other specified hypothyroidism (principal)

== ENCOUNTER → 2018-12-26 | Outpatient (CLI) | payer MEDICAID | END | disposition home or self-care (01) | LOC: RAD 00:50 | DX: M81.0 Age-related osteoporosis without current pathological fracture (principal); E55.9 Vitamin D deficiency, unspecified; M19.90 Unspecified osteoarthritis, unspecified site; M41.80 Other forms of scoliosis, site unspecified; Z78.0 Asymptomatic menopausal state ==

== ENCOUNTER → 2019-01-11 | Outpatient (CLI) | payer MEDICAID | END | disposition home or self-care (01) | LOC: US 02:43 | DX: M79.604 Pain in right leg (principal); R60.0 Localized edema; Z86.718 Personal history of other venous thrombosis and embolism ==

== ENCOUNTER → 2019-01-24 | Outpatient (CLI) | payer MEDICAID ==
[2019-01-24 11:50] LABS: ALBUMIN 3.6 gm/dl (3.1-4.5); BUN 10 mg/dl (7-24); CHLORIDE 95 mmol/L (98-107); PHOSPHOROUS 3.4 mg/dL (2.5-4.9); POTASSIUM 3.7 mmol/L (3.5-5.1); SODIUM 129 mmol/L (136-145); URIC ACID 6.5 mg/dL (2.6-6.0)
== END | disposition home or self-care (01) ==
LOC: LAB 10:55
PROVIDERS: Internal Medicine Nephrology
DX: E87.1 Hypo-osmolality and hyponatremia (principal); E78.1 Pure hyperglyceridemia

== ENCOUNTER → 2019-03-01 | Outpatient (CLI) | payer MEDICAID ==
[2019-03-01 11:59] LABS: ALBUMIN 3.5 gm/dl (3.1-4.5); BUN 11 mg/dl (7-24); CHLORIDE 100 mmol/L (98-107); POTASSIUM 3.7 mmol/L (3.5-5.1); SODIUM 136 mmol/L (136-145)
== END | disposition home or self-care (01) ==
LOC: LAB 11:10
PROVIDERS: Internal Medicine Nephrology
DX: E87.1 Hypo-osmolality and hyponatremia (principal)

== ENCOUNTER → 2019-04-12 | Outpatient (CLI) | payer MEDICAID ==
[2019-04-12 11:25] LABS: ALBUMIN 3.5 gm/dl (3.1-4.5); BUN 9 mg/dl (7-24); CHLORIDE 92 mmol/L (98-107); CREATININE 0.96 mg/dL (0.55-1.02); PHOSPHOROUS 2.9 mg/dL (2.5-4.9); POTASSIUM 3.6 mmol/L (3.5-5.1); SODIUM 131 mmol/L (136-145)
== END | disposition home or self-care (01) ==
LOC: LAB 10:50
PROVIDERS: Internal Medicine Nephrology
DX: E87.1 Hypo-osmolality and hyponatremia (principal)

== ENCOUNTER → 2019-05-01 | Outpatient (CLI) | payer MEDICAID | END | disposition home or self-care (01) | LOC: RAD 08:30 | DX: J98.4 Other disorders of lung (principal) ==

== ENCOUNTER → 2019-05-17 | Outpatient (CLI) | payer MEDICAID ==
[2019-05-17 12:21] LABS: ALBUMIN 3.4 gm/dl (3.1-4.5); BUN 9 mg/dl (7-24); CHLORIDE 97 mmol/L (98-107); CREATININE 0.87 mg/dL (0.55-1.02); POTASSIUM 3.6 mmol/L (3.5-5.1); SODIUM 133 mmol/L (136-145); URIC ACID 6.1 mg/dL (2.6-6.0)
== END | disposition home or self-care (01) ==
LOC: LAB 11:06
PROVIDERS: Internal Medicine Nephrology
DX: E87.1 Hypo-osmolality and hyponatremia (principal)

== ENCOUNTER → 2019-06-12 | Outpatient (CLI) | payer MEDICAID ==
[2019-06-12 10:42] LABS: ALBUMIN 3.6 gm/dl (3.1-4.5); BUN 13 mg/dl (7-24); CHLORIDE 90 mmol/L (98-107); CREATININE 0.96 mg/dL (0.55-1.02); SODIUM 128 mmol/L (136-145); URIC ACID 6.8 mg/dL (2.6-6.0)
== END | disposition home or self-care (01) ==
LOC: LAB 09:22
PROVIDERS: Internal Medicine Nephrology
DX: Z51.81 Encounter for therapeutic drug level monitoring (principal); E87.1 Hypo-osmolality and hyponatremia; Z79.899 Other long term (current) drug therapy

== ENCOUNTER → 2019-06-22 | Outpatient (CLI) | payer MEDICAID ==
[2019-06-22 09:26] LABS: ALBUMIN 3.4 gm/dl (3.1-4.5); ALKALINE PHOSPHATASE 72 U/L (45-117); BUN 19 mg/dl (7-24); CHLORIDE 98 mmol/L (98-107); CREATININE 0.95 mg/dL (0.55-1.02); POTASSIUM 4.6 mmol/L (3.5-5.1); SGOT/AST 8 IU/L (3-35); SGPT/ALT 13 U/L (12-78); SODIUM 133 mmol/L (136-145); TOTAL PROTEIN 7.4 gm/dL (6.4-8.2)
== END | disposition home or self-care (01) ==
LOC: LAB 07:56
PROVIDERS: Family Medicine
DX: E87.1 Hypo-osmolality and hyponatremia (principal)

== ENCOUNTER → 2019-08-07 | Outpatient (CLI) | payer MEDICAID ==
[2019-08-07 10:58] LABS: ALBUMIN 3.4 gm/dl (3.1-4.5); ALKALINE PHOSPHATASE 70 U/L (45-117); BUN 13 mg/dl (7-24); CHLORIDE 99 mmol/L (98-107); CREATININE 0.81 mg/dL (0.55-1.02); SGOT/AST 7 IU/L (3-35); SGPT/ALT 16 U/L (12-78); SODIUM 135 mmol/L (136-145); TOTAL PROTEIN 7.3 gm/dL (6.4-8.2)
== END | disposition home or self-care (01) ==
LOC: LAB 09:38
PROVIDERS: Family Medicine
DX: E78.1 Pure hyperglyceridemia (principal)

== ENCOUNTER → 2019-09-05 | Outpatient (CLI) | payer MEDICAID ==
[2019-09-05 08:34] LABS: ALBUMIN 3.5 gm/dl (3.1-4.5); BUN 13 mg/dl (7-24); CHLORIDE 98 mmol/L (98-107); CREATININE 0.89 mg/dL (0.55-1.02); POTASSIUM 4.4 mmol/L (3.5-5.1); SODIUM 131 mmol/L (136-145); URIC ACID 5.3 mg/dL (2.6-6.0)
[2019-09-05 08:38] LABS: FREE T4 1.36 ng/dl (0.76-1.46)
[2019-09-05 08:45] LABS: THYROID STIM HORMONE (HS) < 0.005 uIU/ml (0.358-4.75)
== END | disposition home or self-care (01) ==
LOC: LAB 07:47
PROVIDERS: Internal Medicine Endocrinology, Diabetes & Metabolism; Internal Medicine Nephrology
DX: E03.8 Other specified hypothyroidism (principal); E87.1 Hypo-osmolality and hyponatremia

== ENCOUNTER → 2019-09-14 | Outpatient (CLI) | payer MEDICAID | END | disposition home or self-care (01) | LOC: CT 01:05 | DX: I67.82 Cerebral ischemia (principal); Z98.890 Other specified postprocedural states ==

== ENCOUNTER → 2019-12-25 | Outpatient (CLI) | payer MEDICAID ==
[2019-12-25 10:44] LABS: BASO # 0.1 10*3/uL (0.0-0.1); EOS # 0.1 10*3/uL (0.0-0.4); EOS % 2.2 % (1.0-4.0); HEMATOCRIT 39.7 % (37.0-47.0); LYMPH # 1.8 10*3/uL (1.3-4.4); LYMPH % 30.7 % (27.0-41.0); MEAN CELL VOLUME 88.2 fl (81.0-99.0); MEAN CORPUSCULAR HGB 28.7 pg (27.0-31.0); MEAN CORPUSCULAR HGB CONC 32.5 g/dl (33.0-37.0); MEAN PLATELET VOLUME 8.5 fl (9.6-12.3); MONO # 0.7 10*3/uL (0.1-1.0); MONO % 11.7 % (3.0-9.0); NEUT # 3.2 10*3/uL (2.3-7.9); NEUT % 54.1 % (47.0-73.0); PLATELET COUNT AUTOMATED 244 10*3/uL (130-400); RED CELL DISTRI WIDTH 12.6 % (0-14.5); WHITE BLOOD COUNT 5.9 10*3/uL (4.8-10.8)
[2019-12-25 11:11] LABS: ALBUMIN 3.1 gm/dl (3.1-4.5); BUN 11 mg/dl (7-24); CHLORIDE 99 mmol/L (98-107); CREATININE 0.77 mg/dL (0.55-1.02); POTASSIUM 4.7 mmol/L (3.5-5.1); SODIUM 129 mmol/L (136-145)
[2019-12-25 14:37] LABS: BILIRUBIN Negative; CLARITY Turbid (Clear); COLOR Yellow (Yellow); GLUCOSE Negative; KETONE Negative
[2019-12-25 14:38] LABS: LEUKO ESTERASE 3+ (Negative); NITRITE Negative (Negative); PH 5.5 (4.5-8.0)
[2019-12-25 14:39] LABS: BLOOD Trace-Lysed (Negative)
[2019-12-25 15:09] LABS: WBC 51-100 wbc/hpf (0-5)
[2019-12-25 15:10] LABS: BACTERIA 4+
[2019-12-25 15:12] LABS: FINE GRANULAR CAST 0-2
== END | disposition home or self-care (01) ==
LOC: RAD 09:33 → LAB 09:33
PROVIDERS: Internal Medicine Nephrology; ATTEND Family Medicine
DX: M51.37 Other intervertebral disc degeneration, lumbosacral region (principal); M48.07 Spinal stenosis, lumbosacral region; J44.9 Chronic obstructive pulmonary disease, unspecified; I11.0 Hypertensive heart disease with heart failure; I50.9 Heart failure, unspecified; M47.816 Spondylosis without myelopathy or radiculopathy, lumbar region; M47.817 Spondylosis without myelopathy or radiculopathy, lumbosacral region; E87.1 Hypo-osmolality and hyponatremia

== ENCOUNTER → 2020-01-08 | Outpatient (CLI) | payer MEDICAID | END | disposition home or self-care (01) | LOC: LAB 15:51 | DX: Z51.81 Encounter for therapeutic drug level monitoring (principal); Z79.899 Other long term (current) drug therapy ==

== ENCOUNTER 2020-01-31 17:33 | Inpatient (IN) | payer MEDICAID ==
[~2020-01-31] VITALS: Ht 165.1 cm; Wt 125.6 kg
[2020-01-31 17:44] VITALS: BP 117/56
[2020-01-31 18:23] LABS: BASO # 0.1 10*3/uL (0.0-0.1); BASO % 0.7 % (0.0-1.0); EOS # 0.2 10*3/uL (0.0-0.4); EOS % 2.3 % (1.0-4.0); HEMATOCRIT 39.6 % (37.0-47.0); LYMPH # 2.3 10*3/uL (1.3-4.4); LYMPH % 32.9 % (27.0-41.0); MEAN CELL VOLUME 86.3 fl (81.0-99.0); MEAN CORPUSCULAR HGB 28.5 pg (27.0-31.0); MEAN CORPUSCULAR HGB CONC 33.1 g/dl (33.0-37.0); MEAN PLATELET VOLUME 8.2 fl (9.6-12.3); MONO # 0.7 10*3/uL (0.1-1.0); MONO % 9.6 % (3.0-9.0); NEUT # 3.7 10*3/uL (2.3-7.9); NEUT % 54.2 % (47.0-73.0); PLATELET COUNT AUTOMATED 255 10*3/uL (130-400); RED BLOOD COUNT 4.59 10*6/uL (4.10-5.10); RED CELL DISTRI WIDTH 12.6 % (0-14.5); WHITE BLOOD COUNT 6.9 10*3/uL (4.8-10.8)
[2020-01-31 18:36] LABS: ALBUMIN 3.3 gm/dl (3.1-4.5); ALKALINE PHOSPHATASE 67 U/L (45-117); BUN 12 mg/dl (7-24); CHLORIDE 96 mmol/L (98-107); POTASSIUM 4.1 mmol/L (3.5-5.1); SGOT/AST 9 IU/L (3-35); SGPT/ALT 17 U/L (12-78); SODIUM 133 mmol/L (136-145); TOTAL PROTEIN 7.4 gm/dL (6.4-8.2)
[2020-01-31 20:08] VITALS: BP 121/64
[2020-01-31 21:00] VITALS: BP 121/64
[2020-01-31] MEDS ORDERED: REQUIP0.25 M1 PO (21:37)
[2020-01-31] MEDS ORDERED: BUMETANIDE2 MG PO (21:38)
[2020-01-31] MEDS ORDERED: TRINTELLIX10 MG PO (21:38)
[2020-01-31] MEDS ORDERED: OYSTER SHELL C1 EAC3 PO (21:40)
[2020-01-31] MEDS ORDERED: INVEGA3 MG PO (21:41)
[2020-01-31] MEDS ORDERED: MYSOLINE50 M2 PO (21:41)
[2020-01-31] MEDS ORDERED: INVEGA6 MG PO (21:41)
[2020-01-31] MEDS ORDERED: FOSAMAX70 M1 PO (21:44)
[2020-01-31] MEDS ORDERED: POTASSIUM CHLO20 ME4 PO (21:45)
[2020-02-01] VITALS: BP 144/66
[2020-02-01] MEDS ORDERED: MAGNESIUM250 M1 PO (04:00)
[2020-02-01] MEDS ORDERED: SYNTHROID,LEVO88 MCG PO (05:17)
[2020-02-01 08:00] VITALS: BP 100/57
[2020-02-01 12:00] VITALS: BP 99/48
[2020-02-01 16:00] VITALS: BP 101/47; BP 124/72
[2020-02-01 20:00] VITALS: BP 112/50
[2020-02-02] VITALS: BP 106/56
[2020-02-02 08:00] VITALS: BP 114/47
[2020-02-02 12:00] VITALS: BP 105/46; BP 114/71
[2020-02-02 16:00] VITALS: BP 106/51
[2020-02-02 20:00] VITALS: BP 105/56
[2020-02-03] VITALS: BP 118/66
[2020-02-03 08:00] VITALS: BP 99/46
[2020-02-03 12:00] VITALS: BP 97/58
[2020-02-03 16:00] VITALS: BP 98/68
[2020-02-03] MEDS ORDERED: KEFLEX 500 MG E2 CAP PO (16:24)
[2020-02-03] MEDS ORDERED: TYLENOL EXTRA500 MG PO (16:24)
== END 2020-02-03 17:28 | disposition home health service (06) | DRG 383 ==
LOC: ED 17:33 → EDHOLD 20:31 → 4E 20:31
PROVIDERS: Physician Assistant; ADMIT Internal Medicine; ATTEND Internal Medicine
DX: L03.116 Cellulitis of left lower limb (principal); E66.01 Morbid (severe) obesity due to excess calories; Z68.42 Body mass index [BMI] 45.0-49.9, adult; I50.32 Chronic diastolic (congestive) heart failure; I11.0 Hypertensive heart disease with heart failure; J44.9 Chronic obstructive pulmonary disease, unspecified; K21.00 Gastro-esophageal reflux disease with esophagitis, without bleeding; E03.9 Hypothyroidism, unspecified; F33.1 Major depressive disorder, recurrent, moderate; F17.210 Nicotine dependence, cigarettes, uncomplicated; Z96.642 Presence of left artificial hip joint; J84.10 Pulmonary fibrosis, unspecified; F41.1 Generalized anxiety disorder; E11.42 Type 2 diabetes mellitus with diabetic polyneuropathy; I87.8 Other specified disorders of veins; G25.81 Restless legs syndrome; G89.29 Other chronic pain; F51.01 Primary insomnia; G40.909 Epilepsy, unspecified, not intractable, without status epilepticus; G43.909 Migraine, unspecified, not intractable, without status migrainosus; E87.1 Hypo-osmolality and hyponatremia; Z90.49 Acquired absence of other specified parts of digestive tract; Z83.3 Family history of diabetes mellitus; Z82.3 Family history of stroke; Z82.49 Family history of ischemic heart disease and other diseases of the circulatory system; Z86.718 Personal history of other venous thrombosis and embolism; Z71.6 Tobacco abuse counseling; Z91.81 History of falling

== ENCOUNTER → 2020-04-10 | Outpatient (CLI) | payer MEDICAID ==
[~2020-04-10] MED LIST changes: +BUMETANIDE2 MG PO; +FOSAMAX70 M1 PO; +INVEGA3 MG PO; +INVEGA6 MG PO; +KEFLEX 500 MG E2 CAP PO; +MAGNESIUM250 M1 PO; +MYSOLINE50 M2 PO; +POTASSIUM CHLO20 ME4 PO; +REQUIP0.25 M1 PO; +TRINTELLIX10 MG PO; +TYLENOL EXTRA500 MG PO
[2020-04-10 12:06] LABS: ALBUMIN 3.3 gm/dl (3.1-4.5); BUN 8 mg/dl (7-24); CHLORIDE 88 mmol/L (98-107); CREATININE 0.71 mg/dL (0.55-1.02); SODIUM 122 mmol/L (136-145); URIC ACID 4.1 mg/dL (2.6-6.0)
== END | disposition home or self-care (01) ==
LOC: LAB 00:32
PROVIDERS: ATTEND Internal Medicine Nephrology
DX: E87.1 Hypo-osmolality and hyponatremia (principal)

== ENCOUNTER → 2020-04-19 | Outpatient (CLI) | payer MEDICAID | END | disposition home or self-care (01) | LOC: LAB 09:40 | PROVIDERS: ATTEND Family Medicine | DX: E87.5 Hyperkalemia (principal) ==

== ENCOUNTER → 2020-04-24 | Outpatient (CLI) | payer MEDICAID | END | disposition home or self-care (01) | LOC: RAD 12:19 | PROVIDERS: ATTEND Family Medicine | DX: J44.9 Chronic obstructive pulmonary disease, unspecified (principal); J40 Bronchitis, not specified as acute or chronic ==

== ENCOUNTER → 2020-05-08 | Outpatient (CLI) | payer MEDICAID ==
[2020-05-08 08:25] LABS: ALBUMIN 3.3 gm/dl (3.1-4.5); BUN 10 mg/dl (7-24); CHLORIDE 97 mmol/L (98-107); CREATININE 0.88 mg/dL (0.55-1.02); SODIUM 131 mmol/L (136-145); URIC ACID 5.9 mg/dL (2.6-6.0)
== END | disposition home or self-care (01) ==
LOC: LAB 02:51
PROVIDERS: ATTEND Internal Medicine Nephrology
DX: E87.1 Hypo-osmolality and hyponatremia (principal)

== ENCOUNTER → 2020-05-29 | Outpatient (CLI) | payer MEDICAID ==
[2020-05-29 10:03] LABS: ALBUMIN 3.5 gm/dl (3.1-4.5); BUN 13 mg/dl (7-24); CHLORIDE 95 mmol/L (98-107); CREATININE 0.85 mg/dL (0.55-1.02); SODIUM 132 mmol/L (136-145); URIC ACID 5.9 mg/dL (2.6-6.0)
== END | disposition home or self-care (01) ==
LOC: LAB 00:38
PROVIDERS: ATTEND Internal Medicine Nephrology
DX: E87.1 Hypo-osmolality and hyponatremia (principal)

== ENCOUNTER → 2020-06-04 | Outpatient (CLI) | payer MEDICAID | END | disposition home or self-care (01) | LOC: CT 05-31 02:05 | PROVIDERS: ATTEND Family Medicine | DX: J43.8 Other emphysema (principal); I25.10 Atherosclerotic heart disease of native coronary artery without angina pectoris; F17.210 Nicotine dependence, cigarettes, uncomplicated; Z90.49 Acquired absence of other specified parts of digestive tract ==

== ENCOUNTER → 2020-07-03 | Outpatient (CLI) | payer MEDICAID ==
[2020-07-03 08:11] LABS: BASO # 0.1 10*3/uL (0.0-0.1); EOS # 0.2 10*3/uL (0.0-0.4); EOS % 2.5 % (1.0-4.0); HEMATOCRIT 42.8 % (37.0-47.0); LYMPH # 2.5 10*3/uL (1.3-4.4); MEAN CELL VOLUME 92.6 fl (81.0-99.0); MEAN CORPUSCULAR HGB 29.9 pg (27.0-31.0); MEAN CORPUSCULAR HGB CONC 32.2 g/dl (33.0-37.0); MEAN PLATELET VOLUME 8.9 fl (9.6-12.3); MONO # 0.8 10*3/uL (0.1-1.0); MONO % 10.5 % (3.0-9.0); NEUT # 3.6 10*3/uL (2.3-7.9); NEUT % 50.7 % (47.0-73.0); PLATELET COUNT AUTOMATED 249 10*3/uL (130-400); RED BLOOD COUNT 4.62 10*6/uL (4.10-5.10); RED CELL DISTRI WIDTH 13.3 % (0-14.5); WHITE BLOOD COUNT 7.1 10*3/uL (4.8-10.8)
[2020-07-03 08:35] LABS: ALBUMIN 3.3 gm/dl (3.1-4.5); ALKALINE PHOSPHATASE 70 U/L (45-117); BUN 15 mg/dl (7-24); CHLORIDE 98 mmol/L (98-107); CHLORIDE 99 mmol/L (98-107); POTASSIUM 3.7 mmol/L (3.5-5.1); POTASSIUM 3.8 mmol/L (3.5-5.1); SGOT/AST 6 IU/L (3-35); SGPT/ALT 13 U/L (12-78); SODIUM 133 mmol/L (136-145); TOTAL PROTEIN 7.8 gm/dL (6.4-8.2); URIC ACID 6.4 mg/dL (2.6-6.0)
[2020-07-05 12:07] LABS: FREE VALPROIC ACID (DEPAKOTE) 7.6 ug/mL (6.0-22.0)
== END | disposition home or self-care (01) ==
LOC: LAB 00:36
PROVIDERS: ATTEND Internal Medicine Nephrology
DX: E87.1 Hypo-osmolality and hyponatremia (principal); G40.209 Localization-related (focal) (partial) symptomatic epilepsy and epileptic syndromes with complex partial seizures, not intractable, without status epilepticus

== ENCOUNTER → 2020-08-21 | Outpatient (CLI) | payer MEDICAID | END | disposition home or self-care (01) | LOC: LAB 00:31 | PROVIDERS: ATTEND Nurse Practitioner | DX: Z51.81 Encounter for therapeutic drug level monitoring (principal); Z79.899 Other long term (current) drug therapy ==

== ENCOUNTER → 2020-11-26 | Outpatient (CLI) | payer MEDICAID ==
[2020-11-26 09:51] LABS: FREE T4 1.01 ng/dl (0.76-1.46)
[2020-11-26 09:57] LABS: THYROID STIM HORMONE (HS) 0.009 uIU/ml (0.358-4.75)
== END | disposition home or self-care (01) ==
LOC: LAB 00:28
PROVIDERS: ATTEND Internal Medicine Endocrinology, Diabetes & Metabolism
DX: E03.8 Other specified hypothyroidism (principal)

== ENCOUNTER → 2020-12-19 | Outpatient (CLI) | payer MEDICAID ==
[2020-12-19 09:58] LABS: HEMATOCRIT 43.9 % (37.0-47.0); MEAN CELL VOLUME 89.6 fl (81.0-99.0); MEAN CORPUSCULAR HGB CONC 33.5 g/dl (33.0-37.0); MEAN PLATELET VOLUME 8.8 fl (9.6-12.3); RED BLOOD COUNT 4.9 10*6/uL (4.10-5.10); RED CELL DISTRI WIDTH 12.4 % (0-14.5)
[2020-12-19 10:26] LABS: ALBUMIN 3.2 gm/dl (3.1-4.5); ALKALINE PHOSPHATASE 66 U/L (45-117); BUN 8 mg/dl (7-24); CHLORIDE 91 mmol/L (98-107); CHOLESTEROL 165 mg/dL (<200); CREATININE 0.83 mg/dL (0.55-1.02); LDL CHOLESTEROL 89 mg/dL (9-159); POTASSIUM 4.7 mmol/L (3.5-5.1); SGOT/AST 8 IU/L (3-35); SGPT/ALT 13 U/L (12-78); SODIUM 127 mmol/L (136-145); TOTAL PROTEIN 8.2 gm/dL (6.4-8.2); TRIGLYCERIDES 102 mg/dl (<150)
== END | disposition home or self-care (01) ==
LOC: LAB 12-17 11:17
PROVIDERS: ATTEND Family Medicine
DX: E55.9 Vitamin D deficiency, unspecified (principal); E78.00 Pure hypercholesterolemia, unspecified; Z79.899 Other long term (current) drug therapy

== ENCOUNTER → 2021-01-21 | Outpatient (CLI) | payer MEDICAID ==
[2021-01-21 11:28] LABS: ALBUMIN 2.9 gm/dl (3.1-4.5); BUN 6 mg/dl (7-24); CHLORIDE 91 mmol/L (98-107); CREATININE 0.77 mg/dL (0.55-1.02); POTASSIUM 3.7 mmol/L (3.5-5.1); SODIUM 127 mmol/L (136-145); URIC ACID 4.6 mg/dL (2.6-6.0)
[2021-01-21 11:33] LABS: THYROXINE (T4) TOTAL 8.5 ug/dl (4.8-13.9)
[2021-01-21 11:39] LABS: THYROID STIM HORMONE (HS) 0.016 uIU/ml (0.358-4.75)
== END | disposition home or self-care (01) ==
LOC: LAB 00:08
PROVIDERS: Physician Assistant; ATTEND Internal Medicine Nephrology
DX: E03.8 Other specified hypothyroidism (principal); E87.1 Hypo-osmolality and hyponatremia

== ENCOUNTER → 2021-02-17 | Outpatient (CLI) | payer MEDICAID ==
[2021-02-17 12:26] LABS: ALBUMIN 2.8 gm/dl (3.1-4.5); ALKALINE PHOSPHATASE 63 U/L (45-117); BUN 6 mg/dl (7-24); CHLORIDE 90 mmol/L (98-107); CREATININE 0.74 mg/dL (0.55-1.02); POTASSIUM 4.2 mmol/L (3.5-5.1); SGOT/AST 6 IU/L (3-35); SGPT/ALT 12 U/L (12-78); SODIUM 123 mmol/L (136-145); TOTAL PROTEIN 7.6 gm/dL (6.4-8.2)
== END ==
LOC: LAB 02:22
DX: G40.209 Localization-related (focal) (partial) symptomatic epilepsy and epileptic syndromes with complex partial seizures, not intractable, without status epilepticus (principal)

== ENCOUNTER → 2021-03-05 | Outpatient (CLI) | payer OTHER ==
[2021-03-05 09:44] LABS: ALBUMIN 2.9 gm/dl (3.1-4.5); ALKALINE PHOSPHATASE 60 U/L (45-117); BUN 12 mg/dl (7-24); CHLORIDE 95 mmol/L (98-107); CREATININE 0.82 mg/dL (0.55-1.02); POTASSIUM 3.8 mmol/L (3.5-5.1); SGOT/AST 5 IU/L (3-35); SGPT/ALT 12 U/L (12-78); SODIUM 131 mmol/L (136-145); TOTAL PROTEIN 7.4 gm/dL (6.4-8.2)
== END | disposition home or self-care (01) ==
LOC: LAB 00:23
PROVIDERS: ATTEND Psychiatry & Neurology Neurology
DX: G40.209 Localization-related (focal) (partial) symptomatic epilepsy and epileptic syndromes with complex partial seizures, not intractable, without status epilepticus (principal)

== ENCOUNTER → 2021-05-23 | Outpatient (CLI) | payer OTHER ==
[2021-05-23 10:42] LABS: BUN 7 mg/dl (7-24); CHLORIDE 99 mmol/L (98-107); CREATININE 0.79 mg/dL (0.55-1.02); POTASSIUM 4.2 mmol/L (3.5-5.1); SODIUM 133 mmol/L (136-145)
== END | disposition home or self-care (01) ==
LOC: LAB 09:42
PROVIDERS: ATTEND Internal Medicine Nephrology
DX: E87.1 Hypo-osmolality and hyponatremia (principal)

== ENCOUNTER → 2021-08-07 | Outpatient (CLI) | payer OTHER ==
[2021-08-07 10:19] LABS: BUN 9 mg/dl (7-24); CHLORIDE 94 mmol/L (98-107); CREATININE 0.83 mg/dL (0.55-1.02); POTASSIUM 3.5 mmol/L (3.5-5.1); SODIUM 132 mmol/L (136-145); URIC ACID 6.1 mg/dL (2.6-6.0)
== END | disposition home or self-care (01) ==
LOC: LAB 00:51
PROVIDERS: ATTEND Internal Medicine Nephrology
DX: E87.1 Hypo-osmolality and hyponatremia (principal)

== ENCOUNTER → 2021-09-22 | Outpatient (CLI) | payer OTHER | END | disposition home or self-care (01) | LOC: RAD 10:59 | PROVIDERS: ATTEND Family Medicine | DX: M77.32 Calcaneal spur, left foot (principal); M79.604 Pain in right leg ==

== ENCOUNTER 2021-09-30 10:03 | Inpatient (IN) | payer OTHER ==
[~2021-09-30] VITALS: Ht 170.1 cm; Wt 118.0 kg
[2021-09-30 10:10] VITALS: BP 115/99
[2021-09-30 10:43] LABS: BASO % 0.3 % (0.0-1.0); EOS % 0.4 % (1.0-4.0); HEMATOCRIT 34.5 % (37.0-47.0); LYMPH # 2.2 10*3/uL (1.3-4.4); LYMPH % 23.7 % (27.0-41.0); MEAN CELL VOLUME 94.8 fl (81.0-99.0); MEAN CORPUSCULAR HGB 30.2 pg (27.0-31.0); MEAN CORPUSCULAR HGB CONC 31.9 g/dl (33.0-37.0); MEAN PLATELET VOLUME 8.5 fl (9.6-12.3); MONO # 0.7 10*3/uL (0.1-1.0); MONO % 7.2 % (3.0-9.0); NEUT # 6.3 10*3/uL (2.3-7.9); NEUT % 67.5 % (47.0-73.0); PLATELET COUNT AUTOMATED 263 10*3/uL (130-400); RED BLOOD COUNT 3.64 10*6/uL (4.10-5.10); RED CELL DISTRI WIDTH 14.7 % (0-14.5); WHITE BLOOD COUNT 9.3 10*3/uL (4.8-10.8)
[2021-09-30 10:54] LABS: ACT PARTIAL THROMBO TIME 23.4 SECONDS (20.0-32.1)
[2021-09-30 11:03] LABS: BUN 11 mg/dl (7-24); CHLORIDE 95 mmol/L (98-107); LIPASE 172 U/L (73-393); POTASSIUM 4.5 mmol/L (3.5-5.1); SODIUM 132 mmol/L (136-145)
[2021-09-30 11:08] LABS: ALKALINE PHOSPHATASE 50 U/L (45-117); SGOT/AST 5 IU/L (3-35); SGPT/ALT 10 U/L (12-78)
[2021-09-30 13:50] VITALS: BP 110/60
[2021-09-30 15:15] VITALS: BP 120/69
[2021-09-30 20:00] VITALS: BP 104/55
[2021-10-01] VITALS: BP 122/66
[2021-10-01 08:00] VITALS: BP 118/62
[2021-10-01 12:00] VITALS: BP 113/61
[2021-10-01 16:00] VITALS: BP 120/62
[2021-10-01 20:00] VITALS: BP 97/47
[2021-10-02] VITALS: BP 112/51
[2021-10-02 08:00] VITALS: BP 120/59
[2021-10-02 12:00] VITALS: BP 108/62
[2021-10-02 15:49] VITALS: BP 111/59
[2021-10-02 20:00] VITALS: BP 108/47
[2021-10-03] VITALS: BP 121/65
[2021-10-03] MEDS ORDERED: CYCLOBENZAPRINE5 M3 PO (07:32)
[2021-10-03] MEDS ORDERED: PREDNISONE5 MG PO (07:32)
[2021-10-03] MEDS ORDERED: Ipratropium Brom3 ML INH (07:32)
[2021-10-03] MEDS ORDERED: CEFUROXIME AXE250 MG PO (07:32)
[2021-10-03 08:00] VITALS: BP 136/62
[2021-10-03 12:00] VITALS: BP 143/66
== END 2021-10-03 13:10 | disposition home or self-care (01) | DRG 189 ==
LOC: ED 10:03 → 4E 12:48 → EDHOLD 12:48 → 4E 14:34
PROVIDERS: Emergency Medicine; ADMIT Internal Medicine; ATTEND Internal Medicine
DX: J96.01 Acute respiratory failure with hypoxia (principal); J44.1 Chronic obstructive pulmonary disease with (acute) exacerbation; I50.32 Chronic diastolic (congestive) heart failure; E44.0 Moderate protein-calorie malnutrition; E87.1 Hypo-osmolality and hyponatremia; Z68.41 Body mass index [BMI] 40.0-44.9, adult; J44.0 Chronic obstructive pulmonary disease with (acute) lower respiratory infection; J20.9 Acute bronchitis, unspecified; J84.10 Pulmonary fibrosis, unspecified; S80.12XA Contusion of left lower leg, initial encounter; S80.11XA Contusion of right lower leg, initial encounter; E03.9 Hypothyroidism, unspecified; F32.9 Major depressive disorder, single episode, unspecified; F17.210 Nicotine dependence, cigarettes, uncomplicated; E87.8 Other disorders of electrolyte and fluid balance, not elsewhere classified; Z96.642 Presence of left artificial hip joint; R91.1 Solitary pulmonary nodule; E66.01 Morbid (severe) obesity due to excess calories; I73.9 Peripheral vascular disease, unspecified; I11.0 Hypertensive heart disease with heart failure; F41.1 Generalized anxiety disorder; Z90.49 Acquired absence of other specified parts of digestive tract; Z82.49 Family history of ischemic heart disease and other diseases of the circulatory system; Z86.718 Personal history of other venous thrombosis and embolism; Z83.3 Family history of diabetes mellitus; Z71.6 Tobacco abuse counseling

== ENCOUNTER → 2021-10-15 | Outpatient (CLI) | payer OTHER ==
[~2021-10-15] MED LIST changes: +CEFUROXIME AXE250 MG PO; +PREDNISONE5 MG PO
== END | disposition home or self-care (01) ==
LOC: RAD 14:55
PROVIDERS: ATTEND Family Medicine
DX: R07.89 Other chest pain (principal)

== ENCOUNTER → 2021-10-21 | Outpatient (CLI) | payer OTHER ==
[2021-10-21 14:14] LABS: BASO % 0.3 % (0.0-1.0); EOS # 0.1 10*3/uL (0.0-0.4); EOS % 1.2 % (1.0-4.0); HEMATOCRIT 34.6 % (37.0-47.0); LYMPH # 1.2 10*3/uL (1.3-4.4); LYMPH % 20.9 % (27.0-41.0); MEAN CELL VOLUME 96.1 fl (81.0-99.0); MEAN CORPUSCULAR HGB 30.6 pg (27.0-31.0); MEAN CORPUSCULAR HGB CONC 31.8 g/dl (33.0-37.0); MONO # 0.7 10*3/uL (0.1-1.0); MONO % 11.7 % (3.0-9.0); NEUT # 3.8 10*3/uL (2.3-7.9); NEUT % 65.6 % (47.0-73.0); PLATELET COUNT AUTOMATED 170 10*3/uL (130-400); RED CELL DISTRI WIDTH 15.8 % (0-14.5); WHITE BLOOD COUNT 5.8 10*3/uL (4.8-10.8)
[2021-10-21 14:42] LABS: BUN 7 mg/dl (7-24); CHLORIDE 98 mmol/L (98-107); CREATININE 0.84 mg/dL (0.55-1.02); POTASSIUM 4.3 mmol/L (3.5-5.1); SODIUM 137 mmol/L (136-145)
== END ==
LOC: LAB 13:32
PROVIDERS: ATTEND Family Medicine
DX: R06.02 Shortness of breath (principal)

== ENCOUNTER → 2021-10-24 | Outpatient (CLI) | payer OTHER | END | disposition home or self-care (01) | LOC: WOUNDCARE 00:45 | PROVIDERS: ATTEND Nurse Practitioner Family | DX: S80.11XA Contusion of right lower leg, initial encounter (principal); L97.811 Non-pressure chronic ulcer of other part of right lower leg limited to breakdown of skin; E03.9 Hypothyroidism, unspecified; I11.0 Hypertensive heart disease with heart failure; I50.32 Chronic diastolic (congestive) heart failure; I73.9 Peripheral vascular disease, unspecified; J44.9 Chronic obstructive pulmonary disease, unspecified; J84.10 Pulmonary fibrosis, unspecified; F31.9 Bipolar disorder, unspecified; F17.200 Nicotine dependence, unspecified, uncomplicated; Z96.642 Presence of left artificial hip joint; Z90.49 Acquired absence of other specified parts of digestive tract; W19.XXXA Unspecified fall, initial encounter; Y93.89 Activity, other specified; Y92.89 Other specified places as the place of occurrence of the external cause; Y99.8 Other external cause status ==

== ENCOUNTER → 2021-10-30 | Outpatient (CLI) | payer OTHER | END | disposition home or self-care (01) | LOC: WOUNDCARE 02:27 | PROVIDERS: ATTEND Nurse Practitioner Family | DX: S81.801D Unspecified open wound, right lower leg, subsequent encounter (principal); L97.811 Non-pressure chronic ulcer of other part of right lower leg limited to breakdown of skin; E03.9 Hypothyroidism, unspecified; I73.9 Peripheral vascular disease, unspecified; I11.0 Hypertensive heart disease with heart failure; I50.32 Chronic diastolic (congestive) heart failure; J44.9 Chronic obstructive pulmonary disease, unspecified; F17.210 Nicotine dependence, cigarettes, uncomplicated; F31.9 Bipolar disorder, unspecified; Z86.711 Personal history of pulmonary embolism; Z90.49 Acquired absence of other specified parts of digestive tract; Z96.642 Presence of left artificial hip joint; X58.XXXD Exposure to other specified factors, subsequent encounter ==

== ENCOUNTER 2021-11-06 10:48 | Emergency (ER) | payer OTHER ==
[~2021-11-06] VITALS: Ht 165.1 cm; Wt 120.2 kg
[2021-11-06 12:25] LABS: HEMATOCRIT 30.6 % (37.0-47.0); MEAN CELL VOLUME 94.2 fl (81.0-99.0); MEAN CORPUSCULAR HGB 31.1 pg (27.0-31.0); MEAN PLATELET VOLUME 9.4 fl (9.6-12.3); PLATELET COUNT AUTOMATED 174 10*3/uL (130-400); RED BLOOD COUNT 3.25 10*6/uL (4.10-5.10); RED CELL DISTRI WIDTH 15.2 % (0-14.5)
[2021-11-06 12:26] LABS: MANUAL DIFF REFLEX YES
[2021-11-06 12:46] LABS: CREATININE 1.29 mg/dL (0.55-1.02); POTASSIUM 3.6 mmol/L (3.5-5.1)
[2021-11-06 12:56] LABS: BASOPHILS 1 % (0-1); PLATELET SUFFICIENCY NORMAL (NORMAL); TOTAL CELLS COUNTED 100 #CELLS
[2021-11-09] MEDS ORDERED: DILTIAZEM HCL120 M2 PO (22:38)
[2021-11-09] MEDS ORDERED: DIVALPROEX SOD500 M1 PO (22:38)
== END 2021-11-06 14:53 | disposition home or self-care (01) ==
LOC: ED 10:48
PROVIDERS: Emergency Medicine
DX: S80.01XA Contusion of right knee, initial encounter (principal); S60.221A Contusion of right hand, initial encounter; S09.90XA Unspecified injury of head, initial encounter; I48.91 Unspecified atrial fibrillation; M81.0 Age-related osteoporosis without current pathological fracture; F17.200 Nicotine dependence, unspecified, uncomplicated; Z79.899 Other long term (current) drug therapy; Z79.2 Long term (current) use of antibiotics; Z90.49 Acquired absence of other specified parts of digestive tract; Z96.642 Presence of left artificial hip joint; Z98.890 Other specified postprocedural states; W19.XXXA Unspecified fall, initial encounter; Y93.89 Activity, other specified; Y92.89 Other specified places as the place of occurrence of the external cause; Y99.8 Other external cause status

== ENCOUNTER → 2021-11-06 | Outpatient (CLI) | payer OTHER | END | disposition home or self-care (01) | LOC: WOUNDCARE 10:09 | PROVIDERS: ATTEND Nurse Practitioner Family | DX: S80.11XD Contusion of right lower leg, subsequent encounter (principal); L97.811 Non-pressure chronic ulcer of other part of right lower leg limited to breakdown of skin; E03.9 Hypothyroidism, unspecified; I11.0 Hypertensive heart disease with heart failure; I50.32 Chronic diastolic (congestive) heart failure; I73.9 Peripheral vascular disease, unspecified; J44.9 Chronic obstructive pulmonary disease, unspecified; F31.9 Bipolar disorder, unspecified; F17.210 Nicotine dependence, cigarettes, uncomplicated; Z90.49 Acquired absence of other specified parts of digestive tract; Z96.642 Presence of left artificial hip joint; X58.XXXD Exposure to other specified factors, subsequent encounter ==

== ENCOUNTER → 2021-12-18 | Outpatient (CLI) | payer OTHER ==
[~2021-12-18] MED LIST changes: +ACETAMINOPHEN500 M4 PO; +AMOX-CLAV 875-1 EACH PO; +AUGMENTIN XR 11 EACH PO; +COLACE100 MG PO; +DILTIAZEM HCL120 M2 PO; +DIVALPROEX SOD500 M1 PO; +ELIQUIS5 M1 PO; +MAGNESIUM OXID400 MG PO; +MILK OF MA400 MG/5 M PO; +NEURONTIN300 MG PO; +NICODERM CQ1 EACH T; +RISPERDAL0.5 MG PO; +RISPERDAL1 M1 PO
== END ==
LOC: WOUNDCARE 12-17 18:15
PROVIDERS: ATTEND Nurse Practitioner Family
DX: Z53.21 Procedure and treatment not carried out due to patient leaving prior to being seen by health care provider (principal)

== ENCOUNTER → 2021-12-26 | Outpatient (CLI) | payer OTHER | LOC: WOUNDCARE 01:12 | PROVIDERS: ATTEND Nurse Practitioner Family | DX: Z53.21 Procedure and treatment not carried out due to patient leaving prior to being seen by health care provider (principal) ==

== ENCOUNTER → 2022-01-07 | Outpatient (CLI) | payer OTHER | LOC: WOUNDCARE 02:03 | PROVIDERS: ATTEND Nurse Practitioner Family | DX: S81.801A Unspecified open wound, right lower leg, initial encounter (principal); L97.812 Non-pressure chronic ulcer of other part of right lower leg with fat layer exposed; I11.0 Hypertensive heart disease with heart failure; I50.32 Chronic diastolic (congestive) heart failure; I73.9 Peripheral vascular disease, unspecified; E03.9 Hypothyroidism, unspecified; E66.01 Morbid (severe) obesity due to excess calories; J44.9 Chronic obstructive pulmonary disease, unspecified; F31.9 Bipolar disorder, unspecified; Z90.49 Acquired absence of other specified parts of digestive tract; Z96.642 Presence of left artificial hip joint; X58.XXXD Exposure to other specified factors, subsequent encounter ==

== ENCOUNTER → 2022-01-13 | Outpatient (CLI) | payer OTHER | END | disposition home or self-care (01) | LOC: WOUNDCARE 08:20 → RESCLI 08:20 | PROVIDERS: ATTEND Nurse Practitioner Family | DX: S81.801D Unspecified open wound, right lower leg, subsequent encounter (principal); L97.812 Non-pressure chronic ulcer of other part of right lower leg with fat layer exposed; E66.01 Morbid (severe) obesity due to excess calories; I73.9 Peripheral vascular disease, unspecified; I11.0 Hypertensive heart disease with heart failure; I50.32 Chronic diastolic (congestive) heart failure; E03.9 Hypothyroidism, unspecified; J44.9 Chronic obstructive pulmonary disease, unspecified; F31.9 Bipolar disorder, unspecified; Z87.891 Personal history of nicotine dependence; Z90.49 Acquired absence of other specified parts of digestive tract; Z96.642 Presence of left artificial hip joint; Z68.39 Body mass index [BMI] 39.0-39.9, adult; X58.XXXD Exposure to other specified factors, subsequent encounter ==

== ENCOUNTER → 2022-01-29 | Outpatient (CLI) | payer OTHER | LOC: WOUNDCARE 01:05 | PROVIDERS: ATTEND Nurse Practitioner Family | DX: Z53.21 Procedure and treatment not carried out due to patient leaving prior to being seen by health care provider (principal) ==

== ENCOUNTER 2022-06-01 12:39 | Emergency (ER) | payer OTHER ==
[~2022-06-01] VITALS: Ht 165.1 cm; Wt 89.4 kg
[~2022-06-01 12:39] MED LIST changes: -CLINDAMYCIN HC300 MG PO; -MEGACE 40400 MG/10 PO; -OMNICEF300 MG PO; -VALACYCLOVIR H500 MG PO; -VRAYLAR3 MG PO; -ZITHROMAX500 MG PO
[2022-06-01] MEDS ORDERED: CLINDAMYCIN HC300 MG PO (13:58)
[2022-06-02] MEDS ORDERED: MEGACE 40400 MG/10 PO (12:44)
[2022-06-02] MEDS ORDERED: VRAYLAR3 MG PO (12:44)
[2022-06-04] MEDS ORDERED: PREDNISONE10 MG PO (11:05)
[2022-06-04] MEDS ORDERED: OMNICEF300 MG PO (11:05)
[2022-06-04] MEDS ORDERED: ZITHROMAX500 MG PO (11:05)
[2022-06-04] MEDS ORDERED: VALACYCLOVIR H500 MG PO (11:13)
[2022-06-04] MEDS ORDERED: HYDROCODONE-AC1 EAC1 PO (11:13)
== END 2022-06-01 13:17 | disposition home or self-care (01) ==
LOC: ED 12:39
DX: T81.30XA Disruption of wound, unspecified, initial encounter (principal); F17.210 Nicotine dependence, cigarettes, uncomplicated; Z79.899 Other long term (current) drug therapy; Z90.49 Acquired absence of other specified parts of digestive tract; Z98.890 Other specified postprocedural states; Y92.89 Other specified places as the place of occurrence of the external cause

== ENCOUNTER → 2022-06-01 | Outpatient (CLI) | payer OTHER ==
[~2022-06-01] MED LIST changes: +ACETAMINOPHEN PO; +ANTI-DIARR1 MG/7.5 M PO; +AUGMENTIN 500500 M1 PO; +CARDIZEM CD120 M2 PO; +CHOLECALCIFEROL1 GM MC; +CLINDAMYCIN HC300 MG PO; +DOCUSATE SOD100 MG PO; +Depakote250 MG PO; +FOSFOMYCIN TROME3 GM PO; +GOOD SENSE ACID20 MG PO; +GRALISE300 M1 PO; +HYDROCODON-ACE1 EAC1 PO; +LEVOXYL88 MCG PO; +MEGACE 40400 MG/10 PO; +Mysoline50 MG PO; +NICODERM CQ1 EACH TD; +NYSTATIN15 GM T; +OMNICEF300 MG PO; +POTASSIUM CHLO10 ME4 PO; +REQUIP2 MG PO; +SPIRIVA18 MCG PO; +TRINTELLIX10 MG PEG; +VALACYCLOVIR H500 MG PO; +VRAYLAR3 MG PO; +ZITHROMAX250 MG PO; +ZITHROMAX500 MG PO
== END | disposition home or self-care (01) ==
LOC: CT 05-20 10:00 → LAB 01:00 → CT 01:00
PROVIDERS: ATTEND Specialist
DX: Z51.81 Encounter for therapeutic drug level monitoring (principal); M47.812 Spondylosis without myelopathy or radiculopathy, cervical region; R74.02 Elevation of levels of lactic acid dehydrogenase [LDH]; J43.9 Emphysema, unspecified; Z79.899 Other long term (current) drug therapy